=== PATIENT | female | born 1950 | race Caucasian/White ===

== ENCOUNTER → 2016-03-10 | Outpatient (CLI) | payer OTHER ==
[2016-03-10 09:38] VITALS: BMI 44.6
== END | disposition home or self-care (01) ==
LOC: MNTWWP 09:12
PROVIDERS: ATTEND Family Medicine
DX: E66.9 Obesity, unspecified (principal); Z68.41 Body mass index [BMI] 40.0-44.9, adult

== ENCOUNTER → 2016-03-13 | Outpatient (CLI) | payer OTHER ==
[2016-03-13 09:21] VITALS: BP 156/96; PULSE 114; RESP 14; TEMP 98.6; BMI 47.3
[2016-03-13 11:15] LABS: Anisocytosis Slight; CH 19.2; CHCM 28.4; HCT 33.9 % (34.0-46.0); HDW 3.41; HGB 9.5 gm/dL (11.4-16.0); Hypochromasia Marked; MCH 19.1 pg (25.0-35.0); MCHC 28.1 g/dL (31.0-37.0); Mean Platelet Volume 7.3; Microcytosis Marked; Poikilocytosis Slight; RBC 4.99 m/uL (3.80-5.40); RDW 17.7 % (11.5-15.5); WBC 8.3 k/uL (3.8-10.6)
[2016-03-13 11:35] LABS: ALT 44 U/L (9-52); AST 23 U/L (14-36); Alkaline Phosphatase 100 U/L (38-126); Anion Gap 13 mmol/L; Blood Urea Nitrogen 27 mg/dL (7-17); Calcium 9.8 mg/dL (8.4-10.2); Carbon Dioxide 27 mmol/L (22-30); Chloride 105 mmol/L (98-107); Cholesterol 200 mg/dL (<200); Glucose 132 mg/dL (74-99); HDL Cholesterol 46 mg/dL (40-60); Iron 27 ug/dL (37-170); Non-African American GFR(MDRD) >60 (>60 ml/min/1.73 sqM); Potassium 5.1 mmol/L (3.5-5.1); Sodium 145 mmol/L (137-145); Total Bilirubin 0.3 mg/dL (0.2-1.3); Total Protein 6.9 g/dL (6.3-8.2); Triglycerides 93 mg/dL (<150)
[2016-03-13 11:45] LABS: % Iron Saturation 5.5 % (20-50); Total Iron Binding Capacity 489 ug/dL (265-497)
[2016-03-13 12:21] LABS: Hemoglobin A1C 7.5 % (4.2-6.1)
[2016-03-13 12:40] LABS: Vitamin B12 950 pg/mL (239-931)
--- NOTE | 2016-03-30 17:42 | P.PN ---
Progress Note - Text DATE OF CONSULTATION: 03/13/2016 CHIEF COMPLAINT: Initial bariatric consultation. HISTORY OF PRESENT ILLNESS: Yamileth Jimenez is a very pleasant 65-year-old female who has long-standing history of morbid obesity. She has been evaluating for control of her weight for many, many years. At her height of 5 feet 5-1/2 inches, her ideal body weight is 149 pounds. Her highest weight is incidentally today at 289 pounds. Her body mass index is 47.3. She is 140 pounds overweight. Separately she developed comorbidities related to her obesity as well as end-stage osteoarthritis of the knees. She has already had 2 knee replacements along the right. Her left knee is bone on bone and also pending a knee replacement on the left. She also has osteoarthritis of the hands. She denies any gout, however. She does have degenerative joint disease of the lower back. She also has osteoarthritis of the bilateral ankles. She reports diabetes in her family as well as high blood pressure. She also has a terrible time with her sleep, with snoring as well as restless leg syndrome. She has yet to be treated for obstructive sleep apnea. She reports severe heartburn for over ten years. She is chronically on antacids. She had to actually discontinue Nexium because of untoward side effects. She has had multiple bladder suspension surgeries which failed, secondary to her weight. Since her gallbladder removal she denies any troubles with constipation. She denies any personal family history of Crohn's disease or food allergies. Now she presents for further evaluation and management, as she also complains of panniculitis of her abdomen. She comes in specifically looking into a sleeve gastrectomy as well. PAST MEDICAL HISTORY: 1. Gastroesophageal reflux disease. 2. Morbid obesity. 3. Osteoarthritis of the lower back. 4. Osteoarthritis of bilateral knees. 5. Osteoporosis of the ankles. 6. Hypertension. 7. Panniculitis. PAST SURGICAL HISTORY: 1. Cholecystectomy. 2. Multiple bladder suspension surgeries. 3. Bilateral inguinal hernias. 4. Pinnings along the fingers. 5. Umbilical hernia repair. 6. Right total knee replacement x2. 7. Left foot surgery. 8. Tonsillectomy. 9. History postoperative nausea and vomiting. MEDICATIONS: 1. Mirapex. 2. Prilosec. 3. Meloxicam. 4. Lasix. 5. Benazepril/hydrochlorothiazide. ALLERGIES: DENIES. SOCIAL HISTORY: Denies any active tobacco use, however, she is a former tobacco user. FAMILY HISTORY: Pertinent for morbid obesity, hypertension, diabetes that run in her family. REVIEW OF SYSTEMS: CONSTITUTIONAL: [place] body weight of 149 pounds for her 5-foot 5-1/2-inch frame. Highest weight of 289 pounds. Body mass index of 47.3. HEENT: Denies any troubles with vision or hearing. No reports of dysphagia. ENDOCRINE: Denies any active problems with diabetes or thyroid disorder. CARDIOVASCULAR: She has hypertension, for which she is on at least 2 different medications. She also had a previous cardiac catheterization performed in January of 2014 with findings of no evidence of pulmonary hypertension. Mild left ventricular hypertrophy was also identified. GASTROINTESTINAL: History of gastroesophageal reflux disease over 10 years. She reports intolerance to Nexium. She has been taking her medications daily. MUSCULOSKELETAL: Has osteoarthritis of the bilateral hands, lower back, bilateral knees. NEURO: No reports of stroke or seizure disorder. PSYCH: No reports of depression or suicidal ideation. HEMATOLOGIC: Denies any easy bruising or bleeding. PHYSICAL EXAM: VITAL SIGNS: 98.6, 114, 14, 156/96, 5 feet 5-1/2 inches, 289 pounds. Body mass index 47.3. GENERAL: Well-developed female in no acute distress. HEENT: No sclerae icterus. Extraocular movements grossly intact. Moist buccal mucosa. NECK: Supple without lymphadenopathy. CHEST: Non-labored respirations with equal bilateral excursions. CARDIOVASCULAR: Tachycardic. 2+ palpable pulses. ABDOMEN: Protuberant, soft, nondistended. Hyperemia including hyperpigmentation consistent with chronic panniculitis. MUSCULOSKELETAL: No clubbing, cyanosis or edema. NEURO: No focal or lateralizing signs. Cranial nerves 2 through 12 grossly within normal limits. PSYCH: Appropriate affect. Alert and oriented to person, place and time. LABS: Bariatric metabolic panel was obtained demonstrating hemoglobin low at 9.5. Prior hemoglobin 2 years ago was 10.6. MCV, MCH and MCHC are all low. Marked hyperchromasia identified. BUN elevated at 27. Glucose elevated at 132. Hemoglobin A1c elevated at 7.5. Iron is low at 27. Percent iron saturation also low at 5.5. Ferritin is low at 6. Cholesterol elevated at 200. LDL elevated at 135. Vitamin B12 elevated at 950. Vitamin D low at 20.4. TSH elevated at 8.4. ASSESSMENT: 1. Morbid obesity due to excess calories. 2. Body mass index 47.3. 3. Family history of morbid obesity. 4. Osteoarthritis of bilateral knees. 5. Osteoarthritis of bilateral ankles. 6. 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 7. Gastroesophageal reflux disease. 8. Intolerance to Nexium. 9. Chronic panniculitis. 10. Hypertensive heart disease. 11. Iron deficiency anemia. 12. Diabetes, type 2; new diagnosis. 13. Obstructive sleep apnea. 14. Hypercholesterolemia. 15. Vitamin D deficiency. 16. Hypothyroidism. 17. Restless leg syndrome. 18. Panniculitis. PLAN: 1. She has completed a bariatric metabolic panel with multiple dyscrasias as well as new diagnoses of hypothyroidism, vitamin deficiency, iron deficiency anemia and diabetes, type 2. 2. She reports severe gastroesophageal reflux disease and her current evaluation is for a sleeve gastrectomy. I have gone over with her that the risk of Hernandez's esophagus and her severe reflux may be contraindicated for her procedure of choice. Alternatives were also described at length. 3. She has panniculitis, for which nystatin powder was prescribed for her. 4. Her blood work demonstrates new diagnosis of diabetes, type 2. Recommend glycemic index and diabetic education. 5. Her iron is severely low. Recommend iron supplement. 6. Also would recommend upper and lower endoscopy, as she has anemia of unclear etiology. 7. Vitamin D supplementation 50,000 units weekly. 8. Also recommend start of thyroid supplement, which is essential for appropriate metabolism and for weight loss. 9. Recommend cardiac risk assessment, as on exam she had tachycardia of unclear etiology, and this is a high-risk operation as well. 10. Recommend psych assessment. 11. Recommend medical risk evaluation and clearance. 12. Recommend dietitian classes for gastrectomy-type procedures. 13. Also recommend evaluation for sleep apnea, as she reports restless leg syndrome, snoring and a poor sleep pattern. Thank you for this kind consultation.
== END | disposition home or self-care (01) ==
LOC: BARWHC3 08:50
PROVIDERS: ATTEND Surgery Plastic and Reconstructive Surgery
DX: Z48.815 Encounter for surgical aftercare following surgery on the digestive system (principal); E66.01 Morbid (severe) obesity due to excess calories; Z68.42 Body mass index [BMI] 45.0-49.9, adult; Z84.89 Family history of other specified conditions; M17.0 Bilateral primary osteoarthritis of knee; M19.072 Primary osteoarthritis, left ankle and foot; M19.071 Primary osteoarthritis, right ankle and foot; M47.896 Other spondylosis, lumbar region; K21.9 Gastro-esophageal reflux disease without esophagitis; T47.1X5A Adverse effect of other antacids and anti-gastric-secretion drugs, initial encounter; M79.3 Panniculitis, unspecified; I10 Essential (primary) hypertension; D50.9 Iron deficiency anemia, unspecified; E11.9 Type 2 diabetes mellitus without complications; E78.00 Pure hypercholesterolemia, unspecified; E55.9 Vitamin D deficiency, unspecified; E03.9 Hypothyroidism, unspecified; Z79.899 Other long term (current) drug therapy; Z87.891 Personal history of nicotine dependence; R13.10 Dysphagia, unspecified
CPT/HCPCS: 80053; 80061; 82306; 82607; 82728; 82746; 83036; 83540; 83550; 84425; 84443; 85027; 99201

== ENCOUNTER → 2016-03-20 | Outpatient (CLI) | payer OTHER ==
--- NOTE | 2016-03-21 07:39 | CT ---
EXAMINATION TYPE: CT abdomen pelvis w con DATE OF EXAM: 03/20/2016 7:47 PM REFERENCE: NONE HISTORY: R10.9 Abd and Pelvis Pain R19.09 Abd/Pel Mass HISTORY: Pt states of lump on right side of abdomen [id number]. REFERENCE: NONE CT DLP: 1990.6 mGy Automated exposure control for dose reduction was used. TECHNIQUE: Helical acquisition through the abdomen and pelvis was obtained following the oral ingesti on of with Oral Contrast and following intravenous administration of 100 mL of Omnipaque 300. The alma a was reformatted in axial, coronal and sagittal projections. FINDINGS: Visualized portions of the lungs are clear. There is no pleural or pericardial fluid. There is a moderate hiatal hernia. Within the abdomen, there is prominence of the liver which measures 24 cm. This is partially due to a Kita's lobe. The gallbladder is been removed. The spleen is normal. Both adrenal glands appear normal. Both kidneys demonstrate function and appear morphologically normal. The pancreas appears normal. There is no significant retroperitoneal, iliac or inguinal adenopathy. Uterus and ovaries are unremarkable. The bladder is not distended. There is no significant diverticular change and there is no radiographic evidence of diverticulitis. The appendix is not visualized. Small bowel loops appear normal. There is a ventral hernia containing fat only with a mouth measuring 5.5 cm. No free fluid and no free air is seen. There is hypertrophic spondylosis as well as severe degenerative disc disease within the spine. There is a moderate levoscoliosis. IMPRESSION: 1. VENTRAL HERNIA CONTAINING FAT ONLY MAY BE THE SOURCE OF THE PATIENT'S ABDOMINAL MASS. 2. PROMINENT HIATAL HERNIA. 3. HEPATOMEGALY. 4. LEVOSCOLIOSIS AND SEVERE DEGENERATIVE CHANGES WITHIN THE SPINE.
--- NOTE | 2016-05-14 08:25 | P.GSHP ---
History of Present Illness H&P Date: 05/14/16 CHIEF COMPLAINT: GERD HISTORY OF PRESENT ILLNESS: The patient is a 65-year-old male who presents reports gastroesophageal reflux disease. Upper endoscopy was offered for further evaluation and management. PAST MEDICAL HISTORY: Please see list. PAST SURGICAL HISTORY: Please see list. MEDICATIONS: Please see list. ALLERGIES: Please see list. SOCIAL HISTORY: No illicit drug use FAMILY HISTORY: No reports of Crohn disease or ulcerative colitis. REVIEW OF ORGAN SYSTEMS: CONSTITUTIONAL: No reports of fevers or chills. GI: Denies any blood in stools or constipation. PHYSICAL EXAM: VITAL SIGNS: Stable GENERAL: Well-developed and pleasant in no acute distress. HEENT: No scleral icterus. Extraocular movements grossly intact. Moist buccal mucosa. NECK: Supple without lymphadenopathy. CHEST: Unlabored respirations. Equal bilateral excursions. CARDIOVASCULAR: Regular rate and rhythm. Distal 2+ pulses. ABDOMEN: Soft, nondistended. MUSCULOSKELETAL: No clubbing, cyanosis, or edema. ASSESSMENT: 1. Gastroesophageal reflux disease PLAN: 1. Recommend proceeding with an upper endoscopy Past Medical History Past Medical History: GERD/Reflux, Hypertension, Osteoarthritis (OA) Additional Past Medical History / Comment(s): patient states that she has a 20% reduction in breathing/lung capacity as of March 2016, Water retention, restless leg syndrome, hiatal hernia dx in March 2016, LEFT KNEE IS "BONE ON BONE" patient completed series of 3 Symvis injections in March 2016 (after cortisone failed) History of Any Multi-Drug Resistant Organisms: None Reported Past Surgical History: Cholecystectomy, Hernia Repair, Joint Replacement, Orthopedic Surgery, Tonsillectomy Additional Past Surgical History / Comment(s): Inguinal HERNIA REPAIR X7,1 umbilical hernia, RT TOT KNEE,BLADDER SURGERY,LT FOOT SURGERY, FUSIONS TO 2ND DIGITS OF LEFT HAND, RT HAND HAS METAL PLATE (NOT FUSION) IN DIGIT 2, EYELID LIFT Past Anesthesia/Blood Transfusion Reactions: Postoperative Nausea & Vomiting ( PONV) Additional Past Anesthesia/Blood Transfusion Reaction / Comment(s): NO HX OF TRANSFUSION Past Psychological History: No Psychological Hx Reported Smoking Status: Former smoker Past Alcohol Use History: Rare Additional Past Alcohol Use History / Comment(s): STARTED SMOKING AT AGE 20 QUIT SMOKING AT AGE 22 Past Drug Use History: None Reported - Past Family History Father Family Medical History: Hypertension, Osteoarthritis (OA) Additional Family Medical History / Comment(s): FROM HEART ISSUES AT AGE 86 Mother Family Medical History: Hypertension, Osteoarthritis (OA) Additional Family Medical History / Comment(s): CANCEROUS TUMOR IN LUNG (NOT CANCER PER PATIENT), AT AGE 80 FROM HEART ATTACK Medications and Allergies Home Medications Medication Instructions Recorded Confirmed Type Meloxicam 15 mg PO QAM 02/13/14 05/14/16 History Omeprazole [PriLOSEC] 20 mg PO QAM 02/13/14 05/14/16 History Pramipexole [Mirapex] 3 mg PO HS 02/13/14 05/14/16 History Benazepril HCl 40 mg PO QAM 03/31/16 05/14/16 History Furosemide [Lasix] 20 mg PO QAM 03/31/16 05/14/16 History Allergies Allergy/AdvReac Type Severity Reaction Status Date / Time No Known Allergies Allergy Verified 05/12/16 14:32
== END | disposition home or self-care (01) ==
LOC: RADCTMAIN 17:30
PROVIDERS: ATTEND Surgery Plastic and Reconstructive Surgery
DX: K43.9 Ventral hernia without obstruction or gangrene (principal); K44.9 Diaphragmatic hernia without obstruction or gangrene; R16.0 Hepatomegaly, not elsewhere classified; R19.4 Change in bowel habit; R10.13 Epigastric pain
CPT/HCPCS: 74177; Q9967

== ENCOUNTER 2016-05-14 07:39 | Day surgery (SDC) | payer OTHER ==
[2016-03-31 15:51] VITALS: BMI 44.6
[~2016-05-14 07:39] MED LIST: LACTATED RINGERS 1,000 ML IV SCH; LIDOCAINE 1% 20 ML VIAL (10MG/ML) FOR IV START INTRADERMA PRN
[2016-05-14 08:16] VITALS: TEMP 97
[2016-05-14] MEDS ORDERED: ONDANSETRON 4 MG/2 ML VIAL IVP ONE (08:17)
--- NOTE | 2016-05-14 08:29 | P.GSHP ---
History of Present Illness H&P Date: 05/14/16 CHIEF COMPLAINT: GERD HISTORY OF PRESENT ILLNESS: The patient is a 65-year-old female who presents reports gastroesophageal reflux disease. Upper endoscopy was offered for further evaluation and management. PAST MEDICAL HISTORY: Please see list. PAST SURGICAL HISTORY: Please see list. MEDICATIONS: Please see list. ALLERGIES: Please see list. SOCIAL HISTORY: No illicit drug use FAMILY HISTORY: No reports of Crohn disease or ulcerative colitis. REVIEW OF ORGAN SYSTEMS: CONSTITUTIONAL: No reports of fevers or chills. GI: Denies any blood in stools or constipation. PHYSICAL EXAM: VITAL SIGNS: Stable GENERAL: Well-developed and pleasant in no acute distress. HEENT: No scleral icterus. Extraocular movements grossly intact. Moist buccal mucosa. NECK: Supple without lymphadenopathy. CHEST: Unlabored respirations. Equal bilateral excursions. CARDIOVASCULAR: Regular rate and rhythm. Distal 2+ pulses. ABDOMEN: Soft, nondistended. MUSCULOSKELETAL: No clubbing, cyanosis, or edema. ASSESSMENT: 1. Gastroesophageal reflux disease PLAN: 1. Recommend proceeding with an upper endoscopy Past Medical History Past Medical History: GERD/Reflux, Hypertension, Osteoarthritis (OA), Skin Disorder Additional Past Medical History / Comment(s): Restless leg syndrome, hiatal hernia. RESTLESS LEG. cHAFING TO GROIN AND BREASTS. History of Any Multi-Drug Resistant Organisms: None Reported Past Surgical History: Adenoidectomy, Bladder Surgery, Cholecystectomy, Hernia Repair, Joint Replacement, Orthopedic Surgery, Tonsillectomy Additional Past Surgical History / Comment(s): Inguinal HERNIA REPAIR X7,1 umbilical hernia, RT TOTAL KNEE x2,BLADDER SURGERY,LT FOOT SURGERY,LEFT INDEX FINGER X2 SURG. RT HAND HAS METAL PLATE. EYELID LIFT,LASIK SURG ALISHA. Past Anesthesia/Blood Transfusion Reactions: Postoperative Nausea & Vomiting ( PONV) Additional Past Anesthesia/Blood Transfusion Reaction / Comment(s): NO HX OF TRANSFUSION Past Psychological History: No Psychological Hx Reported Smoking Status: Former smoker Past Alcohol Use History: Rare Additional Past Alcohol Use History / Comment(s): STARTED SMOKING AT AGE 20, QUIT SMOKING AT AGE 22, SMOKED 1/2 PPD. Past Drug Use History: None Reported - Past Family History Father Family Medical History: Hypertension, Osteoarthritis (OA) Additional Family Medical History / Comment(s): FROM HEART ISSUES AT AGE 86 Mother Family Medical History: Hypertension, Osteoarthritis (OA) Additional Family Medical History / Comment(s): CANCEROUS TUMOR IN LUNG (NOT CANCER PER PATIENT), AT AGE 80 FROM HEART ATTACK Medications and Allergies Home Medications Medication Instructions Recorded Confirmed Type Meloxicam 15 mg PO QAM 02/13/14 05/14/16 History Omeprazole [PriLOSEC] 20 mg PO QAM 02/13/14 05/14/16 History Pramipexole [Mirapex] 3 mg PO HS 02/13/14 05/14/16 History Benazepril HCl 40 mg PO QAM 03/31/16 05/14/16 History Furosemide [Lasix] 20 mg PO QAM 03/31/16 05/14/16 History Allergies Allergy/AdvReac Type Severity Reaction Status Date / Time No Known Allergies Allergy Verified 05/12/16 14:32 Surgical - Exam Vital Signs Temp Pulse Resp BP Pulse Ox 97.0 F L 105 H 14 169/86 95 05/14/16 08:14 05/14/16 08:14 05/14/16 08:14 05/14/16 08:14 05/14/16 08:14
[2016-05-14] MEDS ORDERED: GLYCOPYRROLATE 0.2 MG/ML 2 ML VIAL ONE (08:30)
[2016-05-14] MEDS ORDERED: LIDOCAINE 1% INJ 10MG/ML (20 ML MDV) ONE (08:30)
[2016-05-14] MEDS ORDERED: PROPOFOL 10 MG/ML 20 ML VIAL IV ONE (08:30)
--- NOTE | 2016-05-14 08:51 | P.PCN ---
Date of Procedure: 05/14/16 Description of Procedure: PREOPERATIVE DIAGNOSIS: Gastroesophageal reflux disease. POSTOPERATIVE DIAGNOSIS: Chronic gastritis with stigmata of bleed Diaphragmatic hiatal hernia, type III. Gastroesophageal reflux disease. OPERATION: Esophagogastroduodenoscopy with biopsies along antrum. SURGEON: Alexia Trujillo MD ANESTHESIA: MAC. INDICATIONS: The patient is a 65-year-old female who presents with a history of reflux disease. Benefits and risks of the procedure were described. Informed consent was obtained. DESCRIPTION: The patient was brought into the endoscopy suite and laid in the left lateral decubitus position. An Olympus gastroscope was passed along the posterior oropharynx down to the distal esophagus where the squamocolumnar junction was encountered at 33 cm from the incisors. The stomach was entered and moderatel bile reflux was found. Additional findings are listed below. Biopsies with cold forceps were obtained of the antrum. The first through third portion of the duodenum was examined and unremarkable. Retroflexion of the scope confirmed Hill grade 4 lower esophageal valve. The squamocolumnar junction demostrated LA grade B erosive esophagitis. The stomach was desufflated. The patient tolerated the procedure well. FINDINGS: Squamocolumnar junction 33 cm from the incisors. Diaphragmatic hiatal hernia, mixed type II and type III sliding type 7 cm. Diaphragmatic hiatus at 40 cm from the incisors Hill grade 4 lower esophageal valve. LA grade B erosive esophagitis. Active gastritis superficial along antrum with recent stigmata of bleed. No active duodenitis. RECOMMENDATIONS: Continue medical therapy. Further recommendations pending results of pathology report. Upper endoscopy as needed.
[2016-05-14 08:53] VITALS: RESP 16
[2016-05-14 09:10] VITALS: BP 135/88; PULSE 102
== END 2016-05-14 10:09 | disposition home or self-care (01) ==
LOC: ORWHC2ENDO 07:39
PROVIDERS: ATTEND Surgery Plastic and Reconstructive Surgery
DX: K21.0 Gastro-esophageal reflux disease with esophagitis (principal); K22.10 Ulcer of esophagus without bleeding; K29.31 Chronic superficial gastritis with bleeding; K44.9 Diaphragmatic hernia without obstruction or gangrene; I10 Essential (primary) hypertension; G25.81 Restless legs syndrome; M19.90 Unspecified osteoarthritis, unspecified site; Z87.891 Personal history of nicotine dependence; E66.01 Morbid (severe) obesity due to excess calories; Z68.41 Body mass index [BMI] 40.0-44.9, adult; Z79.899 Other long term (current) drug therapy
CPT/HCPCS: 88305; 88342; 43239; J2405; J2001; J2704

== ENCOUNTER → 2016-05-22 | Outpatient (CLI) | payer OTHER ==
[2016-05-22 12:17] VITALS: BP 189/106; PULSE 107; RESP 16; TEMP 98.6; BMI 46.9
--- NOTE | 2016-06-19 21:57 | P.PN ---
Progress Note - Text DATE OF SERVICE: 05/22/2016. CHIEF COMPLAINT: Bariatric assessment. HISTORY OF PRESENT ILLNESS: Yamileth Jimenez is a 65-year-old female who initially presented to the bariatric program in July 2016. At her 5 feet 5-1/2 inches, her ideal body weight is 149 pounds. Her highest weight was 289 pounds. Today she comes in weighing 286 pounds. Body mass index is down from 47.5 down to 46.9. She is 137 pounds overweight. She has completed an upper endoscopy. She also is pending further medical risk assessment. PAST MEDICAL HISTORY: 1. Gastroesophageal reflux disease. 2. Morbid obesity. 3. Osteoarthritis of the lower back. 4. Osteoarthritis of bilateral knees. 5. Osteoporosis of the ankles. 6. Hypertension. 7. Panniculitis. PAST SURGICAL HISTORY: 1. Cholecystectomy. 2. Multiple bladder suspension surgeries. 3. Bilateral inguinal hernias. 4. Pinnings along the fingers. 5. Umbilical hernia repair. 6. Right total knee replacement x2. 7. Left foot surgery. 8. Tonsillectomy. 10. Upper endoscopy. MEDICATIONS: 1. Mirapex. 2. Prilosec. 3. Meloxicam. 4. Lasix. 5. Benazepril/hydrochlorothiazide. ALLERGIES: DENIES. SOCIAL HISTORY: Denies any active tobacco use, however, she is a former tobacco user. FAMILY HISTORY: Pertinent for morbid obesity, hypertension, diabetes that run in her family. REVIEW OF SYSTEMS: CONSTITUTIONAL: [place] body weight is 149 pounds. She is 137 pounds overweight. HEENT: Denies any troubles with vision or hearing. No reports of dysphagia. ENDOCRINE: Denies any active problems with diabetes or thyroid disorder. CARDIOVASCULAR: She has hypertension, for which she is on at least 2 different medications. She also had a previous cardiac catheterization performed in January of 2014 with findings of no evidence of pulmonary hypertension. Mild left ventricular hypertrophy was also identified. GASTROINTESTINAL: History of gastroesophageal reflux disease over 10 years. She reports intolerance to Nexium. She has been taking her medications daily. MUSCULOSKELETAL: Has osteoarthritis of the bilateral hands, lower back, bilateral knees. NEURO: No reports of stroke or seizure disorder. PSYCH: No reports of depression or suicidal ideation. HEMATOLOGIC: Denies any easy bruising or bleeding. PHYSICAL EXAM: VITAL SIGNS: 98.6, 107, 16, 189/106, 5 feet 5-1/2 inches, 289 pounds. Body mass index 47.3. GENERAL: Well-developed female in no acute distress. HEENT: No sclerae icterus. Extraocular movements grossly intact. Moist buccal mucosa. NECK: Supple without lymphadenopathy. CHEST: Non-labored respirations with equal bilateral excursions. CARDIOVASCULAR: Tachycardic. 2+ palpable pulses. ABDOMEN: Protuberant, soft, nondistended. Hyperemia including hyperpigmentation consistent with chronic panniculitis. Soft, nontender, nondistended. MUSCULOSKELETAL: No clubbing, cyanosis or edema. NEURO: No focal or lateralizing signs. Cranial nerves 2 through 12 grossly within normal limits. PSYCH: Appropriate affect. Alert and oriented to person, place and time. STUDIES: Upper endoscopy demonstrates a large diaphragmatic hiatal hernia of over 7 cm. LA grade B erosive esophagitis identified. Gastritis also identified. Pathology consistent with chronic gastritis. LABS: Bariatric metabolic panel reviewed, demonstrating hemoglobin was low at 9.5. Hematocrit low at 33.9. BUN elevated at 27. Glucose elevated at 132, hemoglobin A1c elevated 10.5. Iron was 27. Percent iron saturation was 5.5. Ferritin was 6. Cholesterol elevated at 200. HDL elevated at 135. Vitamin B12 elevated at 950. Vitamin D low at 20.4. TSH elevated at 8.4. ASSESSMENT: 1. Morbid obesity due to excess calories. 2. Body mass index reduced from 47.5 down to 46.9. 3. Family history of morbid obesity. 4. Osteoarthritis of bilateral knees. 5. Osteoarthritis of bilateral ankles. 6. 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 7. Gastroesophageal reflux disease. 8. Intolerance to Nexium. 9. Chronic panniculitis. 10. Hypertensive heart disease. 11. Iron deficiency anemia. 12. Diabetes, type 2; new diagnosis. 13. Obstructive sleep apnea. 14. Hypercholesterolemia. 15. Vitamin D deficiency. 16. Hypothyroidism. 17. Restless leg syndrome. 18. Panniculitis. 19. Poorly controlled hypothyroidism. PLAN: 1. I recommend correction of thyroid whereby recommend increase in her thyroid medication. 2. I recommend vitamin D supplements. 3. Recommend iron supplements. 4. With her findings of very large diaphragmatic hiatal hernia, I recommend repair at the time of her procedure of choice. 5. Recommend diabetic education. 6. With her findings may also benefit from gastric bypass was also described. 7. Recommend referral to a sleep center for obstructive sleep apnea management. 8. Also recommend psychological assessment per insurance guidelines. 9. Recommend recheck of blood work after correction of thyroid and iron. Will need at least 3 months for correction for iron or iron infusion.
== END | disposition home or self-care (01) ==
LOC: BARWHC3 10:22
PROVIDERS: ATTEND Surgery Plastic and Reconstructive Surgery
DX: Z48.815 Encounter for surgical aftercare following surgery on the digestive system (principal); E66.01 Morbid (severe) obesity due to excess calories; Z68.42 Body mass index [BMI] 45.0-49.9, adult; E89.1 Postprocedural hypoinsulinemia; E44.0 Moderate protein-calorie malnutrition; Z98.84 Bariatric surgery status; E11.65 Type 2 diabetes mellitus with hyperglycemia; Z79.899 Other long term (current) drug therapy
CPT/HCPCS: 99211

== ENCOUNTER → 2016-07-03 | Outpatient (CLI) | payer OTHER ==
--- NOTE | 2016-07-03 19:46 | CONS ---
DATE OF CONSULTATION: 07/03/2016 This patient is a 65-year-old lady who has been evaluated in the sleep center for possible obstructive sleep apnea-hypopnea syndrome. HISTORY OF PRESENT ILLNESS/SLEEP-WAKE EVALUATION: Patient had a sleep study done about 15 years ago in a different institution. At that time she was told about restless leg syndrome and possible periodic limb movements. Since that sleep study, patient's weight has increased by about 100 pounds. At present her sleep schedule on working days is from around 10 p.m. until 6 a.m., on weekends from around 10 p.m. until 7 a.m. Sometimes she may have problems with falling asleep. No TV in bedroom. She sleeps on the side or stomach position; prefers not to sleep on her back. She has loud snoring, multiple awakenings from sleep, about 3 times, with 3 episodes of nocturia, symptoms of restless legs, although she is on treatment with pramipexole. During the day she feel sleepiness. Martinez Sleepiness Scale is significantly increased at 13. She takes one nap around 2 p.m. No vivid dreams during naps. Past medical history is positive for: 1. Recently developed significant swelling of the legs. 2. History of hypothyroidism. 3. Diabetes mellitus. 4. Acid reflux. 5. Polyarthritis. 6. Allergies. 7. Hiatal hernia. PAST SURGICAL HISTORY: Right knee replacement. MEDICATIONS: 1. Metformin. 2. Meloxicam. 3. Vitamin D. 4. Furosemide. 5. Iron supplement. 6. Thyroid supplement. 7. Omeprazole. 8. Pramipexole. 9. Zyrtec. SOCIAL HISTORY: Positive for smoking for 2 years in her 20s. Alcohol consumption rarely. FAMILY HISTORY: Hypertension, arthritis, snoring, acid reflux, diabetes, thyroid problems, restless legs. PHYSICAL EXAMINATION: GENERAL: A pleasant 65-year-old lady without distress. VITAL SIGNS: BP 165/80, HR 106, RR 16. Height 5 feet 5 inches. Weight 295. BMI 49.0. Neck 15-1/2 inches in circumference. Temperature 98.0. Oxygen saturation at room air 97%. HEENT: PERRLA, EOMI. Evaluation of oropharynx showed tongue protrudes midline; extremely low position of soft palate. Restriction of nasal breathing bilaterally. NECK: Supple. No JVD. Thyroid is not palpable. LUNGS: Clear to percussion and to auscultation. Good air exchange. No wheezing or rhonchi. HEART: Systolic murmur on aorta. ABDOMEN: Obese. EXTREMITIES: Two plus bilateral ankle edema. RUG MEASURER: Awake, alert, and oriented x3. Cranial nerves 2 to 7 intact. There is no fasciculation or atrophy noted. No focal deficits observed. IMPRESSION: 1. Snoring, multiple awakenings from sleep with nocturia, extremely low position of soft palate, excessive daytime sleepiness, obesity; obstructive sleep apnea-hypopnea syndrome. 2. Morbid obesity; body mass index of 49.0. 3. Hypertension in the office. 4. Diabetes mellitus. 5. Hypothyroidism. 6. Acid reflux. 7. Systolic murmur on aorta. 8. Allergies. 9. Restriction of nasal breathing. 10. Status post total right knee replacement x2. 11. History of hiatal hernia. 12. History of iron deficiency anemia. 13. History of restless legs, on treatment with Pramipexole. PLAN: 1. Polysomnography for evaluation of patient's breathing during sleep. 2. CPAP/BiPAP titration if sleep study confirms obstructive sleep apnea-hypopnea syndrome. 3. Preferable position during sleep on the side. 4. No driving if patient feels any sleepiness. Patient is aware of civil and criminal liability for unsafe driving. 5. I will see patient for follow-up visit to explain results of the testing and following plan. 6. Consider echocardiogram. Thank you very much for referring this patient for consultation. Sincerely, Easton Haynes MD, PhD, FAASM. Diplomat of [place] [employer], Sleep Medicine Board by [place] [employer] [place] [employer] Traffic Control Technician of [facility]
== END ==
LOC: SLEEP 15:06
PROVIDERS: ATTEND Internal Medicine
DX: G47.33 Obstructive sleep apnea (adult) (pediatric) (principal); E66.01 Morbid (severe) obesity due to excess calories; I10 Essential (primary) hypertension; E11.9 Type 2 diabetes mellitus without complications; E03.9 Hypothyroidism, unspecified; K21.9 Gastro-esophageal reflux disease without esophagitis; K44.9 Diaphragmatic hernia without obstruction or gangrene; R01.1 Cardiac murmur, unspecified; D50.9 Iron deficiency anemia, unspecified; Z87.891 Personal history of nicotine dependence; Z79.1 Long term (current) use of non-steroidal anti-inflammatories (NSAID); Z68.42 Body mass index [BMI] 45.0-49.9, adult; G25.81 Restless legs syndrome
CPT/HCPCS: 99211

== ENCOUNTER → 2016-08-02 | Outpatient (CLI) | payer OTHER ==
[2016-08-02 10:02] LABS: Anisocytosis Slight; CH 22.7; CHCM 29.4; HCT 39.8 % (34.0-46.0); HDW 2.84; HGB 11.8 gm/dL (11.4-16.0); Hypochromasia Marked; MCH 22.8 pg (25.0-35.0); MCHC 29.6 g/dL (31.0-37.0); MCV 77.2 fL (80.0-100.0); Mean Platelet Volume 7.5; Microcytosis Moderate; RBC 5.16 m/uL (3.80-5.40); RDW 19.1 % (11.5-15.5); WBC 6.9 k/uL (3.8-10.6)
[2016-08-02 10:08] LABS: ALT 36 U/L (9-52); AST 21 U/L (14-36); Alkaline Phosphatase 89 U/L (38-126); Anion Gap 8 mmol/L; Blood Urea Nitrogen 23 mg/dL (7-17); Calcium 9.6 mg/dL (8.4-10.2); Carbon Dioxide 28 mmol/L (22-30); Chloride 106 mmol/L (98-107); Glucose 142 mg/dL (74-99); Non-African American GFR(MDRD) >60 (>60 ml/min/1.73 sqM); Potassium 4.7 mmol/L (3.5-5.1); Sodium 142 mmol/L (137-145); Total Bilirubin 0.4 mg/dL (0.2-1.3); Total Protein 7.3 g/dL (6.3-8.2)
[2016-08-02 12:46] LABS: Hemoglobin A1C 7.6 % (4.2-6.1)
== END | disposition home or self-care (01) ==
LOC: LABWHC1 09:36
PROVIDERS: ATTEND Surgery Plastic and Reconstructive Surgery
DX: E66.01 Morbid (severe) obesity due to excess calories (principal); E44.0 Moderate protein-calorie malnutrition; E89.1 Postprocedural hypoinsulinemia
CPT/HCPCS: 36415; 80053; 83036; 84443; 85027

== ENCOUNTER 2016-08-21 12:00 | Inpatient (IN) | payer OTHER ==
[2016-08-19 10:42] VITALS: BMI 44.6
[2016-08-22] MEDS ORDERED: HEPARIN SODIUM,PORCINE 5,000 UNIT/ML 1 ML VIAL SQ ONE (05:00)
[2016-08-22] MEDS ORDERED: DEXAMETHASONE SOD PHOSPHATE 10 MG/ML 1 ML VIAL IV ONE (05:27)
[2016-08-22] MEDS ORDERED: ONDANSETRON 4 MG/2 ML VIAL IVP ONE (05:27)
[2016-08-22] MEDS ORDERED: ACETAMINOPHEN IV (For NPO) 1,000 MG in EMPTY BAG 1 BAG IVPB ONE (11:12)
--- NOTE | 2016-08-22 11:12 | P.GSHP ---
History of Present Illness H&P Date: 08/22/16 CHIEF COMPLAINT: Paraesophageal hiatal hernia with gastroesophageal reflux disease. HISTORY OF PRESENT ILLNESS: The patient is a 65-year-old female who presents with paraesophageal hiatal hernia. She has completed an upper endoscopy workup. Now she presents for surgical intervention. PAST MEDICAL HISTORY: Please see list. PAST SURGICAL HISTORY: Please see list. MEDICATIONS: Please see list. ALLERGIES: Please see list. SOCIAL HISTORY: No illicit drug use FAMILY HISTORY: No reports of Crohn disease or ulcerative colitis. REVIEW OF ORGAN SYSTEMS: CONSTITUTIONAL: No reports of fevers or chills. GI: Denies any blood in stools or constipation. PHYSICAL EXAM: VITAL SIGNS: Stable GENERAL: Well-developed pleasant and in no acute distress. HEENT: No scleral icterus. Extraocular movements grossly intact. Moist buccal mucosa. NECK: Supple without lymphadenopathy. CHEST: Unlabored respirations. Equal bilateral excursions. CARDIOVASCULAR: Regular rate and rhythm. Distal 2+ pulses. ABDOMEN: Soft, nondistended. No peritoneal signs. MUSCULOSKELETAL: No clubbing, cyanosis, or edema. ASSESSMENT: 1. Diaphragmatic paraesophageal hiatal hernia with severe gastroesophageal reflux disease. PLAN: 1. Recommend proceeding with a laparoscopic paraesophageal hiatal hernia with possible mesh. 2. Benefits and risks of surgical intervention was discussed including possibility of open technique. 3. Inpatient hospitalization recommended of 2 nights or less. 4. DVT prophylaxis. 5. Antibiotic prophylaxis. 6. She has also completed a very low caloric high-protein diet to address underlying hepatomegaly. Past Medical History Past Medical History: Diabetes Mellitus, GERD/Reflux, Hypertension, Osteoarthritis (OA), Sleep Apnea/CPAP/BIPAP Additional Past Medical History / Comment(s): patient states that she has a 20% reduction in breathing/lung capacity as of March 2016, Water retention, restless leg syndrome, hiatal hernia dx in March 2016, LEFT KNEE IS "BONE ON BONE" patient completed series of 3 Symvis injections in March 2016 (after cortisone failed) , RECENT DX OF KARAN-TO GET CPAP BUT WILL NOT HAVE BY PROCEDURE DATE History of Any Multi-Drug Resistant Organisms: None Reported Past Surgical History: Cholecystectomy, Hernia Repair, Joint Replacement, Orthopedic Surgery, Tonsillectomy Additional Past Surgical History / Comment(s): Inguinal HERNIA REPAIR X7,1 umbilical hernia, RT TKA,BLADDER SURGERY,LT FOOT SURGERY, FUSIONS TO 2ND DIGITS OF LEFT HAND, RT HAND HAS METAL PLATE (NOT FUSION) IN DIGIT 2, EYELID LIFT, RECENT CORTISONE INJECTION LT SHOULDER Past Anesthesia/Blood Transfusion Reactions: Postoperative Nausea & Vomiting ( PONV) Additional Past Anesthesia/Blood Transfusion Reaction / Comment(s): NO HX OF TRANSFUSION Smoking Status: Former smoker - Past Family History Father Family Medical History: Hypertension, Osteoarthritis (OA) Additional Family Medical History / Comment(s): FROM HEART ISSUES AT AGE 86 Mother Family Medical History: Cancer, Hypertension, Osteoarthritis (OA) Additional Family Medical History / Comment(s): CANCEROUS TUMOR IN LUNG (NOT LUNG CANCER PER PATIENT), AT AGE 80 FROM HEART ATTACK Medications and Allergies Home Medications Medication Instructions Recorded Confirmed Type Pramipexole [Mirapex] 3 mg PO HS 02/13/14 08/19/16 History Benazepril HCl 40 mg PO QAM 03/31/16 08/19/16 History Furosemide [Lasix] 20 mg PO QAM 03/31/16 08/19/16 History Ergocalciferol [Vitamin D2 50,000 unit PO MO 08/19/16 08/19/16 History (DRISDOL)] Allergies Allergy/AdvReac Type Severity Reaction Status Date / Time No Known Allergies Allergy Verified 08/19/16 10:33
[2016-08-22] MEDS: LACTATED RINGERS 1,000 ML IV SCH (14:17)
[2016-08-22 14:24] LABS: Glucose,Whole Blood 130 mg/dL (75-99)
[2016-08-22] MEDS ORDERED: VECURONIUM 10 MG VIAL IV ONE (17:34)
[2016-08-22] MEDS ORDERED: GLYCOPYRROLATE 0.2 MG/ML 2 ML VIAL ONE (17:34)
[2016-08-22] MEDS ORDERED: PHENYLEPHRINE-0.9% NACL SYG 1 MG/10 ML SYRINGE ONE (17:34)
[2016-08-22] MEDS ORDERED: KETOROLAC 30 MG/ML 1 ML VIAL ONE (17:34)
[2016-08-22] MEDS ORDERED: MIDAZOLAM 2 MG/2 ML VIAL ONE (17:34)
[2016-08-22] MEDS ORDERED: PROPOFOL 10 MG/ML 20 ML VIAL IV ONE (17:34)
[2016-08-22] MEDS ORDERED: SUCCINYLCHOLINE CHLORIDE VIAL 200 MG/10 ML VIAL IV ONE (17:34)
[2016-08-22] MEDS: ceFAZolin 3 GM in SODIUM CHLORIDE 0.9% 100 ML IVPB ONE ×2 (17:34→18:02)
[2016-08-22] MEDS ORDERED: LIDOCAINE 1% INJ 10MG/ML (20 ML MDV) ONE (17:34)
[2016-08-22] MEDS ORDERED: NEOSTIGMINE 1 MG/ML 10 ML VIAL ONE (17:34)
[2016-08-22] MEDS ORDERED: fentaNYL (PF) 50 MCG/ML 2 ML AMP ONE (17:34)
[2016-08-22] MEDS ORDERED: BUPIVACAIN-EPI 0.5%-1:200,000 30 ML VIAL SQ ONE (18:13)
[2016-08-22] MEDS ORDERED: LACTATED RINGERS 1,000 ML IV ONE (19:14)
[2016-08-22] MEDS ORDERED: NALOXONE 0.4 MG/ML 1 ML VIAL IV PRN (21:09)
[2016-08-22] MEDS ORDERED: ONDANSETRON 4 MG/2 ML VIAL IVP PRN (21:09)
--- NOTE | 2016-08-22 21:09 | P.PCN ---
Date of Procedure: 08/22/16 Preoperative Diagnosis: Paraesophageal diaphragmatic midline hiatal hernia, gastroesophageal reflux disease Postoperative Diagnosis: Same Procedure(s) Performed: Robotic-assisted laparoscopic reduction of incarcerated paraesophageal midline hernia with repair using 8 x 8 cm [place] Biopatch a, intraoperative EGD, excision of mediastinal mass Implants: Anesthesia: GETA, local Surgeon: Alexia Trujillo Estimated Blood Loss (ml): 30 Pathology: other (Mediastinal mass with hernia sac) Condition: stable Disposition: floor Indications for Procedure: 1. Thoracic length 17 cm. 2. Port placed 15 cm distal. 3. Incarcerated upper pole of the stomach within the mediastinum with moderate dissection performed with resection of mediastinal lipoma and sac. Operative Findings: Description of Procedure:
[2016-08-22] MEDS ORDERED: SCOPOLAMINE 1.5MG/72HR PATCH TRANSDERM STA (21:10)
[2016-08-22] MEDS ORDERED: HYDROmorphone 1 MG/ML 1 ML SYRINGE IVP PRN (21:12)
[2016-08-22] MEDS: HYDROmorphone 1 MG/ML 1 ML SYRINGE IVP PRN ×2 (21:13→21:19)
[2016-08-22] MEDS ORDERED: ACETAMINOPHEN IV (For NPO) 1,000 MG/100 ML VIAL IVPB ONE (21:14)
[2016-08-22] MEDS ORDERED: DEXAMETHASONE SOD PHOSPHATE 10 MG/ML 1 ML VIAL IV STA (21:15)
[2016-08-22 21:31] LABS: Glucose,Whole Blood 170 mg/dL (75-99)
[2016-08-22] MEDS ORDERED: TAMSULOSIN 0.4 MG CAP.ER.24H PO STA (21:47)
[2016-08-23] MEDS: ceFAZolin 3 GM in SODIUM CHLORIDE 0.9% 100 ML IVPB SCH ×2 (00:09→08:32)
[2016-08-23] MEDS: METOCLOPRAMIDE 5 MG/ML 2 ML VIAL IVP SCH ×3 (00:11→12:09)
[2016-08-23] MEDS: KETOROLAC 30 MG/ML 1 ML VIAL IVP SCH ×3 (00:11→12:09)
[2016-08-23] MEDS: HYOSCYAMINE ORAL DROPS 1.875 MG/15 ML BOTTLE PO SCH ×4 (00:12→12:08)
[2016-08-23 00:24] LABS: Glucose,Whole Blood 130 mg/dL (75-99)
[2016-08-23] MEDS: INSULIN LISPRO (humaLOG) 300 UNIT/3 ML VIAL SQ SCH ×2 (00:25→08:38)
[2016-08-23] MEDS ORDERED: PRAMIPEXOLE 1 MG TAB PO SCH (01:30)
[2016-08-23] MEDS: LACTATED RINGERS 1,000 ML IV SCH (03:42)
[2016-08-23] MEDS ORDERED: LEVOTHYROXINE 50 MCG TAB PO SCH (06:30)
--- NOTE | 2016-08-23 07:51 | FL ---
EXAMINATION TYPE: FL esophagus cervic/pharynx DATE OF EXAM ORDERED: 08/23/2016 7:41 AM HISTORY: Postop Valentino fundoplication. COMPARISON: None. FINDINGS: The patient drank Omnipaque with ease. There is prompt egress of contrast from the distal esophagus into the stomach. There is no evidence of extravasation. No significant free air was seen. IMPRESSION: STATUS POST VALENTINO FUNDOPLICATION.
[2016-08-23 08:08] LABS: Glucose,Whole Blood 145 mg/dL (75-99)
[2016-08-23] MEDS ORDERED: SIMETHICONE 40 MG/0.6 ML DROPS 2,000 MG/30 ML BOTTLE PO SCH (08:30)
[2016-08-23] MEDS ORDERED: LISINOPRIL 20 MG TAB PO SCH (09:00)
[2016-08-23] MEDS ORDERED: ENOXAPARIN 40 MG/0.4 ML SYRINGE SQ SCH (09:00)
[2016-08-23] MEDS ORDERED: FUROSEMIDE 20 MG TAB PO SCH (09:00)
[2016-08-23 09:18] VITALS: BP 131/81; PULSE 86; RESP 20; TEMP 97.9
[2016-08-23 09:21] LABS: Anion Gap 10 mmol/L; Blood Urea Nitrogen 20 mg/dL (7-17); Carbon Dioxide 27 mmol/L (22-30); Chloride 103 mmol/L (98-107); Glucose 191 mg/dL (74-99); Magnesium 2.3 mg/dL (1.6-2.3); Non-African American GFR(MDRD) >60 (>60 ml/min/1.73 sqM); Phosphorous 4.6 mg/dL (2.5-4.5); Potassium 4.4 mmol/L (3.5-5.1); Sodium 140 mmol/L (137-145)
--- NOTE | 2016-08-23 10:59 | P.PN ---
Progress Note - Text Discussion with nursing reveals no problems with swallowing. Patient denies any significant pain. Esophogram is unremarkable. Patient may be discharged with medical reconcilliation and off omeprazole.
[2016-08-23 12:58] LABS: Glucose,Whole Blood 126 mg/dL (75-99)
[2016-08-23 21:20] LABS: Hemoglobin A1C 7.7 % (4.2-6.1)
--- NOTE | 2016-09-01 20:49 | P.OP ---
Date of Procedure: 08/22/16 Preoperative Diagnosis: Postoperative Diagnosis: Procedure(s) Performed: Implants: Indications for Procedure: Operative Findings: Description of Procedure: DESCRIPTION OF PROCEDURE(S): SURGEON: JORGE SMITH MD GAME MODERATOR: Elba Magana PREOPERATIVE DIAGNOSES: 1. Morbid obesity due to excess calories. 2. Body mass index of 44.6 3. Gastroesophageal reflux disease. 4. Paraesophageal hiatal hernia, midline. 5. Diabetes type 2 [id number]. 6. Hypertensive heart disease without cardiomyopathy. 7. Obstructive sleep apnea. 8. Previous history of multiple abdominal wall hernias. POSTOPERATIVE DIAGNOSES: 2. Body mass index of 44.6 3. Gastroesophageal reflux disease. 4. Paraesophageal hiatal hernia, midline, 7 cm. 5. Diabetes type 2 [id number]-lbabkkyat. 6. Hypertensive heart disease without cardiomyopathy. 7. Obstructive sleep apnea. 8. Previous history of multiple abdominal wall hernias. 9. Mediastinal mass. 10. Recurrent epigastric incisional ventral hernia with incarceration. OPERATION: 1. Robotic-assisted laparoscopic reduction and repair of incarcerated paraesophageal hiatal hernia with [place] Biopatch A 8 x 8 cm. 2. Resection of mediastinal mass, 5 cm x 9 cm. 3. Intraoperative esophagogastroduodenoscopy ANESTHESIA: General with local anesthetic. ESTIMATED BLOOD LOSS: 30 mL SPECIMENS REMOVED: Mediastinal mass with hernia sac. COMPLICATIONS: None. FINDINGS: 1. Thoracic length 17 cm. 2. Port placed 15 cm distal. 3. Incarcerated upper pole of the stomach within the mediastinum with moderate dissection performed with resection of mediastinal lipoma and sac. 4. 7 cm paraesophageal incarcerated diaphragmatic hiatal hernia with moderate dissection into the mediastinum. 5. Kinsman Biopatch A onlay mesh placed. 6. Closure of the hiatus consistent with 56-Ecuadorean bougie. 7. Recurrent incarcerated epigastric incisional ventral hernia. INDICATIONS: The patient is a 65-year-old female who presents with regurgitation, gastroesophageal reflux disease poorly controlled despite medications, and a symptomatic diaphragmatic hiatal hernia. Preoperative workup including upper endoscopy demonstrated a Hill grade 4 lower esophageal valve. She completed an esophageal manometry. Given the severity of her symptoms, particularly of her symptomatic diaphragmatic hiatal hernia, she had elected for surgical intervention. Benefits and risks including bleeding, infection, recurrence, dysphagia, injury to the lung, need for further surgery was described at length. Informed consent was obtained. DESCRIPTION: The patient was brought into the operating room and placed in supine position. Preoperatively she had received Lovenox subcutaneously for DVT prophylaxis. After general induction, the abdomen was prepped and draped in standard sterile fashion. The patient had previously voided prior to coming to the operating room. Ioban draping was placed along the abdomen. A timeout protocol was confirmed with the surgical team, for which the patient's name, procedure to be performed including DVT prophylaxis with bilateral SCDs, and preoperative antibiotics were also confirmed. A robotic da Eli Si system was prepped and primed. At 15 cm from the xiphoid to just below the umbilicus, proposed port sites were marked with indelible marker along the left axillary line, left mid-clavicular line with each ports were marked 10 cm from each other. A 5 mm 0 degrees laparoscopic trocar entry was performed along the left upper quadrant. The abdomen was insufflated to 15 mmHg pressure she tolerated well. Diagnostic laparoscopy demonstrated no injury to bowel, viscera, or mesentery. The liver surface was unremarkable. No injury had occurred to the small bowel or viscera. Along the hiatus, a defect was found anteriorly. Separately, a recurrent incisional hernia along the epigastrium was found also incarcerated. The fatty contents was reduced into the abdominal cavity with persistent external pressure. Bariatric extended length robotic ports were selected for the entire case. Next, one 8 mm robotic port was placed along the right upper abdomen. An 8-mm port was were placed along the left mid abdomen. The camera 12-mm port extended length was maintained along the epigastrium via the hernia defect. Another 8 mm port was placed along the left upper abdominal wall after exchanging the 5 mm port. Please note that the ports were placed at least 20 cm away from the target anatomy. Care was taken to check that each robotic arm were safely away from collision with the bed or the patient. At the epigastrium, a median sized Kaelyn liver retractor was placed under direct visualization with the Iron Office Inspector placed over the right shoulder of the patient. The additional third robotic arm was placed along the left aspect of the patient. The patient was repositioned in reverse Trendelenburg position after lowering the bed. The robot was docked above the head of the patient. Using a grasper for arm 3, a grasper for arm 2, including hook cautery for arm 1 , the robotic system was docked and primed as described. Instruments were interchanged by the automotive parts counter assistant . I had sat at the console. The gastrohepatic ligament was cleaved using a vessel sealer. Next, the phrenoesophageal ligament was mobilized and the distal esophagus was mobilized circumferentially without injury to the bilateral vagi nerves. The left and right crura was identified. A moderate sized midline large hiatal hernia and sac was found incarcerated into the mediastinum. Significant mobilization of the distal to mid esophagus into the mediastinum was performed without injury to the vagotomy nerves. Circumferentially, the hernia sac was excised and brought into the peritoneal cavity. Care was taken to avoid any gastrotomy to the incarcerated upper pole of the stomach. Extended dissection occurred for at least another 30 minutes. The measured defect was consistent with at least 7 cm. After extensive dissection, the distal esophagus at least 2 cm was brought into the abdominal cavity. A large mediastinal mass of 5 cm x 9 cm, which is also a lead point for the incarcerated paraesophageal hiatal hernia, was resected using a vessel sealer and placed into abdominal cavity for later extraction of the specimen using an Endo Catch bag. A 56-Ecuadorean bougie was carefully placed along the posterior oropharynx to the hiatus as a visual aid for hiatus closure and then removed. Once the hiatus and crura was dissected, 2-0 VLOC suture was placed initially with a [id number] suture to reapproximate the diaphragmatic hiatus posteriorly. Additional sutures using 2-0 Surgidac was used as a jkxodc-sg-hzjde as well as interrupted simple sutures to completely close the hiatus along the posterior aspect. To buttress the repair, a Kinsman Biopatch A was prepared along the back table and cut in a roldan-hole fashion as to reinforce the repair as an underlay. The mesh was placed along the crural repair and tagged using horizontal mattress sutures using 2-0 Surgidac. The robot was undocked from the patient. I went to the head of the bed to perform intraoperative esophagogastroduodenoscopy. An Olympus gastroscope was passed through posterior oropharynx, where the GE junction was found distal to the diaphragmatic hiatus. The intra-abdominal esophageal length obtained during the case was over 2 cm. The stomach was entered. Retroflexion of the scope confirmed a Hill grade 1 lower esophageal valve. The stomach had been desufflated. No evidence of leaks were found either of the mucosal defects of the esophagus or stomach. The hiatal closure was consistent with a 56 Ecu[place] bougie as a bougie was passed. This concluded the endoscopic portion of the case. I re-scrubbed into the case. All instruments and pneumoperitoneum were evacuated from the abdominal cavity. Incisions were reapproximated using 4-0 Monocryl in an interrupted subcuticular fashion. The 12-mm port site was oversewn using 0 Vicryl in a Irvin Huertas. Dermabond was applied to the skin. Local anesthetic was infiltrated in all wounds for postop analgesia. Multiple intra-abdominal films were obtained. At the end of the procedure, needle, sponge, and instrument count was verified correct by the surgical coder. The patient had tolerated the procedure well and was taken to the postanesthesia unit in stable condition. Intraoperative films were reviewed with the patient's family who was pleased with the level of care.
--- NOTE | 2016-09-01 20:57 | P.DS ---
Providers Date of admission: 08/22/16 13:30 Expected date of discharge: 08/23/16 Attending physician: Alexia Trujillo Primary care physician: Stated None - Discharge Diagnosis(es) (1) Paraesophageal hernia with obstruction but no gangrene Status: Acute (2) Reflux esophagitis Status: Acute (3) Recurrent incisional hernia Status: Acute (4) Morbid obesity due to excess calories Status: Acute (5) BMI 40.0-44.9, adult Status: Acute (6) Diabetes type 2, controlled Status: Acute (7) Sleep apnea Status: Acute (8) Hypertensive heart disease Status: Acute Hospital Course: COURSE: The patient is a 65-year-old female who presented with regurgitation, gastroesophageal reflux disease poorly controlled despite medications, and a symptomatic diaphragmatic hiatal hernia. Preoperative workup including upper endoscopy demonstrated a Hill grade 4 lower esophageal valve. She completed an esophageal manometry. Given the severity of her symptoms, particularly of her symptomatic diaphragmatic hiatal hernia, she had elected for surgical intervention. She had a laparoscopic paraesophageal hiatal hernia repair with mesh including resection of mediastinal mass. Post procedure, she was tolerating liquids. Pertinent Studies: Esophagram demonstrating no extravasation or severe obstruction. Procedures: POSTOPERATIVE DIAGNOSES: 2. Body mass index of 44.6 3. Gastroesophageal reflux disease. 4. Paraesophageal hiatal hernia, midline, 7 cm. 5. Diabetes type 2 [id number]-iiquxnuer. 6. Hypertensive heart disease without cardiomyopathy. 7. Obstructive sleep apnea. 8. Previous history of multiple abdominal wall hernias. 9. Mediastinal mass. 10. Recurrent epigastric incisional ventral hernia with incarceration. OPERATION: 1. Robotic-assisted laparoscopic reduction and repair of incarcerated paraesophageal hiatal hernia with [place] Biopatch A 8 x 8 cm. 2. Resection of mediastinal mass, 5 cm x 9 cm. 3. Intraoperative esophagogastroduodenoscopy Patient Condition at Discharge: Good Plan - Discharge Summary New Discharge Prescriptions: New Hyoscyamine Oral Drops [Levsin Drops] 0.25 mg PO Q4HR bottle Simethicone 40 mg/0.6 ml Drops [Mylicon Drops] 80 mg PO PCHS bottle Continue Nystatin 100,000 Unit/gm Powd [Mycostatin Powder] 1 applic TOPICAL BID #60 powder Benazepril HCl 40 mg PO QAM Furosemide [Lasix] 20 mg PO QAM Levothyroxine Sodium [Synthroid] 50 mcg PO DAILY #60 tab metFORMIN HCL [Glucophage] 500 mg PO BID #60 tab Ergocalciferol [Vitamin D2 (DRISDOL)] 50,000 unit PO MO Pramipexole Di-HCl [Mirapex] 3 mg PO HS Discontinued Ferrous Sulfate [Feosol] 325 mg PO TID #90 tab Omeprazole 40 mg PO DAILY #90 capsule.dr Discharge Medication List Nystatin 100,000 Unit/gm Powd [Mycostatin Powder] 1 applic TOPICAL BID #60 powder 03/13/16 [Rx] Benazepril HCl 40 mg PO QAM 03/31/16 [History] Furosemide [Lasix] 20 mg PO QAM 03/31/16 [History] Levothyroxine Sodium [Synthroid] 50 mcg PO DAILY #60 tab 05/14/16 [Rx] metFORMIN HCL [Glucophage] 500 mg PO BID #60 tab 05/14/16 [Rx] Ergocalciferol [Vitamin D2 (DRISDOL)] 50,000 unit PO MO 08/19/16 [History] Pramipexole Di-HCl [Mirapex] 3 mg PO HS 08/22/16 [History] Hyoscyamine Oral Drops [Levsin Drops] 0.25 mg PO Q4HR bottle 08/23/16 [Rx] Simethicone 40 mg/0.6 ml Drops [Mylicon Drops] 80 mg PO PCHS bottle 08/23/16 [ Rx] Follow up Appointment(s)/Referral(s): Alexia Trujillo MD [STAFF PHYSICIAN] - 08/25/16 4:00 pm (Bariatric center) Patient Instructions/Handouts: Laparoscopic Hiatal Hernia Repair (DC) Activity/Diet/Wound Care/Special Instructions: Stay on Elliot diet. Liquid diet only. Activity as tolerated. No lifting over 4 pounds Shower, no baths, pools, hot tubs until Ok by physician. Call Dr if you have a fever over 101, inability to keep food down, redness, swelling or drainage around incisions or with any other questions or concerns. Discharge Disposition: HOME SELF-CARE
== END 2016-08-23 13:10 | disposition home or self-care (01) | DRG 327 ==
LOC: 2ORWHC 08-22 13:30 → 6PED 08-22 22:47
PROVIDERS: ADMIT Surgery Plastic and Reconstructive Surgery; ATTEND Surgery Plastic and Reconstructive Surgery
PROC: 0BUR4JZ (ICD-10-PCS; 2016-08-22)
PROC: 0WBC4ZZ Excision of Mediastinum, Percutaneous Endoscopic Approach (ICD-10-PCS; 2016-08-22)
PROC: 8E0W4CZ Robotic Assisted Procedure of Trunk Region, Percutaneous Endoscopic Approach (ICD-10-PCS; 2016-08-22)
PROC: 0DJ08ZZ Inspection of Upper Intestinal Tract, Via Natural or Artificial Opening Endoscopic (ICD-10-PCS; 2016-08-22)
PROC: 0BUS4JZ (ICD-10-PCS; principal; 2016-08-22 14:40)
DX: K44.0 Diaphragmatic hernia with obstruction, without gangrene (principal); Z68.41 Body mass index [BMI] 40.0-44.9, adult; E66.01 Morbid (severe) obesity due to excess calories; I11.9 Hypertensive heart disease without heart failure; R16.0 Hepatomegaly, not elsewhere classified; K43.0 Incisional hernia with obstruction, without gangrene; D17.4 Benign lipomatous neoplasm of intrathoracic organs; E11.9 Type 2 diabetes mellitus without complications; K21.0 Gastro-esophageal reflux disease with esophagitis; M19.90 Unspecified osteoarthritis, unspecified site; E07.9 Disorder of thyroid, unspecified; G47.33 Obstructive sleep apnea (adult) (pediatric); G25.81 Restless legs syndrome; Z96.651 Presence of right artificial knee joint; Z79.84 Long term (current) use of oral hypoglycemic drugs; Z79.899 Other long term (current) drug therapy; Z98.1 Arthrodesis status; Z90.49 Acquired absence of other specified parts of digestive tract; Z82.49 Family history of ischemic heart disease and other diseases of the circulatory system; Z87.891 Personal history of nicotine dependence; Z71.3 Dietary counseling and surveillance; Z80.1 Family history of malignant neoplasm of trachea, bronchus and lung
CPT/HCPCS: 74210; 80048; 83036; 83735; 84100; 88305

== ENCOUNTER → 2016-08-25 | Outpatient (CLI) | payer OTHER ==
[2016-08-25 17:06] VITALS: BP 152/75; PULSE 104; RESP 16; TEMP 98.3; BMI 47.2
--- NOTE | 2016-09-03 20:58 | P.PN ---
Progress Note - Text DATE OF SERVICE: 08/25/2016. CHIEF COMPLAINT: Bariatric assessment. HISTORY OF PRESENT ILLNESS: Yamileth Jimenez is a 65-year-old female who initially presented to the bariatric program in March 2016. At her 5 feet 5-1/2 inches, her ideal body weight is 149 pounds. Her highest weight was 289 pounds. Today she comes in weighing 288 pounds. Body mass index is 47.3. She is 139 pounds overweight. She is status post robotic-assisted hiatal hernia repair 08/22/2016. No reports of dysphagia. No reports of abdominal pain. PHYSICAL EXAM: VITAL SIGNS: 5 feet 5-1/2 inches, 288 pounds. Body mass index 47.3. Vital Signs Temp 98.3 F 08/25/16 16:59 Pulse 104 H 08/25/16 16:59 Resp 16 08/25/16 16:59 BP 152/75 08/25/16 16:59 Pulse Ox GENERAL: Well-developed female in no acute distress. HEENT: No sclerae icterus. Extraocular movements grossly intact. Moist buccal mucosa. NECK: Supple without lymphadenopathy. CHEST: Non-labored respirations with equal bilateral excursions. CARDIOVASCULAR: Tachycardic. 2+ palpable pulses. ABDOMEN: Protuberant, soft, nondistended. Laparoscopic sites clean dry and intact. No signs of infection. MUSCULOSKELETAL: No clubbing, cyanosis or edema. NEURO: No focal or lateralizing signs. Cranial nerves 2 through 12 grossly within normal limits. PSYCH: Appropriate affect. Alert and oriented to person, place and time. ASSESSMENT: 1. Morbid obesity due to excess calories. 2. Body mass index reduced from 47.5 down to 47.2. 3. Gastroesophageal reflux disease. 4. Status post hiatal hernia repair. PLAN: 1. Recommend post-Elliot diet including high protein shakes 2 weeks. 2. Strict no lifting over 4 pounds in 4 weeks. 3. In the interim, continue evaluation for the bariatric program.
== END | disposition home or self-care (01) ==
LOC: BARWHC3 15:53
PROVIDERS: ATTEND Surgery Plastic and Reconstructive Surgery
DX: Z48.815 Encounter for surgical aftercare following surgery on the digestive system (principal); E66.01 Morbid (severe) obesity due to excess calories; K21.9 Gastro-esophageal reflux disease without esophagitis; Z68.42 Body mass index [BMI] 45.0-49.9, adult; Z98.890 Other specified postprocedural states; Z98.84 Bariatric surgery status
CPT/HCPCS: 99211

== ENCOUNTER → 2016-10-13 | Outpatient (CLI) | payer OTHER ==
[2016-10-13 13:08] VITALS: BMI 46.5
== END | disposition home or self-care (01) ==
LOC: BARWHC3 08:56
PROVIDERS: ATTEND Surgery Plastic and Reconstructive Surgery
DX: Z71.3 Dietary counseling and surveillance (principal)
CPT/HCPCS: 97804

== ENCOUNTER → 2016-10-22 | Outpatient (CLI) | payer OTHER ==
[2016-10-22 13:53] VITALS: BP 146/78; PULSE 97; RESP 16; TEMP 98.5; BMI 45.4
[2016-10-22 15:44] LABS: Anisocytosis Slight; CH 25.4; CHCM 31.4; HCT 45.2 % (34.0-46.0); HGB 13.7 gm/dL (11.4-16.0); Hypochromasia Slight; MCH 24.6 pg (25.0-35.0); MCHC 30.3 g/dL (31.0-37.0); MCV 81.3 fL (80.0-100.0); Mean Platelet Volume 7.7; RBC 5.56 m/uL (3.80-5.40); RDW 18.3 % (11.5-15.5); WBC 7.9 k/uL (3.8-10.6)
[2016-10-22 15:52] LABS: Partial Thromboplastin Time 25.2 sec (22.0-30.0); Prothrombin Time 9.9 sec (9.0-12.0)
[2016-10-22 17:31] LABS: ALT 43 U/L (9-52); AST 25 U/L (14-36); Alkaline Phosphatase 95 U/L (38-126); Anion Gap 10 mmol/L; Blood Urea Nitrogen 17 mg/dL (7-17); Calcium 9.7 mg/dL (8.4-10.2); Carbon Dioxide 28 mmol/L (22-30); Chloride 102 mmol/L (98-107); Cholesterol 206 mg/dL (<200); Glucose 117 mg/dL (74-99); HDL Cholesterol 44 mg/dL (40-60); Iron 74 ug/dL (37-170); Magnesium 2.2 mg/dL (1.6-2.3); Non-African American GFR(MDRD) >60 (>60 ml/min/1.73 sqM); Phosphorus 4.7 mg/dL (2.5-4.5); Potassium 4.9 mmol/L (3.5-5.1); Sodium 140 mmol/L (137-145); Total Bilirubin 0.3 mg/dL (0.2-1.3); Total Protein 7.2 g/dL (6.3-8.2)
[2016-10-22 17:41] LABS: % Iron Saturation 16.8 % (20-50); Total Iron Binding Capacity 440 ug/dL (265-497)
[2016-10-22 18:14] LABS: Hemoglobin A1C 7.5 % (4.2-6.1)
[2016-10-22 18:36] LABS: Vitamin B12 864 pg/mL (239-931)
[2016-10-25 21:00] LABS: Selenium 154 mcg/L (63-160)
--- NOTE | 2016-11-29 05:11 | P.PN ---
Progress Note - Text DATE OF SERVICE: 10/22/2016. CHIEF COMPLAINT: Bariatric assessment. HISTORY OF PRESENT ILLNESS: Yamileth Jimenez is a 65-year-old female who initially presented to the bariatric program in March 2016. At her 5 feet 5-1/2 inches, her ideal body weight is 149 pounds. Her highest weight was 289 pounds. Today she comes in weighing 277 pounds. Body mass index is down from 47.5 down to 45.4. She has lost 12 pounds. She is 128 pounds overweight. Her esophageal reflux is resolved since her hiatal hernia repair. She denies any gas bloat. She does report intermittent nausea. She has developed osteoarthritis of the lower joints, non-insulin dependent diabetes, including hypertension and obstructive sleep apnea as a result of her obesity. She comes in for evaluation for gastric bypass. PAST MEDICAL HISTORY: 1. Gastroesophageal reflux disease. 2. Morbid obesity. 3. Osteoarthritis of the lower back. 4. Osteoarthritis of bilateral knees. 5. Osteoporosis of the ankles. 6. Hypertension. 7. Panniculitis. 8. Diabetes type 2, non insulin-dependent. 9. Hypothyroidism. 10. Vitamin D deficiency. PAST SURGICAL HISTORY: 1. Cholecystectomy. 2. Multiple bladder suspension surgeries. 3. Bilateral inguinal hernias. 4. Pinnings along the fingers. 5. Umbilical hernia repair. 6. Right total knee replacement x2. 7. Left foot surgery. 8. Tonsillectomy. 10. Upper endoscopy. 11. Robotic-assisted hiatal hernia repair, 07/2016. MEDICATIONS: 1. Mirapex. 2. Lasix. 3. Benazepril/hydrochlorothiazide. 4. Glucophage. 5. Synthroid. 6. Vitamin D. ALLERGIES: DENIES. SOCIAL HISTORY: Denies any active tobacco use, however, she is a former tobacco user. FAMILY HISTORY: Pertinent for morbid obesity, hypertension, diabetes that run in her family. REVIEW OF SYSTEMS: CONSTITUTIONAL: At her 5 feet 5-1/2 inches, her ideal body weight is 149 pounds. Her highest weight was 289 pounds. Today she comes in weighing 277 pounds. Body mass index is down from 47.5 down to 45.4. She has lost 12 pounds. She is 128 pounds overweight. HEENT: Denies any troubles with vision or hearing. No reports of dysphagia. ENDOCRINE: Denies any active problems with diabetes or thyroid disorder. CARDIOVASCULAR: She has hypertension, for which she is on at least 2 different medications. She also had a previous cardiac catheterization performed in January of 2014 with findings of no evidence of pulmonary hypertension. Mild left ventricular hypertrophy was also identified. GASTROINTESTINAL: History of gastroesophageal reflux disease over 10 years. She reports intolerance to Nexium. She is off all antacids since her hiatal hernia repair. Reflux disease is resolved. MUSCULOSKELETAL: Has osteoarthritis of the bilateral hands, lower back, bilateral knees. NEURO: No reports of stroke or seizure disorder. PSYCH: No reports of depression or suicidal ideation. HEMATOLOGIC: Denies any easy bruising or bleeding. SKIN: No skin cancer. No recent rash. PHYSICAL EXAM: VITAL SIGNS: 5 feet 5-1/2 inches, 277 pounds. Body mass index 45.4. Vital Signs Temp 98.5 F 10/22/16 13:51 Pulse 97 10/22/16 13:51 Resp 16 10/22/16 13:51 BP 146/78 10/22/16 13:51 Pulse Ox GENERAL: Well-developed female in no acute distress. HEENT: No sclerae icterus. Extraocular movements grossly intact. Moist buccal mucosa. NECK: Supple without lymphadenopathy. CHEST: Non-labored respirations with equal bilateral excursions. CARDIOVASCULAR: Regular rate. Regular rhythm.. 2+ palpable pulses. ABDOMEN: Protuberant, soft, nondistended. MUSCULOSKELETAL: No clubbing, cyanosis or edema. NEURO: No focal or lateralizing signs. Cranial nerves 2 through 12 grossly within normal limits. PSYCH: Appropriate affect. Alert and oriented to person, place and time. SKIN: Good skin turgor. Well perfused. ASSESSMENT: 1. Morbid obesity due to excess calories. 2. Body mass index reduced from 47.5 down to 45.4. 3. Family history of morbid obesity. 4. Osteoarthritis of bilateral knees. 5. Osteoarthritis of bilateral ankles. 6. 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 7. Gastroesophageal reflux disease, resolved. 8. Hypothyroidism. 9. Chronic panniculitis. 10. Hypertensive heart disease. 11. Iron deficiency anemia. 12. Diabetes, type 2; new diagnosis. 13. Obstructive sleep apnea. 14. Hypercholesterolemia. 15. Vitamin D deficiency. 16. Restless leg syndrome. PLAN: 1. Bariatric options between a sleeve and a Gabi-en-Y gastric bypass were reviewed in detail. She elected for a Gabi-en-Y gastric bypass. 2. The [place] [facility] Data was also reviewed with benefits and risks as described. 3. An 8 page second-generation bariatric consent form was reviewed in detail including potential of bleeding, infection, leaks, adequate weight loss, nutritional deficiencies which she demonstrated understanding of the risks. 4. Recommend 2 week high-protein low caloric 800 kcal diet to address hepatomegaly. 5. Preoperative labs including compress metabolic panel and CBC with type and screen. 6. DVT prophylaxis per [place] [facility]. 7. Antibiotic prophylaxis. 8. Inpatient hospitalization anticipated for more than 2 nights. 9. All questions and concerns were addressed with the patient. 10. Recommend diet classes. 11. She is completing assessment and treatment for obstructive sleep apnea.
== END | disposition home or self-care (01) ==
LOC: BARWHC3 13:39
PROVIDERS: ATTEND Surgery Plastic and Reconstructive Surgery
DX: Z48.815 Encounter for surgical aftercare following surgery on the digestive system (principal); E66.01 Morbid (severe) obesity due to excess calories; Z68.42 Body mass index [BMI] 45.0-49.9, adult; M17.0 Bilateral primary osteoarthritis of knee; M19.071 Primary osteoarthritis, right ankle and foot; M19.072 Primary osteoarthritis, left ankle and foot; M47.816 Spondylosis without myelopathy or radiculopathy, lumbar region; E03.9 Hypothyroidism, unspecified; M79.3 Panniculitis, unspecified; I11.9 Hypertensive heart disease without heart failure; E11.9 Type 2 diabetes mellitus without complications; G47.33 Obstructive sleep apnea (adult) (pediatric); E78.00 Pure hypercholesterolemia, unspecified; G25.81 Restless legs syndrome; E55.9 Vitamin D deficiency, unspecified; Z79.899 Other long term (current) drug therapy; Z98.84 Bariatric surgery status; Z01.812 Encounter for preprocedural laboratory examination; E21.1 Secondary hyperparathyroidism, not elsewhere classified; E89.1 Postprocedural hypoinsulinemia; K90.89 Other intestinal malabsorption; K76.9 Liver disease, unspecified; N19 Unspecified kidney failure; K50.90 Crohn's disease, unspecified, without complications; D50.8 Other iron deficiency anemias
CPT/HCPCS: 36415; 80053; 80061; 82306; 82525; 82607; 82728; 82746; 83036; 83540; 83550; 83735; 83970; 84100; 84134; 84255; 84425; 84443; 84590; 84630; 85027; 85610; 85730; 99211

== ENCOUNTER → 2016-11-06 | Outpatient (CLI) | payer OTHER ==
--- NOTE | 2016-11-07 06:18 | PN ---
PROGRESS NOTE DATE OF SERVICE: 11/06/2016 A 65-year-old lady has been followed in sleep center for treatment of obstructive sleep apnea-hypopnea syndrome. Recently, patient had polysomnogram and CPAP titration and I discussed the results of sleep studies with patient in detail. She has extremely severe sleep apnea with apnea- hypopnea index 100.1. She was started on treatment with CPAP with recommended pressure of 15 cm of water. I checked her CPAP unit. Average usage is 4.4 hours. Usage 24 out of 30 nights and 11 out of 30 nights for more than 4 hours. Pressure is 15 cm of water and the patient sometimes feels the pressure is too much for her. She wakes up in the middle of the night and has to restart treatment with CPAP again to make the pressure less. Leak is quite high 41 L/minute, although she is using a small AirFit P10 nasal pillows. Apnea-hypopnea index reading for the last month from the machine is only 1.8, which is totally normal range. [place] Sleepiness Scale today is 10. MEDICATIONS: Metformin, meloxicam, vitamin D, furosemide, iron supplement, thyroid supplement, omeprazole, pramipexole, Zyrtec. PHYSICAL EXAMINATION: During physical exam, a 65-year-old lady without distress. VITAL SIGNS: BP 162/83, HR 95, RR 16, height 5 feet and 6 inches, weight 285.6, BMI 45.5, oxygen saturation on room air 95%, temperature 98.3. HEENT: PERRLA, EOMI. Oropharynx extremely low position of soft palate. Neck Supple, no JVD. Thyroid is not palpable. LUNGS Clear to percussion and to auscultation. Good air exchange. No wheezing or rhonchi. HEART S1, S2 regular. No murmurs, gallops, or rubs. ABDOMEN Obese. EXTREMITIES No clubbing or cyanosis. COGNOS Awake, alert, and oriented X3. Cranial nerves 2 to 7 intact. There is no fasciculation or atrophy. noted. No focal deficits observed. IMPRESSION: 1. Extremely severe obstructive sleep apnea-hypopnea syndrome, apnea-hypopnea index 100.1, on control with CPAP at 15 cm of water. Patient had difficulties with the usage of equipment in the first night when she started to use CPAP, but for the last 2 weeks she improved her compliance with treatment benefiting from CPAP. 2. Obesity. 3. Hypothyroidism. 4. Diabetes mellitus. 5. Acid reflux. 6. Polyarthritis. 7. Allergy. 8. Hiatal hernia. 9. Status post right knee replacement. 10.History of iron deficiency anemia. 11.History of restless leg syndrome. PLAN: 1. I decreased the pressure to 13 cm of water. 2. Aggressive losing weight. 3. Sleep hygiene with regular time in bed for at least 8 hours. 4. No driving if feeling any sleepiness. 5. Prescription for chin strap. Thank you very much for letting me participate in the management of your patient. Sincerely, Easton Haynes MD, PhD, FAASM Diplomat of [employer] Director of [facility] [place] MMODL / KIKE: [id number] /
== END | disposition home or self-care (01) ==
LOC: SLEEP 15:59
PROVIDERS: ATTEND Internal Medicine
DX: G47.33 Obstructive sleep apnea (adult) (pediatric) (principal); E66.9 Obesity, unspecified; E03.9 Hypothyroidism, unspecified; E11.9 Type 2 diabetes mellitus without complications; K21.9 Gastro-esophageal reflux disease without esophagitis; M13.0 Polyarthritis, unspecified; K44.9 Diaphragmatic hernia without obstruction or gangrene; T78.40XA Allergy, unspecified, initial encounter; Z96.651 Presence of right artificial knee joint; Z86.2 Personal history of diseases of the blood and blood-forming organs and certain disorders involving the immune mechanism; Z87.39 Personal history of other diseases of the musculoskeletal system and connective tissue; Z79.1 Long term (current) use of non-steroidal anti-inflammatories (NSAID); Z79.899 Other long term (current) drug therapy

== ENCOUNTER → 2017-02-11 | Outpatient (CLI) | payer OTHER ==
[2017-02-11 14:59] VITALS: BP 134/90; PULSE 98; TEMP 97; BMI 43.7
[2017-02-11 15:41] LABS: HCT 45.9 % (34.0-46.0); MCH 25.8 pg (25.0-35.0); MCHC 30.5 g/dL (31.0-37.0); MCV 84.4 fL (80.0-100.0); Mean Platelet Volume 8.1; Platelet Count 259 k/uL (150-450); RBC 5.44 m/uL (3.80-5.40); RDW 15.7 % (11.5-15.5); WBC 8.4 k/uL (3.8-10.6)
[2017-02-11 15:52] LABS: ALT 44 U/L (9-52); AST 19 U/L (14-36); Albumin 3.9 g/dL (3.5-5.0); Alkaline Phosphatase 90 U/L (38-126); Anion Gap 10 mmol/L; Blood Urea Nitrogen 17 mg/dL (7-17); Calcium 9.7 mg/dL (8.4-10.2); Carbon Dioxide 31 mmol/L (22-30); Chloride 102 mmol/L (98-107); Cholesterol 201 mg/dL (<200); Glucose 131 mg/dL (74-99); HDL Cholesterol 46 mg/dL (40-60); LDL Cholesterol,Calculated 126 mg/dL (0-99); Magnesium 2.1 mg/dL (1.6-2.3); Phosphorus 4.1 mg/dL (2.5-4.5); Potassium 4.2 mmol/L (3.5-5.1); Sodium 143 mmol/L (137-145); Total Bilirubin 0.3 mg/dL (0.2-1.3); Total Protein 6.8 g/dL (6.3-8.2); Triglycerides 146 mg/dL (<150)
[2017-02-11 15:56] LABS: Partial Thromboplastin Time 23.1 sec (22.0-30.0); Prothrombin Time 9.7 sec (9.0-12.0)
[2017-02-11 20:20] LABS: Iron Saturation 22.52 (12.00-45.00)
[2017-02-11 20:29] LABS: Vitamin D 25 Hydroxy 25.8 ng/mL (30.0-100.0)
[2017-02-11 20:38] LABS: Folate, Serum >24.0 ng/mL
[2017-02-11 23:48] LABS: Hemoglobin A1C 7.3 % (4.0-6.0)
[2017-02-12 15:47] LABS: Zinc, Serum 72 ug/dL (60-130)
[2017-02-13 09:02] LABS: Vitamin B1 70 ug/L (38-122)
[2017-02-13 09:25] LABS: Vitamin A 48 ug/dL (38-106)
[2017-02-14 18:38] LABS: Selenium 149 mcg/L (63-160)
--- NOTE | 2017-03-30 21:33 | P.PN ---
Subjective Progress Note Date: 02/11/17 DATE OF SERVICE: 02/11/2017. CHIEF COMPLAINT: Bariatric assessment. HISTORY OF PRESENT ILLNESS: Yamileth Jimenez is a 66-year-old female who initially presented to the bariatric program in March 2016. At her 5 feet 5-1/2 inches, her ideal body weight is 149 pounds. Her highest weight was 289 pounds. Today she comes in weighing 266 pounds. She has lost 10 pounds in 3 months. Body mass index is down from 47.5 down to 43.8. She is 117 pounds overweight. She had a robotic-assisted hiatal hernia repair. Initially she had complete resolution of her gastroesophageal reflux disease however symptoms came back 1 month postprocedure. Now she comes in for evaluation for bariatric options. As result of her severe gastroesophageal reflux disease, she is looking toward gastric bypass. PAST MEDICAL HISTORY: 1. Gastroesophageal reflux disease. 2. Morbid obesity. 3. Osteoarthritis of the lower back. 4. Osteoarthritis of bilateral knees. 5. Osteoporosis of the ankles. 6. Hypertension. 7. Panniculitis. 8. Obstructive sleep apnea. PAST SURGICAL HISTORY: 1. Cholecystectomy. 2. Multiple bladder suspension surgeries. 3. Bilateral inguinal hernias. 4. Pinnings along the fingers. 5. Umbilical hernia repair. 6. Right total knee replacement x2. 7. Left foot surgery. 8. Tonsillectomy. 10. Upper endoscopy. 11. Robotic-assisted hiatal hernia repair July 2016. MEDICATIONS: 1. Mirapex. 2. Prilosec. 3. Meloxicam. 4. Lasix. 5. Benazepril/hydrochlorothiazide. ALLERGIES: DENIES. SOCIAL HISTORY: Denies any active tobacco use, however, she is a former tobacco user. FAMILY HISTORY: Pertinent for morbid obesity, hypertension, diabetes that run in her family. REVIEW OF SYSTEMS: CONSTITUTIONAL: At her 5 feet 5-1/2 inches, her ideal body weight is 149 pounds. Her highest weight was 289 pounds. Today she comes in weighing 266 pounds. She has lost 10 pounds in 3 months. Body mass index is down from 47.5 down to 43.8. She is 117 pounds overweight. HEENT: Denies any troubles with vision or hearing. No reports of dysphagia. ENDOCRINE: Has thyroid disorder. Has diabetes. CARDIOVASCULAR: She has hypertension, for which she is on at least 2 different medications. She also had a previous cardiac catheterization performed in January of 2014 with findings of no evidence of pulmonary hypertension. Mild left ventricular hypertrophy was also identified. RESPIRATORY: Has obstructive sleep apnea. No recent pneumonias. GASTROINTESTINAL: History of gastroesophageal reflux disease recurrent despite hiatal hernia repair. MUSCULOSKELETAL: Has osteoarthritis of the bilateral hands, lower back, bilateral knees. NEURO: No reports of stroke or seizure disorder. PSYCH: No reports of depression or suicidal ideation. HEMATOLOGIC: Denies any easy bruising or bleeding. PHYSICAL EXAM: VITAL SIGNS: 5 feet 5-1/2 inches, 289 pounds. Body mass index 43.8. Vital Signs Temp 97.0 F L 02/11/17 14:57 Pulse 98 02/11/17 14:57 Resp BP 134/90 02/11/17 14:57 Pulse Ox GENERAL: Well-developed female in no acute distress. HEENT: No sclerae icterus. Extraocular movements grossly intact. Moist buccal mucosa. NECK: Supple without lymphadenopathy. CHEST: Non-labored respirations with equal bilateral excursions. CARDIOVASCULAR: Regular rate. Regular rhythm. 2+ palpable pulses. ABDOMEN: Protuberant, soft, nondistended. MUSCULOSKELETAL: No clubbing, cyanosis or edema. NEURO: No focal or lateralizing signs. Cranial nerves 2 through 12 grossly within normal limits. PSYCH: Appropriate affect. Alert and oriented to person, place and time. SKIN: Has panniculitis. Well-perfused. Good skin turgor. LABS: Laboratory Last Values WBC 8.4 k/uL (3.8-10.6) 02/11/17 15:23 RBC 5.44 m/uL (3.80-5.40) H 02/11/17 15:23 Hgb 14.0 gm/dL (11.4-16.0) 02/11/17 15:23 Hct 45.9 % (34.0-46.0) 02/11/17 15:23 MCV 84.4 fL (80.0-100.0) 02/11/17 15:23 MCH 25.8 pg (25.0-35.0) 02/11/17 15:23 MCHC 30.5 g/dL (31.0-37.0) L 02/11/17 15:23 RDW 15.7 % (11.5-15.5) H 02/11/17 15:23 Plt Count 259 k/uL (150-450) 02/11/17 15:23 Hypochromasia Cancelled 02/11/17 15:23 Hyperchromasia Cancelled 02/11/17 15:23 Poikilocytosis Cancelled 02/11/17 15:23 Anisocytosis Cancelled 02/11/17 15:23 Microcytosis Cancelled 02/11/17 15:23 Macrocytosis Cancelled 02/11/17 15:23 PT 9.7 sec (9.0-12.0) 02/11/17 15: INR 1.0 (<1.2) 02/11/17 15: APTT 23.1 sec (22.0-30.0) 02/11/17 15:23 Sodium 143 mmol/L (137-145) 02/11/17 15: Potassium 4.2 mmol/L (3.5-5.1) 02/11/17 15: Chloride 102 mmol/L (98-107) 02/11/17 15:23 Carbon Dioxide 31 mmol/L (22-30) H 02/11/17 15:23 Anion Gap 10 mmol/L 02/11/17 15:23 BUN 17 mg/dL (7-17) 02/11/17 15: Creatinine 0.70 mg/dL (0.52-1.04) 02/11/17 15:23 Est GFR (MDRD) Af Amer >60 (>60 ml/min/1.73 sqM) 02/11/17 15:23 Est GFR (MDRD) Non-Af >60 (>60 ml/min/1.73 sqM) 02/11/17 15:23 Glucose 131 mg/dL (74-99) H 02/11/17 15:[address] Glu mg/dL 163 02/11/17 15:23 Hemoglobin A1c 7.3 % (4.0-6.0) H 02/11/17 15:23 Calcium 9.7 mg/dL (8.4-10.2) 02/11/17 15:23 Phosphorus 4.1 mg/dL (2.5-4.5) 02/11/17 15:23 Magnesium 2.1 mg/dL (1.6-2.3) 02/11/17 15:23 Iron 93 ug/dL (50-170) 02/11/17 15:23 TIBC 413 ug/dL (228-460) 02/11/17 15:23 Iron Saturation 22.52 (12.00-45.00) 02/11/17 15:23 Ferritin 21.4 ng/mL (10.0-291.0) 02/11/17 15:23 Total Bilirubin 0.3 mg/dL (0.2-1.3) 02/11/17 15:23 AST 19 U/L (14-36) 02/11/17 15:23 ALT 44 U/L (9-52) 02/11/17 15:23 Alkaline Phosphatase 90 U/L (38-126) 02/11/17 15: Total Protein 6.8 g/dL (6.3-8.2) 02/11/17 15: Albumin 3.9 g/dL (3.5-5.0) 02/11/17 15: Prealbumin 28.0 mg/dL (18.0-42.0) 02/11/17 15:23 Triglycerides 146 mg/dL (<150) 02/11/17 15:23 Cholesterol 201 mg/dL (<200) H 02/11/17 15:23 LDL Cholesterol, Calc 126 mg/dL (0-99) H 02/11/17 15: HDL Cholesterol 46 mg/dL (40-60) 02/11/17 15:23 Vitamin A 48 ug/dL (38-106) 02/11/17 15: Vitamin B1 70 ug/L (38-122) 02/11/17 15: Vitamin B12 1060.0 pg/mL (200.0-944.0) H 02/11/17 15:23 Vitamin D 25-Hydroxy 25.8 ng/mL (30.0-100.0) L 02/11/17 15:23 Folate >24.0 ng/mL 02/11/17 15:23 TSH 2.610 mIU/L (0.465-4.680) 02/11/17 15:23 PTH Intact 52.0 pg/mL (14.0-72.0) 02/11/17 15: Copper 1314 ug/L (810-1990) 02/11/17 15:23 Selenium 149 mcg/L (63-160) 02/11/17 15:23 Zinc 72 ug/dL (60-130) 02/11/17 15:23 ASSESSMENT: 1. Morbid obesity due to excess calories. 2. Body mass index reduced from 47.5 down to 43.8. 3. Family history of morbid obesity. 4. Osteoarthritis of bilateral knees. 5. Osteoarthritis of bilateral ankles. 6. 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 7. Gastroesophageal reflux disease. 8. Chronic panniculitis. 9. Hypertensive heart disease. 10. Iron deficiency anemia. 11. Diabetes, type 2. 12. Obstructive sleep apnea. 13. Hypercholesterolemia. 14. Vitamin D deficiency. 15. Hypothyroidism. 16. Restless leg syndrome. 17. Panniculitis. PLAN: 1. The benefits and risk of surgical intervention were described. An 8 page bariatric consent form was reviewed in detail. Per patient request, she seeks surgical intervention in May or June 2017. 2. She has completed her bariatric panel. Recommend correction of vitamin deficiencies. 3. Will need 2 week high-protein low caloric diet. 4. Inpatient hospitalization over 2 nights advised. 5. DVT prophylaxis. 6. Antibiotic prophylaxis. Objective - Vital Signs Vital signs: Vital Signs Temp 97.0 F L 02/11/17 14:57 Pulse 98 02/11/17 14:57 Resp BP 134/90 02/11/17 14:57 Pulse Ox Intake & Output 02/10/17 02/11/17 02/11/17 18:59 06:59 18:59 Weight 121.109 kg - Labs CBC & Chem 7: 02/11/17 15:23 02/11/17 15:23
== END | disposition home or self-care (01) ==
LOC: BARWHC3 14:57
PROVIDERS: ATTEND Surgery Plastic and Reconstructive Surgery
DX: Z48.815 Encounter for surgical aftercare following surgery on the digestive system (principal); E66.01 Morbid (severe) obesity due to excess calories; M17.0 Bilateral primary osteoarthritis of knee; M19.071 Primary osteoarthritis, right ankle and foot; M19.072 Primary osteoarthritis, left ankle and foot; M47.816 Spondylosis without myelopathy or radiculopathy, lumbar region; K21.9 Gastro-esophageal reflux disease without esophagitis; M79.3 Panniculitis, unspecified; I11.9 Hypertensive heart disease without heart failure; D50.9 Iron deficiency anemia, unspecified; E11.9 Type 2 diabetes mellitus without complications; G47.33 Obstructive sleep apnea (adult) (pediatric); E78.00 Pure hypercholesterolemia, unspecified; E55.9 Vitamin D deficiency, unspecified; E03.9 Hypothyroidism, unspecified; G25.81 Restless legs syndrome; E21.1 Secondary hyperparathyroidism, not elsewhere classified; E89.1 Postprocedural hypoinsulinemia; K90.9 Intestinal malabsorption, unspecified; K76.9 Liver disease, unspecified; N19 Unspecified kidney failure; K50.90 Crohn's disease, unspecified, without complications; Z68.41 Body mass index [BMI] 40.0-44.9, adult; Z90.49 Acquired absence of other specified parts of digestive tract; Z79.1 Long term (current) use of non-steroidal anti-inflammatories (NSAID); Z79.899 Other long term (current) drug therapy; Z98.890 Other specified postprocedural states
CPT/HCPCS: 36415; 80053; 80061; 82306; 82525; 82607; 82728; 82746; 83036; 83540; 83550; 83735; 83970; 84100; 84134; 84255; 84425; 84443; 84590; 84630; 85027; 85610; 85730; 99211

== ENCOUNTER → 2017-12-17 | Outpatient (CLI) | payer MEDICARE, OTHER ==
--- NOTE | 2017-12-17 16:18 | PN ---
PROGRESS NOTE DATE OF SERVICE: 12/17/2017 67-year-old lady who has been followed in Sleep Center for treatment of obstructive sleep apnea-hypopnea syndrome. The patient successfully continued to use her CPAP equipment practically every night without significant problems related to mask fitting, pressure and humidification. No snoring with the machine. [place] Sleepiness Scale today is 3. I checked her CPAP unit. CPAP pressure is 12 cm of water. Leak is 29 L/minute which is high for nasal pillow mask. There is a possibility that the patient opens her mouth during the sleep. No history of dry mouth and the patient believes she does not open her mouth. Apnea-hypopnea index only 0.7, which is totally normal. Usage is 24 /30 nights and about 21/30 nights more than 4 hours. Average usage is 5.3 hours. MEDICATIONS: Metformin, meloxicam, vitamin D, iron supplement, thyroid supplement, in the range of 50 mcg, omeprazole, pramipexole, Zyrtec. PHYSICAL EXAM: Patient in no distress. BP 166/76, HR around 105 to 110, RR 18, height 5 feet 5 inches and 1 quarter, weight 261.2 with a body mass index 43.1, temperature 98.6, oxygen saturation on room air 95%. HEENT: Oropharynx extremely low position of soft palate. HEART: S1, S2. Regular tachycardia. Neck Supple, no JVD. Thyroid is not palpable. LUNGS Clear to percussion and to auscultation. Good air exchange. No wheezing or rhonchi. HEART S1, S2 regular. ABDOMEN Soft and nontender. Bowel sounds are present. No organomegaly appreciated. EXTREMITIES No clubbing or cyanosis. MEDIA RELATIONS INTERN Awake, alert, and oriented X3. Cranial nerves 2 to 7 intact. There is no fasciculation or atrophy. noted. No focal deficits observed. IMPRESSION: 1. Extremely severe obstructive sleep apnea-hypopnea syndrome; apnea-hypopnea index 100.1 on full control with CPAP. The patient demonstrated borderline compliance with CPAP benefitting from treatment. 2. Tachycardia. 3. Obesity. The patient lost around 24 pounds since previous visit. 4. Hypothyroidism, on thyroid replacement. 5. Diabetes mellitus. 6. Acid reflux. 7. Polyarthritis. 8. Allergy. 9. History of hiatal hernia. 10.Status post right knee replacement. 11.History of iron deficiency anemia. 12.History of restless legs syndrome. 13.Status post total left shoulder replacement. 14.Patient is preparing for right shoulder replacement. PLAN: 1. Patient will continue to use CPAP equipment every night for the whole night with the same pressure. 2. The patient was fitted with a different style of nasal pillow mask. She likes it. We will write her prescription for new mask. 3. The patient is under evaluation for the tachycardia. Her thyroid profile should be checked. 4. Continue losing weight. 5. No driving if feeling sleepiness. 6. Prescription for all necessary CPAP supplies including mask, tube, filters. Thank you very much for allowing me to participate in management of your patient. Sincerely, Easton Haynes MD, PhD, FAASM Diplomat of [employer] Records [employer] Teacher of [facility] [place] MMELO / KIKE: [id number] / MTDD
== END | disposition home or self-care (01) ==
LOC: SLEEP 13:46
PROVIDERS: ATTEND Internal Medicine
DX: G47.33 Obstructive sleep apnea (adult) (pediatric) (principal); R00.0 Tachycardia, unspecified; E66.9 Obesity, unspecified; E03.9 Hypothyroidism, unspecified; E11.9 Type 2 diabetes mellitus without complications; K21.9 Gastro-esophageal reflux disease without esophagitis; M13.0 Polyarthritis, unspecified; T78.40XD Allergy, unspecified, subsequent encounter; Z68.41 Body mass index [BMI] 40.0-44.9, adult; Z86.2 Personal history of diseases of the blood and blood-forming organs and certain disorders involving the immune mechanism; Z87.19 Personal history of other diseases of the digestive system; Z86.69 Personal history of other diseases of the nervous system and sense organs; Z99.89 Dependence on other enabling machines and devices; Z96.611 Presence of right artificial shoulder joint; Z79.1 Long term (current) use of non-steroidal anti-inflammatories (NSAID); Z79.84 Long term (current) use of oral hypoglycemic drugs; Z79.899 Other long term (current) drug therapy

== ENCOUNTER → 2018-11-25 | Outpatient (CLI) | payer MEDICARE ==
--- NOTE | 2018-11-25 12:29 | P.PN ---
Subjective Progress Note Date: 11/25/18 DATE OF SERVICE: 11/25/2018 CHIEF COMPLAINT: Bariatric assessment HISTORY OF PRESENT ILLNESS: Yamileth Jimenez is a 67-year-old female who initially presented to the bariatric program in March 2016. She has history of lifelong morbid obesity. As a result of her obesity and during evaluation, she has been diagnosed with diabetes type 2 and obstructive sleep apnea. She has pre-existing hypertensive heart disease, and diffuse osteoarthritis including gastroesophageal reflux disease. She comes in with recurrent gastroesophageal reflux disease despite hiatal hernia repair 2 years ago. She has been lost to follow up for almost 2 years. At her 5 feet 5-1/2 inches, her ideal body weight is 149 pounds. Her highest weight was 289 pounds. Today she comes in weighing 265 pounds form 266 pounds, 2 years ago. She has lost 1 pound in 2 years. Body mass index is down from 47.5 down to 43.6. She is 116 pounds overweight. She comes in for a gastric bypass. PAST MEDICAL HISTORY: 1. Gastroesophageal reflux disease. 2. Morbid obesity due to excess calories, BMI 47.5, initial 3. Osteoarthritis of the lower back. 4. Osteoarthritis of bilateral knees. 5. Osteoporosis of the ankles. 6. Hypertensive heart disease 7. Panniculitis. 8. Obstructive sleep apnea. 9. Hypothyroidism PAST SURGICAL HISTORY: 1. Cholecystectomy. 2. Multiple bladder suspension surgeries. 3. Bilateral inguinal hernias. 4. Pinnings along the fingers. 5. Umbilical hernia repair. 6. Right total knee replacement x2. 7. Left foot surgery. 8. Tonsillectomy. 10. Upper endoscopy. 11. Robotic-assisted hiatal hernia repair July 2016 MEDICATIONS: Home Medications Medication Instructions Recorded Confirmed Levothyroxine Sodium [Synthroid] 50 mcg PO DAILY 11/30/18 01/21/19 Omeprazole 40 mg PO DAILY 11/30/18 01/21/19 Cetirizine HCl [Zyrtec] 10 mg PO DAILY 12/13/18 01/21/19 Pramipexole Di-HCl [Mirapex] 3 mg PO HS 12/13/18 01/21/19 Nystatin 100,000 Unit/gm Powd 1 applic TOPICAL BID PRN 12/24/18 01/21/19 [Mycostatin Powder] amLODIPine [Norvasc] 10 mg PO DAILY 12/24/18 01/21/19 Previous Rx's Medication Instructions Recorded Acetaminophen Oral Susp [Tylenol 650 mg PO Q4H PRN #200 ml 01/18/19 Oral Susp] Bisacodyl [Dulcolax] 5 mg PO DAILY PRN #10 tablet. 01/18/19 HYDROcodone/APAP [[place] Elixir 15 ml PO Q6HR PRN 3 Days #180 ml 01/18/19 7.5-325Mg/15Ml] Ondansetron Odt [Zofran Odt] 4 mg PO Q8HR PRN #9 tab 01/18/19 Simethicone 40 mg/0.6 ml Drops 40 mg PO PCHS PRN #30 ml 01/18/19 [Mylicon Drops] ALLERGIES: Allergies Allergy/AdvReac Type Severity Reaction Status Date / Time VINICIO Inhibitors Allergy angioedema Verified 01/21/19 11:21 ARB-Angiotensin Receptor Allergy angioedema Verified 01/21/19 11:21 Antagonist SOCIAL HISTORY: Past tobacco user. FAMILY HISTORY: Pertinent for morbid obesity, hypertension, diabetes that run in her family. REVIEW OF SYSTEMS: CONSTITUTIONAL: At her 5 feet 5-1/2 inches, her ideal body weight is 149 pounds. Her highest weight was 289 pounds. Body mass index is down from 47.5 down to 43.8. She is 117 pounds overweight. HEENT: Denies any troubles with vision or hearing. No reports of dysphagia. ENDOCRINE: Has thyroid disorder. Has diabetes. CARDIOVASCULAR: She has hypertension. She also had a previous cardiac catheterization. RESPIRATORY: Has obstructive sleep apnea. No recent pneumonias. GASTROINTESTINAL: History of gastroesophageal reflux disease recurrent despite hiatal hernia repair. MUSCULOSKELETAL: Has osteoarthritis of the bilateral hands, lower back, bilateral knees. NEURO: No reports of stroke or seizure disorder. PSYCH: No reports of depression or suicidal ideation. HEMATOLOGIC: Denies any easy bruising or bleeding. SKIN: Has recurrent panniculitis. No current rash. PHYSICAL EXAM: VITAL SIGNS: 5 feet 5-1/2 inches, 265 pounds. Body mass index 43.6. Vital Signs Temp 98.2 F 11/25/18 12:38 Pulse 109 H 11/25/18 12:38 Resp 16 11/25/18 12:38 BP 182/108 11/25/18 12:38 Pulse Ox GENERAL: Well-developed female in no acute distress. HEENT: No sclerae icterus. Extraocular movements grossly intact. Moist buccal mucosa. NECK: Supple without lymphadenopathy. CHEST: Non-labored respirations with equal bilateral excursions. CARDIOVASCULAR: Tachycardia. 2+ palpable pulses. ABDOMEN: Protuberant, soft, nondistended. MUSCULOSKELETAL: No clubbing, cyanosis or edema. NEURO: No focal or lateralizing signs. Cranial nerves 2 through 12 grossly within normal limits. PSYCH: Appropriate affect. Alert and oriented to person, place and time. SKIN: Has panniculitis. Well-perfused. Good skin turgor. ASSESSMENT: 1. Morbid obesity due to excess calories. 2. Body mass index reduced from 47.5 down to 43.6 3. Family history of morbid obesity. 4. Osteoarthritis of bilateral knees. 5. Osteoarthritis of bilateral ankles. 6. 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 7. Gastroesophageal reflux disease. 8. Chronic panniculitis. 9. Hypertensive heart disease. 10. Iron deficiency anemia. 11. Diabetes, type 2. 12. Obstructive sleep apnea. 13. Hypercholesterolemia. 14. Vitamin D deficiency. 15. Hypothyroidism. 16. Restless leg syndrome. 17. Panniculitis. PLAN: 1. Surgical options including a band, gastric bypass, sleeve gastrectomy were described in detail. Alternatives such as gastric balloon including duodenal switch were described. She is looking into the gastric bypass. 2. The [place] [facility] collaborative data and outcomes calculator were described with surgical options. 3. Recommend a bariatric metabolic panel to evaluate for micro- including macronutrient deficiencies. 4. Recommend treatment for sleep apnea. 5. Dietary surveillance and counseling was reviewed. Increased protein intake over 65 grams daily advised. 6. Will need cardiac risk assessment. 7. Recommend medical risk assessment. 8. Psych assessment per insurance guidelines. 9. Recommend upper endoscopy. 10. Recommend 12-lead EKG. 11. Recommend omeprazole 40 mg daily for gastroesophageal reflux disease. Thank you for this consultation. Objective - Labs CBC & Chem 7: 11/25/18 13:04 11/25/18 13:04
[2018-11-25 12:35] VITALS: RESP 16; BMI 43.6
[2018-11-25 12:40] VITALS: BP 182/108; PULSE 109; TEMP 98.2
[2018-11-25 13:42] LABS: HCT 40.2 % (34.0-46.0); HGB 13.2 gm/dL (11.4-16.0); MCH 26.3 pg (25.0-35.0); MCHC 32.9 g/dL (31.0-37.0); MCV 79.9 fL (80.0-100.0); Mean Platelet Volume 6.5; Platelet Count 311 k/uL (150-450); RBC 5.03 m/uL (3.80-5.40); RDW 13.9 % (11.5-15.5); WBC 8.1 k/uL (3.8-10.6)
[2018-11-25 21:04] LABS: Iron Saturation 13.66 (12.00-45.00); Iron(FE) 56 ug/dL (50-170)
[2018-11-25 21:08] LABS: African American GFR (CKD) 105.4 (60.0-200.0); Albumin 4.2 g/dL (3.80-4.90); Albumin/Globulin Ratio 2.1 (1.60-3.17); Anion Gap 14.2 mmol/L (4.00-12.00); BUN/Creat Ratio 24.29 Ratio (12.00-20.00); Calcium 9.7 mg/dL (8.7-10.3); Carbon Dioxide 25.8 mmol/L (21.6-31.8); Chol/HDL Ratio 3.83; LDL Cholesterol,Calculated 116.2 mg/dL (0.0-131.0); Non-African American GFR(CKD) 90.9 (60.0-200.0); Potassium 3.9 mmol/L (3.5-5.5); Total Bilirubin 0.2 mg/dL (0.2-1.2); Total Protein 6.2 g/dL (6.2-8.2); VLDL Calculation 33.8 mg/dL (5.00-40.00)
[2018-11-25 21:15] LABS: Vitamin D 25 Hydroxy 19.9 ng/mL (30.0-100.0)
[2018-11-25 21:16] LABS: Hemoglobin A1C 7.5 % (4.0-6.0)
[2018-11-25 21:38] LABS: Ferritin 16.2 ng/mL (10.0-291.0); Folate, Serum >24.0 ng/mL
== END | disposition home or self-care (01) ==
LOC: BARWHC3 10:19
PROVIDERS: ATTEND Surgery Plastic and Reconstructive Surgery
DX: E88.81 Metabolic syndrome and other insulin resistance (principal); E66.01 Morbid (severe) obesity due to excess calories; Z68.41 Body mass index [BMI] 40.0-44.9, adult; M17.0 Bilateral primary osteoarthritis of knee; M19.072 Primary osteoarthritis, left ankle and foot; M19.071 Primary osteoarthritis, right ankle and foot; M19.90 Unspecified osteoarthritis, unspecified site; K21.9 Gastro-esophageal reflux disease without esophagitis; M79.3 Panniculitis, unspecified; I11.9 Hypertensive heart disease without heart failure; I50.9 Heart failure, unspecified; D50.9 Iron deficiency anemia, unspecified; E11.9 Type 2 diabetes mellitus without complications; G47.33 Obstructive sleep apnea (adult) (pediatric); E78.00 Pure hypercholesterolemia, unspecified; E55.9 Vitamin D deficiency, unspecified; E03.9 Hypothyroidism, unspecified; G25.81 Restless legs syndrome; Z87.891 Personal history of nicotine dependence; Z90.49 Acquired absence of other specified parts of digestive tract; Z98.890 Other specified postprocedural states; Z79.899 Other long term (current) drug therapy; Z88.8 Allergy status to other drugs, medicaments and biological substances; E44.0 Moderate protein-calorie malnutrition
CPT/HCPCS: 84425; 80061; 80053; 82607; 82728; 82746; 83540; 83550; 84443; 85027; 82306; 83036; 93005; G0463; 99211

== ENCOUNTER → 2018-12-13 | Outpatient (CLI) | payer MEDICARE ==
--- NOTE | 2018-12-13 13:09 | XR ---
EXAMINATION TYPE: XR cervical spine limited DATE OF EXAM: 12/13/2018 COMPARISON: NONE HISTORY: Pain TECHNIQUE: 3 views submitted FINDINGS: Diffuse osteopenia. There is loss the cervical lordosis with severe degenerative disc disea se C5-6 and C6-C7. 2 mm anterolisthesis C4 on C5 there is multilevel hypertrophic facet arthropathy. Prevertebral soft tissue structures within normal limits. Odontoid intact. IMPRESSION: 1. Severe degenerative disc disease and hypertrophic changes C5-6 and C6-C7. Reversal of the normal c ervical lordosis. 2. 2 mm anterolisthesis C4 on C5.
--- NOTE | 2018-12-13 13:11 | XR ---
EXAM TYPE: LUMBAR SPINE X RAY SERIES COMPARISON: NONE HISTORY: Chronic back pain TECHNIQUE: 4 views are submitted. FINDINGS: Severe scoliotic curvature with severe degenerative disc disease and facet arthropathy at all levels. Age-indeterminate severe compression deformity T12. Hypertrophic spurring noted anteriorly and suspe cted foraminal encroachment at all levels. Vascular calcification seen. Surgical clips in the right u pper quadrant. IMPRESSION: 1. Scoliosis with severe degenerative disc disease at all levels. Suspect foraminal encroachment. 2. Age-indeterminate severe compression deformity T12.
--- NOTE | 2018-12-13 13:13 | XR ---
EXAMINATION TYPE: XR thoracic spine complete DATE OF EXAM: 12/13/2018 COMPARISON: NONE HISTORY: Pain FINDINGS: There is a scoliotic curvature with multilevel degenerative disc disease. Age-indeterminate compressi on deformity of T12. Hypertrophic spurring at multiple levels. Pedicles are intact. IMPRESSION: 1. Scoliotic curvature was multilevel degenerative disc disease. 2. Age-indeterminate compression fracture T12. Correlate with MRI.
== END ==
LOC: LABWHC1 12:30
PROVIDERS: ATTEND Chiropractor
DX: M50.322 Other cervical disc degeneration at C5-C6 level (principal); M43.12 Spondylolisthesis, cervical region; M51.34 Other intervertebral disc degeneration, thoracic region; M51.36 Other intervertebral disc degeneration, lumbar region; M41.9 Scoliosis, unspecified
CPT/HCPCS: 72040; 72072; 72100

== ENCOUNTER → 2018-12-13 | Outpatient (CLI) | payer MEDICARE ==
[2018-12-13 10:04] VITALS: BMI 44.0
== END | disposition home or self-care (01) ==
LOC: BARWHC3 08:55
PROVIDERS: ATTEND Surgery Plastic and Reconstructive Surgery
DX: E66.01 Morbid (severe) obesity due to excess calories (principal); Z68.41 Body mass index [BMI] 40.0-44.9, adult
CPT/HCPCS: 97804

== ENCOUNTER 2018-12-27 08:45 | Day surgery (SDC) | payer MEDICARE ==
[2018-12-23 14:29] VITALS: BMI 42.7
--- NOTE | 2018-12-27 07:43 | P.GSHP ---
History of Present Illness H&P Date: 12/27/18 CHIEF COMPLAINT: GERD HISTORY OF PRESENT ILLNESS: The patient is a 68-year-old female who presents reports gastroesophageal reflux disease. Upper endoscopy was offered for further evaluation and management. PAST MEDICAL HISTORY: Please see list. PAST SURGICAL HISTORY: Please see list. MEDICATIONS: Please see list. ALLERGIES: Please see list. SOCIAL HISTORY: No illicit drug use FAMILY HISTORY: No reports of Crohn disease or ulcerative colitis. REVIEW OF ORGAN SYSTEMS: CONSTITUTIONAL: No reports of fevers or chills. GI: Denies any blood in stools or constipation. PHYSICAL EXAM: VITAL SIGNS: Stable GENERAL: Well-developed and pleasant in no acute distress. HEENT: No scleral icterus. Extraocular movements grossly intact. Moist buccal mucosa. NECK: Supple without lymphadenopathy. CHEST: Unlabored respirations. Equal bilateral excursions. CARDIOVASCULAR: Regular rate and rhythm. Distal 2+ pulses. ABDOMEN: Soft, nondistended. MUSCULOSKELETAL: No clubbing, cyanosis, or edema. ASSESSMENT: 1. Gastroesophageal reflux disease PLAN: 1. Recommend proceeding with an upper endoscopy Past Medical History Past Medical History: GERD/Reflux, Hypertension, Osteoarthritis (OA) Additional Past Medical History / Comment(s): patient states that she has a 20% reduction in breathing/lung capacity as of March 2016, Water retention, restless leg syndrome, hiatal hernia dx in March 2016, LEFT KNEE IS "BONE ON BONE" patient completed series of 3 Symvis injections in March 2016 (after cortisone failed),angioedema History of Any Multi-Drug Resistant Organisms: None Reported Past Surgical History: Cholecystectomy, Hernia Repair, Joint Replacement, Orthopedic Surgery, Tonsillectomy Additional Past Surgical History / Comment(s): Inguinal HERNIA REPAIR X7,1 umbilical hernia, RT WES KNEE,BLADDER SURGERY,LT FOOT SURGERY, FUSIONS TO 2ND DIGITS OF LEFT HAND, RT HAND HAS METAL PLATE (NOT FUSION) IN DIGIT 2, EYELID LIFT, donovan shoulder replacement Past Anesthesia/Blood Transfusion Reactions: Postoperative Nausea & Vomiting (PONV) Additional Past Anesthesia/Blood Transfusion Reaction / Comment(s): NO HX OF TRANSFUSION Smoking Status: Former smoker - Past Family History Father Family Medical History: Hypertension, Osteoarthritis (OA) Additional Family Medical History / Comment(s): FROM HEART ISSUES AT AGE 86 Mother Family Medical History: Cancer, Hypertension, Osteoarthritis (OA) Additional Family Medical History / Comment(s): CANCEROUS TUMOR IN LUNG (NOT LUNG CANCER PER PATIENT), AT AGE 80 FROM HEART ATTACK Medications and Allergies Home Medications Medication Instructions Recorded Confirmed Type Ergocalciferol [Vitamin D2 50,000 unit PO MO 08/19/16 12/24/18 History (DRISDOL)] Levothyroxine Sodium [Synthroid] 50 mcg PO DAILY 11/30/18 12/24/18 History Omeprazole 40 mg PO DAILY 11/30/18 12/24/18 History Cetirizine HCl [Zyrtec] 10 mg PO DAILY 12/13/18 12/24/18 History Furosemide [Lasix] 20 mg PO BID 12/13/18 12/24/18 History Meloxicam [Mobic] 15 mg PO DAILY 12/13/18 12/24/18 History Pramipexole Di-HCl [Mirapex] 3 mg PO HS 12/13/18 12/24/18 History metFORMIN HCL [Glucophage] 500 mg PO BID 12/13/18 12/24/18 History Multivitamins, Thera [Multivitamin 1 tab PO DAILY 12/24/18 12/24/18 History (formulary)] Nystatin 100,000 Unit/gm Powd 1 applic TOPICAL BID PRN 12/24/18 12/24/18 History [Mycostatin Powder] Potassium Chloride 10 meq PO BID 12/24/18 12/24/18 History amLODIPine [Norvasc] 10 mg PO DAILY 12/24/18 12/24/18 History Allergies Allergy/AdvReac Type Severity Reaction Status Date / Time VINICIO Inhibitors Allergy angioedema Verified 12/24/18 09:31 ARB-Angiotensin Receptor Allergy angioedema Verified 12/24/18 09:31 Antagonist
[~2018-12-27 08:45] MED LIST changes: -LIDOCAINE 1% 20 ML VIAL (10MG/ML) FOR IV START INTRADERMA PRN
[2018-12-27 08:59] VITALS: TEMP 98.1
[2018-12-27] MEDS ORDERED: LIDOCAINE 1% 20 ML VIAL (10MG/ML) FOR IV START INTRADERMA ONE (09:00)
[2018-12-27 09:09] LABS: Glucose,Whole Blood 131 mg/dL (75-99)
[2018-12-27] MEDS ORDERED: LIDOCAINE 1% INJ 10MG/ML (20 ML MDV) ONE (09:39)
[2018-12-27] MEDS ORDERED: PROPOFOL 10 MG/ML 20 ML VIAL IV ONE (09:39)
--- NOTE | 2018-12-27 09:54 | P.PCN ---
Date of Procedure: 12/27/18 Description of Procedure: PREOPERATIVE DIAGNOSIS: Gastroesophageal reflux disease. Morbid obesity. POSTOPERATIVE DIAGNOSIS: Morbid obesity. Gastritis. Gastroesophageal reflux disease. Diaphragmatic hiatal hernia Retained food Diabetic gastroparesis OPERATION: Esophagogastroduodenoscopy with biopsies along antrum. SURGEON: Alexia Trujillo MD ANESTHESIA: MAC. INDICATIONS: The patient is a 68-year-old female who presents with a history of reflux disease. Benefits and risks of the procedure were described. Informed consent was obtained. DESCRIPTION: The patient was brought into the endoscopy suite and laid in the left lateral decubitus position. An Olympus gastroscope was passed along the posterior oropharynx down to the distal esophagus where the squamocolumnar junction was encountered at 37 cm from the incisors. The stomach was entered and no bile reflux was found. Additional findings are listed below. Biopsies with cold forceps were obtained of the antrum. The first through third portion of the duodenum was examined and unremarkable. Retroflexion of the scope confirmed Hill grade 4 lower esophageal valve. The squamocolumnar junction demonstrated LA grade C erosive esophagitis. The stomach was desufflated. The patient tolerated the procedure well. FINDINGS: Squamocolumnar junction 37 cm from the incisors. Diaphragmatic hiatus at 35 cm. Hiatal hernia, 2 cm, recurrent sliding hiatal hernia Hill grade 4 lower esophageal valve. LA grade C erosive esophagitis. No active duodenitis. Chronic gastritis Moderate retained food within the stomach consistent with gastroparesis RECOMMENDATIONS: Upper endoscopy as needed. Plan - Discharge Summary Discharge Rx Participant: No New Discharge Prescriptions: New Metoclopramide [Reglan] 10 mg PO ACHS #30 tab No Action Ergocalciferol [Vitamin D2 (DRISDOL)] 50,000 unit PO MO Levothyroxine Sodium [Synthroid] 50 mcg PO DAILY Omeprazole 40 mg PO DAILY metFORMIN HCL [Glucophage] 500 mg PO BID Meloxicam [Mobic] 15 mg PO DAILY Furosemide [Lasix] 20 mg PO BID Cetirizine HCl [Zyrtec] 10 mg PO DAILY Pramipexole Di-HCl [Mirapex] 3 mg PO HS Multivitamins, Thera [Multivitamin (formulary)] 1 tab PO DAILY Potassium Chloride 10 meq PO BID amLODIPine [Norvasc] 10 mg PO DAILY Nystatin 100,000 Unit/gm Powd [Mycostatin Powder] 1 applic TOPICAL BID PRN PRN Reason: Skin Irritation Discharge Medication List Ergocalciferol [Vitamin D2 (DRISDOL)] 50,000 unit PO MO 08/19/16 [History] Levothyroxine Sodium [Synthroid] 50 mcg PO DAILY 11/30/18 [History] Omeprazole 40 mg PO DAILY 11/30/18 [History] Cetirizine HCl [Zyrtec] 10 mg PO DAILY 12/13/18 [History] Furosemide [Lasix] 20 mg PO BID 12/13/18 [History] Meloxicam [Mobic] 15 mg PO DAILY 12/13/18 [History] Pramipexole Di-HCl [Mirapex] 3 mg PO HS 12/13/18 [History] metFORMIN HCL [Glucophage] 500 mg PO BID 12/13/18 [History] Multivitamins, Thera [Multivitamin (formulary)] 1 tab PO DAILY 12/24/18 [History] Nystatin 100,000 Unit/gm Powd [Mycostatin Powder] 1 applic TOPICAL BID PRN 12/24/18 [History] Potassium Chloride 10 meq PO BID 12/24/18 [History] amLODIPine [Norvasc] 10 mg PO DAILY 12/24/18 [History] Metoclopramide [Reglan] 10 mg PO ACHS #30 tab 12/27/18 [Rx] [facility]ment(s[facility]Ref[place] [facility] [place] [place] [facility] [place] [facility] Patient Instructions/Handouts: Gastroparesis (DC), Gastroesophageal Reflux Disease (DC) Discharge Disposition: HOME SELF-CARE
[2018-12-27 10:58] VITALS: BP 162/78; PULSE 93; RESP 17
== END 2018-12-27 11:07 | disposition home or self-care (01) ==
LOC: ORWHC2ENDO 08:45
PROVIDERS: ATTEND Surgery Plastic and Reconstructive Surgery
DX: K22.10 Ulcer of esophagus without bleeding (principal); K44.9 Diaphragmatic hernia without obstruction or gangrene; K31.84 Gastroparesis; K21.0 Gastro-esophageal reflux disease with esophagitis; E66.01 Morbid (severe) obesity due to excess calories; Z68.41 Body mass index [BMI] 40.0-44.9, adult; I10 Essential (primary) hypertension; M19.90 Unspecified osteoarthritis, unspecified site; G25.81 Restless legs syndrome; J98.4 Other disorders of lung; R60.9 Edema, unspecified; T78.3XXA Angioneurotic edema, initial encounter; Z90.49 Acquired absence of other specified parts of digestive tract; Z96.651 Presence of right artificial knee joint; Z96.612 Presence of left artificial shoulder joint; Z96.611 Presence of right artificial shoulder joint; Z87.891 Personal history of nicotine dependence; Z82.49 Family history of ischemic heart disease and other diseases of the circulatory system; Z82.61 Family history of arthritis; Z80.1 Family history of malignant neoplasm of trachea, bronchus and lung; Z79.84 Long term (current) use of oral hypoglycemic drugs; Z79.1 Long term (current) use of non-steroidal anti-inflammatories (NSAID); Z79.890 Hormone replacement therapy; Z79.899 Other long term (current) drug therapy; Z91.09 Other allergy status, other than to drugs and biological substances
CPT/HCPCS: 88305; 43239; J2001; J2704

== ENCOUNTER → 2018-12-29 | Outpatient (CLI) | payer MEDICARE ==
--- NOTE | 2018-12-29 16:51 | P.PN ---
Subjective Progress Note Date: 12/29/18 Consent for bypass. She has gastroparesis. Reglan continue. Ok for surgery.
[2018-12-29 16:57] VITALS: BP 148/87; PULSE 118; RESP 16; TEMP 97.2; BMI 45.0
== END | disposition home or self-care (01) ==
LOC: BARWHC3 16:14
PROVIDERS: ATTEND Surgery Plastic and Reconstructive Surgery
DX: K31.84 Gastroparesis (principal); Z79.899 Other long term (current) drug therapy
CPT/HCPCS: 99211

== ENCOUNTER → 2019-01-07 | Outpatient (CLI) | payer MEDICARE ==
[2019-01-07 10:26] LABS: Basophils % (A) 1 %; Eosinophils # (A) 0.2 k/uL (0-0.7); Eosinophils % (A) 4 %; HCT 40.3 % (34.0-46.0); Lymphocytes # (A) 1.2 k/uL (1.0-4.8); Lymphocytes % (A) 22 %; MCH 26.4 pg (25.0-35.0); MCHC 32.2 g/dL (31.0-37.0); MCV 82.1 fL (80.0-100.0); Mean Platelet Volume 7.1; Monocytes # (A) 0.2 k/uL (0-1.0); Monocytes % (A) 4 %; Neutrophils # (A) 3.7 k/uL (1.3-7.7); Neutrophils % (A) 67 %; Platelet Count 241 k/uL (150-450); RBC 4.92 m/uL (3.80-5.40); RDW 14.1 % (11.5-15.5); WBC 5.5 k/uL (3.8-10.6)
[2019-01-07 10:34] LABS: ALT 70 U/L (9-52); AST 39 U/L (14-36); African American GFR (CKD) >90 (>60 ml/min/1.73 sqM); Albumin 4.1 g/dL (3.5-5.0); Alkaline Phosphatase 106 U/L (38-126); Anion Gap 9 mmol/L; Blood Urea Nitrogen 17 mg/dL (7-17); Calcium 9.8 mg/dL (8.4-10.2); Carbon Dioxide 28 mmol/L (22-30); Chloride 103 mmol/L (98-107); Glucose 134 mg/dL (74-99); Potassium 4.9 mmol/L (3.5-5.1); Sodium 140 mmol/L (137-145); Total Bilirubin 0.4 mg/dL (0.2-1.3)
== END | disposition home or self-care (01) ==
LOC: LABPAT 09:21
PROVIDERS: ATTEND Surgery Plastic and Reconstructive Surgery
DX: Z01.812 Encounter for preprocedural laboratory examination (principal)
CPT/HCPCS: 36415; 80053; 85025; 86850; 86900; 86901

== ENCOUNTER 2019-01-17 09:30 | Inpatient (IN) | payer MEDICARE ==
--- NOTE | 2019-01-17 05:44 | P.GSHP ---
History of Present Illness H&P Date: 01/17/19 DATE OF SERVICE: 01/17/2019. CHIEF COMPLAINT: Morbid obesity HISTORY OF PRESENT ILLNESS: Yamileth Jimenez is a 66-year-old female who initially presented to the bariatric program in March 2016. At her 5 feet 5-1/2 inches, her ideal body weight is 149 pounds. Her highest weight was 289 pounds. Today she comes in weighing 258 pounds from 266 pounds, 2 years ago. She has lost 31 pounds in 2 years. Body mass index is down from 47.5 down to 42.4. She is 109 pounds overweight. As a result of her morbid obesity, she has developed obstructive sleep apnea, diabetes type 2, hypertensive heart disease, and diffuse osteoarthritis. PAST MEDICAL HISTORY: 1. Gastroesophageal reflux disease. 2. Morbid obesity. 3. Osteoarthritis of the lower back. 4. Osteoarthritis of bilateral knees. 5. Osteoporosis of the ankles. 6. Hypertension. 7. Panniculitis. 8. Obstructive sleep apnea. PAST SURGICAL HISTORY: 1. Cholecystectomy. 2. Multiple bladder suspension surgeries. 3. Bilateral inguinal hernias. 4. Pinnings along the fingers. 5. Umbilical hernia repair. 6. Right total knee replacement x2. 7. Left foot surgery. 8. Tonsillectomy. 10. Upper endoscopy. 11. Robotic-assisted hiatal hernia repair July 2016. MEDICATIONS: 1. Mirapex. 2. Prilosec. 3. Meloxicam. 4. Lasix. 5. Benazepril/hydrochlorothiazide. ALLERGIES: DENIES. SOCIAL HISTORY: Denies any active tobacco use, however, she is a former tobacco user. FAMILY HISTORY: Pertinent for morbid obesity, hypertension, diabetes that run in her family. REVIEW OF SYSTEMS: CONSTITUTIONAL: At her 5 feet 5-1/2 inches, her ideal body weight is 149 pounds. Her highest weight was 289 pounds. Body mass index is down from 47.5 down to 42.1. She is 109 pounds overweight. HEENT: Denies any troubles with vision or hearing. No reports of dysphagia. ENDOCRINE: Has thyroid disorder. Has diabetes. CARDIOVASCULAR: She has hypertension, for which she is on at least 2 different medications. She also had a previous cardiac catheterization performed in January of 2014 with findings of no evidence of pulmonary hypertension. Mild left ventricular hypertrophy was also identified. RESPIRATORY: Has obstructive sleep apnea. No recent pneumonias. GASTROINTESTINAL: History of gastroesophageal reflux disease recurrent despite hiatal hernia repair. MUSCULOSKELETAL: Has osteoarthritis of the bilateral hands, lower back, bilateral knees. NEURO: No reports of stroke or seizure disorder. PSYCH: No reports of depression or suicidal ideation. HEMATOLOGIC: Denies any easy bruising or bleeding. PHYSICAL EXAM: VITAL SIGNS: 5 feet 5-1/2 inches, 258 pounds. Body mass index 42.4. GENERAL: Well-developed female in no acute distress. HEENT: No sclerae icterus. Extraocular movements grossly intact. Moist buccal mucosa. NECK: Supple without lymphadenopathy. CHEST: Non-labored respirations with equal bilateral excursions. CARDIOVASCULAR: Regular rate. Regular rhythm. 2+ palpable pulses. ABDOMEN: Protuberant, soft, nondistended. MUSCULOSKELETAL: No clubbing, cyanosis or edema. NEURO: No focal or lateralizing signs. Cranial nerves 2 through 12 grossly within normal limits. PSYCH: Appropriate affect. Alert and oriented to person, place and time. SKIN: Has panniculitis. Well-perfused. Good skin turgor. ASSESSMENT: 1. Morbid obesity due to excess calories. 2. Body mass index reduced from 47.5 down to 42.4. 3. Family history of morbid obesity. 4. Osteoarthritis of bilateral knees. 5. Osteoarthritis of bilateral ankles. 6. 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 7. Gastroesophageal reflux disease. 8. Chronic panniculitis. 9. Hypertensive heart disease. 10. Iron deficiency anemia. 11. Diabetes, type 2. 12. Obstructive sleep apnea. 13. Hypercholesterolemia. 14. Vitamin D deficiency. 15. Hypothyroidism. 16. Restless leg syndrome. 17. Panniculitis. PLAN: 1. Bariatric options between a sleeve, band and a [id number]-Y gastric bypass were reviewed in detail. The patient elected for a gastric bypass. Robotic assisted approach described. 2. The [place] [facility] Data was also reviewed with benefits and risks as described. 3. An 8 page second-generation bariatric consent form was reviewed in detail including potential of bleeding, infection, leaks, adequate weight loss, nutritional deficiencies which the patient demonstrated understanding of the risks. 4. A 2 week high-protein low caloric 800 kcal diet described to address hepatomegaly. 5. Preoperative labs including complete metabolic panel and CBC with type and screen recommended. 6. DVT prophylaxis per [place] [facility]. 7. Antibiotic prophylaxis. 8. Inpatient hospitalization anticipated for more than 2 nights. 9. All questions and concerns were addressed with the patient. Past Medical History Past Medical History: Diabetes Mellitus, GERD/Reflux, Hypertension, Osteoarthritis (OA), Sleep Apnea/CPAP/BIPAP Additional Past Medical History / Comment(s): patient states that she has a 20% reduction in breathing/lung capacity as of March 2016, edema legs, restless leg syndrome, hiatal hernia dx in March 2016, supposed to use CPAP History of Any Multi-Drug Resistant Organisms: None Reported Past Surgical History: Bladder Surgery, Cholecystectomy, Hernia Repair, Joint Replacement, Orthopedic Surgery, Tonsillectomy Additional Past Surgical History / Comment(s): HERNIA REPAIR X7,1 umbilical hernia, paraesophageal hernia repair, RT TOT KNEE x2, BLADDER SURGERY, LT FOOT SURGERY, FUSIONS TO 2ND DIGIT OF LEFT HAND, RT HAND HAS METAL PLATE (NOT FUSION) IN DIGIT 2, blepharoplasty, recent EGD, donovan shoulder replacements, lasik eye surg. Past Anesthesia/Blood Transfusion Reactions: Postoperative Nausea & Vomiting (PONV) Additional Past Anesthesia/Blood Transfusion Reaction / Comment(s): NO HX OF TRANSFUSION Smoking Status: Former smoker - Past Family History Father Family Medical History: Hypertension, Osteoarthritis (OA) Additional Family Medical History / Comment(s): FROM HEART ISSUES AT AGE 86 Mother Family Medical History: Cancer, Hypertension, Osteoarthritis (OA) Additional Family Medical History / Comment(s): CANCEROUS TUMOR IN LUNG (NOT LUNG CANCER PER PATIENT), AT AGE 80 FROM HEART ATTACK Medications and Allergies Home Medications Medication Instructions Recorded Confirmed Type Ergocalciferol [Vitamin D2 50,000 unit PO MO 08/19/16 01/13/19 History (DRISDOL)] Levothyroxine Sodium [Synthroid] 50 mcg PO DAILY 11/30/18 01/13/19 History Omeprazole 40 mg PO DAILY 11/30/18 01/13/19 History Cetirizine HCl [Zyrtec] 10 mg PO DAILY 12/13/18 01/13/19 History Furosemide [Lasix] 20 mg PO BID 12/13/18 01/13/19 History Meloxicam [Mobic] 15 mg PO DAILY 12/13/18 01/13/19 History Pramipexole Di-HCl [Mirapex] 3 mg PO HS 12/13/18 01/13/19 History metFORMIN HCL [Glucophage] 500 mg PO BID 12/13/18 01/13/19 History Multivitamins, Thera [Multivitamin 1 tab PO DAILY 12/24/18 01/13/19 History (formulary)] Nystatin 100,000 Unit/gm Powd 1 applic TOPICAL BID PRN 12/24/18 01/13/19 History [Mycostatin Powder] Potassium Chloride 10 meq PO BID 12/24/18 01/13/19 History amLODIPine [Norvasc] 10 mg PO DAILY 12/24/18 01/13/19 History Allergies Allergy/AdvReac Type Severity Reaction Status Date / Time VINICIO Inhibitors Allergy angioedema Verified 01/12/19 15:50 ARB-Angiotensin Receptor Allergy angioedema Verified 01/12/19 15:50 Antagonist
[~2019-01-17 09:30] MED LIST changes: +CHLORHEXIDINE GLUCONATE 15 ML CUP MUCOUS MEM ONE; +DEXAMETHASONE SOD PHOSPHATE 10 MG/ML 1 ML VIAL IV ONE; +ENOXAPARIN 40 MG/0.4 ML SYRINGE SQ ONE; +HYDROmorphone 0.5 MG/0.5 ML SYRINGE IVP PRN; -LACTATED RINGERS 1,000 ML IV SCH; +LIDOCAINE 1% 20 ML VIAL (10MG/ML) FOR IV START INTRADERMA PRN; +ONDANSETRON 4 MG/2 ML VIAL IVP ONE; +PANTOPRAZOLE 40 MG/10 ML VIAL IV ONE; +fentaNYL (PF) 50 MCG/ML 2 ML AMP IV PRN
[2019-01-17] MEDS: LACTATED RINGERS 1,000 ML IV SCH ×2 (09:46→23:40)
[2019-01-17 10:16] LABS: Glucose,Whole Blood 108 mg/dL (75-99)
[2019-01-17] MEDS ORDERED: SUCCINYLCHOLINE CHLORIDE 100 MG/5 ML SYR IV ONE (10:28)
[2019-01-17] MEDS ORDERED: MIDAZOLAM 2 MG/2 ML VIAL ONE (10:28)
[2019-01-17] MEDS ORDERED: ROCURONIUM BROMIDE 10 MG/ML 10 ML VIAL IV ONE (10:28)
[2019-01-17] MEDS ORDERED: fentaNYL (PF) 50 MCG/ML 2 ML AMP ONE (10:28)
[2019-01-17] MEDS ORDERED: NEOSTIGMINE 1 MG/ML 10 ML VIAL ONE (10:28)
[2019-01-17] MEDS ORDERED: LIDOCAINE 1% INJ 10MG/ML (20 ML MDV) ONE (10:28)
[2019-01-17] MEDS ORDERED: PROPOFOL 10 MG/ML 20 ML VIAL IV ONE (10:28)
[2019-01-17] MEDS ORDERED: HYDROmorphone (PF) 1 MG/ML ONE (10:28)
[2019-01-17] MEDS ORDERED: GLYCOPYRROLATE 0.2 MG/ML 2 ML VIAL ONE (10:28)
[2019-01-17] MEDS: ceFAZolin 3 GM in SODIUM CHLORIDE 0.9% 100 ML IVPB ONE ×2 (10:33→10:39)
[2019-01-17] MEDS ORDERED: LIDOCAINE 1%-EPI 1:100,000 20 ML VIAL SQ ONE (10:53)
[2019-01-17] MEDS ORDERED: LACTATED RINGERS 1,000 ML IV ONE ×3 (11:25→14:05)
[2019-01-17 13:47] LABS: Glucose,Whole Blood 159 mg/dL (75-99)
[2019-01-17] MEDS ORDERED: HYDROcodone/APAP 15 ML SOLUTION PO PRN (13:48)
[2019-01-17] MEDS ORDERED: HYOSCYAMINE ORAL DROPS 1.875 MG/15 ML BOTTLE PO PRN (13:48)
[2019-01-17] MEDS ORDERED: diphenhydrAMINE 50 MG/ML 1 ML VIAL IVP PRN (13:48)
[2019-01-17] MEDS ORDERED: NALOXONE 0.4 MG/ML 1 ML VIAL IV PRN (13:48)
--- NOTE | 2019-01-17 13:48 | P.OP ---
Date of Procedure: 01/17/19 Description of Procedure: SURGEON: JORGE SMITH MD PREOPERATIVE DIAGNOSES: 1. Morbid obesity due to excess calories. 2. Body mass index reduced from 47.5 down to 42.4. 3. Family history of morbid obesity. 4. Osteoarthritis of bilateral knees. 5. Osteoarthritis of bilateral ankles. 6. 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 7. Gastroesophageal reflux disease. 8. Chronic panniculitis. 9. Hypertensive heart disease. 10. Iron deficiency anemia. 11. Diabetes, type 2. 12. Obstructive sleep apnea. 13. Hypercholesterolemia. 14. Vitamin D deficiency. 15. Hypothyroidism. 16. Restless leg syndrome. 17. Panniculitis. POSTOPERATIVE DIAGNOSES: 1. Morbid obesity due to excess calories. 2. Body mass index reduced from 47.5 down to 42.4. 3. Family history of morbid obesity. 4. Osteoarthritis of bilateral knees. 5. Osteoarthritis of bilateral ankles. 6. 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 7. Gastroesophageal reflux disease. 8. Chronic panniculitis. 9. Hypertensive heart disease. 10. Iron deficiency anemia. 11. Diabetes, type 2. 12. Obstructive sleep apnea. 13. Hypercholesterolemia. 14. Vitamin D deficiency. 15. Hypothyroidism. 16. Restless leg syndrome. 17. Panniculitis. OPERATION: 1. Robotic assisted da Eli Xi laparoscopic Blank-en-Y gastric bypass, 100 cm antecolic antegastric Blank limb, with 25 mm EEA. 2. Intraoperative esophagogastrojejunoscopy. ANESTHESIA: GETA and local ESTIMATED BLOOD LOSS: 5 mL SPECIMENS REMOVED: None. COMPLICATIONS: NONE. INDICATIONS: Yamileth Jimenez is a 68-year-old female who presents for gastric bypass. At her 5 feet 5-1/2 inches, her ideal body weight is 149 pounds. Her highest weight was 289 pounds. Today she comes in weighing 258 pounds from 266 pounds, 2 years ago. She has lost 31 pounds in 2 years. Body mass index is down from 47.5 down to 42.4. She is 109 pounds overweight. As a result of her morbid obesity, she has developed obstructive sleep apnea, diabetes type 2, hypertensive heart disease, and diffuse osteoarthritis. A second-generation bariatric consent form was described in detail including the possibility of small bowel obstruction, protein malnutrition, leaks, gastrojejunal stricture, venous thrombosis, need for further surgery for which she demonstrated understanding. Benefits and risks of the procedure were described at length. Informed consent was obtained. DESCRIPTION: The patient was brought into the operating room theater. She was placed supine. She had received Lovenox subcutaneously for DVT prophylaxis. Additionally she Peridex oral solution as an oral decontaminant was placed per anesthesia. After general induction, the abdomen was prepped and draped in standard sterile fashion. Ioban draping was placed along the abdomen. A robotic da Eli Xi system was prepped and primed. The xiphoid to umbilicus was measured of 16 cm. Incisions were proposed at 15 cm from the xiphoid. Proposed port sites were marked with indelible marker along the anterior axillary line bilaterally, mid clavicular line bilaterally with each port marked 10 cm from each other. The robotic stapler port was marked for the right midclavicular line including along the left midclavicular line. A 5 mm 0 degrees laparoscopic trocar entry was performed along the left upper quadrant. The abdomen was insufflated to 15 mmHg pressure, which she tolerated well. Diagnostic laparoscopy demonstrated no injury to bowel, viscera, or mesentery. The liver was smooth and unremarkable. No large recurrent diaphragmatic hiatal hernia was identified. Separately, incarcerated with omental fat recurrent umbilical hernia was identified and undisturbed during her procedure. An 8 mm camera port was placed left lateral to the umbilicus at the epigastrium, 15 cm distal to the xiphoid. Next, 12-mm robot stapler port was placed along the right mid abdomen. An 12 mm port was exchanged along the left upper quadrant. An 8 mm port was placed on the left lateral abdominal wall under direct visualization Please note that the ports were placed 18 to 20 cm away from the target anatomy of the stomach. Care was taken to check that each robotic arm was safely away from collision with the bed or the patient. At the epigastrium, a medium sized Kaelyn liver retractor was placed under direct visualization with the [employer] placed under the right shoulder of the patient. The patient was repositioned in reverse Trendelenburg position at 20-degrees after lowering the bed. The robot was docked over the patient. Using grasper for arm 3, a grasper for arm 1, including vessel sealer for arm 4, the robotic system was docked and primed as described. Instruments were interchanged by the conference assistant including endoscissors, the needle stunt driver, and stapler. I had sat at the console. Next, the transverse mesocolon was reflected into the upper abdomen after dividing the mesentery and preparing for the jejunojejunostomy portion of the case. The ligament of Treitz was identified and measured 60 cm antegrade and marked using 3-0 Silk. The jejunum was divided at the 60 cm point using 60-mm white loads above the suture measurement. The biliopancreatic limb was held in place. The Blank limb was measured 100 cm in an antegrade fashion to avoid tension along the proposed gastrojejunal anastomosis. At 100 cm along the anti-mesenteric border of the Blank limb, a jejunojejunostomy was proposed whereby enterotomies were created along the biliopancreatic limb including the Blank limb using a Bovie cautery. A stay suture of 3-0 Slik was placed to align and create the anastomosis. The enterotomies along the anti-mesenteric borders were created followed by unidirectional fire from the patient's right side using 60 mm blue load Smart technology robotic stapler. The jejunojejunostomy was found to be hemostatic. The enterotomy was closed after horizontal mattress stitch of 3-0 silk used to elevate the enterotomy followed by closure with the robotic stapler blue load. The jejunal limb was temporarily tacked along the left upper quadrant. Attention was now brought to the creation of the gastrojejunostomy. Mild adhesions at the hiatus were identified from her previous hiatal hernia surgery. No large recurrent hiatal hernia was identified. Adhesions were taken down using vessel sealer. Along the lesser curvature of the stomach between the second and third veins, dissection was made along the retrogastric space to allow first firing of the robotic staple. Blue loads of 60 mm staplers were used to divide the stomach to create the gastric pouch. The patient was then prepared for placement of a Orvil. The patient was Mallampati 3. A 25-mm Orvil was selected for placement by the nurse certification technician. The Orvil tubing was placed anterior to the staple line of the gastric pouch and brought out through the left inferior lateral port. I re-scrubbed into the case. The robotic arms were temporarily undocked. The Orvil was then carefully and successfully navigated with the help of the nurse certification technician into the gastric pouch. The sutures were identified and divided. The tubing was from the 25 mm anvil. As the Orvil had been placed, the blind jejunal limb was brought proximally into the upper abdomen. No torsion was found upon the Blank limb. No tension was identified as the limb was brought along the upper abdomen. The blind jejunal limb was previously opened using endo-scissors with cautery. The 25-mm EEA stapler was brought through the left anterior lateral port site from the left side. The EEA stapler was brought through the open jejunal limb and its needle was deployed at the antimesenteric border where the anvil were mated for approximately 1 minute upon firing. The stapler was removed after irrigating the shaft of the instrument with warm normal saline. Donuts were found to be intact and on both sides. The [employer] Xi robot arms were then re-docked. I sat at the console. The open jejunal limb defect was closed using 60 mm white loads after releasing any tension from the blind jejunal limb. Care was taken to avoid any long blind limb to avoid candycane syndrome. Reinforcement sutures were placed along the gastrojejunal anastomosis and placed along the 9:00 and 3 o'clock position using 3-0 Vicryl. The Hodge and jejunojejunostomy mesenteric defects were closed using 2-0 VLOC. I then went to the head of the bed to perform the esophagogastrojejunoscopy and a leak test. An Olympus gastroscope was passed along the posterior oropharynx which was unremarkable for any injury to the vocal cords. The scope was passed down to the proximal portion of the pouch, whereby no active bleeding was encountered. Excellent visualization of the gastrojejunostomy anastomosis, including the Blank limb was encountered with endoscopic image obtained. The anastomosis was found to be patent. The gastrointestinal tract was desufflated. No evidence of intraoperative leak was encountered as the gastric pouch and anastomosis were submerged under normal saline solution. The robot was then undocked. I then went back to the bedside of the patient, whereby with coordinated effort of the conference assistant, irrigation was aspirated from the upper abdominal cavity. Tisseel was placed circumferentially over the anastomosis of the gastrojejunostomy. The fascial defect of the EEA stapler was closed using Irvin Huertas and 0 Vicryl. All instruments and pneumoperitoneum were evacuated from the abdominal cavity. The port correlating with the EEA stapler device was cleansed with normal saline solution and hydrogen peroxide. The rest of incisions were reapproximated using 4-0 Monocryl in an interrupted subcuticular fashion. Local anesthetic was infiltrated along the skin for postop analgesia. Liquid glue was applied to the skin. OptiFoam dressing was placed along the EEA stapler site. At the end of the procedure, needle, sponge and instrument count had been verified correct by the composite bond technician. He had tolerated the procedure well and was extubated and taken to the postanesthesia unit in stable condition. Intraoperative findings were described to the patient's family who were very pleased with the level of care. Total console time 98 minutes Operative Findings: 1. Biliopancreatic limb 60 cm 2. Bypass performed using 100 cm blank limb secondary to avoid increased tension at 150 cm. 3. Baldwin defect and jejunojejunostomy defect closed using 2-0 VLOC . 4. Leak test negative with gastrojejunal anastomosis patent and hemostatic. 5. Reinforcement sutures were placed along the gastrojejunal anastomosis 6. No fatty liver disease or hepatomegaly' 7. No large recurrent hiatal hernia
[2019-01-17] MEDS ORDERED: ACETAMINOPHEN IV (For NPO) 1,000 MG in EMPTY BAG 1 BAG IVPB ONE (15:00)
[2019-01-17] MEDS: ALBUTEROL NEBULIZED 2.5 MG/3 ML INHALATION SCH ×2 (15:35→19:14)
[2019-01-17] MEDS: HYDROmorphone 1 MG/ML 1 ML SYRINGE IVP PRN ×3 (15:58→23:34)
[2019-01-17] MEDS: SIMETHICONE 40 MG/0.6 ML DROPS 2,000 MG/30 ML BOTTLE PO SCH ×2 (16:35→23:34)
[2019-01-17 16:42] LABS: Glucose,Whole Blood 143 mg/dL (75-99)
[2019-01-17] MEDS: 0.9% NACL WITH KCL 20 MEQ/L 1,000 ML IV SCH ×2 (18:05→23:34)
[2019-01-17] MEDS: INSULIN ASPART (NovoLOG) 100 UNIT/ML VIAL SQ SCH ×2 (18:59→23:40)
[2019-01-17 23:32] LABS: Glucose,Whole Blood 131 mg/dL (75-99)
[2019-01-18] MEDS: HYDROmorphone 1 MG/ML 1 ML SYRINGE IVP PRN ×2 (04:25→08:24)
[2019-01-18] MEDS: SIMETHICONE 40 MG/0.6 ML DROPS 2,000 MG/30 ML BOTTLE PO SCH ×2 (05:39→12:51)
[2019-01-18 05:41] LABS: Glucose,Whole Blood 116 mg/dL (75-99)
[2019-01-18] MEDS: 0.9% NACL WITH KCL 20 MEQ/L 1,000 ML IV SCH (05:42)
[2019-01-18] MEDS: INSULIN ASPART (NovoLOG) 100 UNIT/ML VIAL SQ SCH ×2 (05:43→12:13)
[2019-01-18 06:59] LABS: Basophils % (A) 0 %; Eosinophils % (A) 0 %; HCT 37.2 % (34.0-46.0); Lymphocytes # (A) 0.9 k/uL (1.0-4.8); Lymphocytes % (A) 11 %; MCH 26.6 pg (25.0-35.0); MCHC 32.3 g/dL (31.0-37.0); MCV 82.3 fL (80.0-100.0); Mean Platelet Volume 7.6; Monocytes # (A) 0.2 k/uL (0-1.0); Monocytes % (A) 3 %; Neutrophils # (A) 6.8 k/uL (1.3-7.7); Neutrophils % (A) 84 %; Platelet Count 204 k/uL (150-450); RBC 4.52 m/uL (3.80-5.40); RDW 14.5 % (11.5-15.5); WBC 8.1 k/uL (3.8-10.6)
[2019-01-18 07:17] LABS: African American GFR (CKD) >90 (>60 ml/min/1.73 sqM); Anion Gap 6 mmol/L; Blood Urea Nitrogen 8 mg/dL (7-17); Calcium 8.5 mg/dL (8.4-10.2); Carbon Dioxide 28 mmol/L (22-30); Chloride 107 mmol/L (98-107); Magnesium 1.8 mg/dL (1.6-2.3); Non-African American GFR(CKD) >90 (>60 ml/min/1.73 sqM); Phosphorus 3.2 mg/dL (2.5-4.5); Potassium 4.4 mmol/L (3.5-5.1); Sodium 141 mmol/L (137-145)
[2019-01-18] MEDS ORDERED: 0.9% NACL WITH KCL 20 MEQ/L 1,000 ML IV SCH (08:00)
[2019-01-18] MEDS: ALBUTEROL NEBULIZED 2.5 MG/3 ML INHALATION SCH ×2 (08:03→12:37)
[2019-01-18 08:21] VITALS: BP 136/81; PULSE 105; RESP 16; TEMP 98.3
[2019-01-18] MEDS: ONDANSETRON 4 MG/2 ML VIAL IVP SCH ×2 (08:25→12:13)
[2019-01-18] MEDS ORDERED: PANTOPRAZOLE 40 MG/10 ML VIAL IV SCH (09:00)
[2019-01-18] MEDS ORDERED: LORATADINE 10 MG TAB PO SCH (09:00)
[2019-01-18] MEDS ORDERED: ENOXAPARIN 40 MG/0.4 ML SYRINGE SQ SCH (09:00)
[2019-01-18] MEDS ORDERED: amLODIPine 10 MG TAB PO SCH (09:00)
[2019-01-18 10:19] VITALS: BMI 41.0
[2019-01-18 11:46] LABS: Glucose,Whole Blood 117 mg/dL (75-99)
--- NOTE | 2019-01-18 14:14 | P.DS ---
<Ana Faria - Last Filed: 01/18/19 14:04> Providers Expected date of discharge: 01/18/19 Hospital Course: 68-year-old female who underwent robotic-assisted laparoscopic Gabi-en-Y gastric bypass with Dr. Trujillo on 01/17/2019. Patient is doing well postoperatively without any immediate complications. Pain is controlled oral medications. She is tolerating clear liquid diet. Vital signs are stable. She is stable for discharge home today. Please see EMR for further hospital course details. Discharge Diagnosis 1. Morbid obesity due to excess calories. 2. Body mass index reduced from 47.5 down to 42.4. 3. Family history of morbid obesity. 4. Osteoarthritis of bilateral knees. 5. Osteoarthritis of bilateral ankles. 6. 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 7. Gastroesophageal reflux disease. 8. Chronic panniculitis. 9. Hypertensive heart disease. 10. Iron deficiency anemia. 11. Diabetes, type 2. 12. Obstructive sleep apnea. 13. Hypercholesterolemia. 14. Vitamin D deficiency. 15. Hypothyroidism. 16. Restless leg syndrome. 17. Panniculitis. Nurse practitioner note has been reviewed by physician. Signing provider agrees with the documented findings, assessment, and plan of care. Plan - Discharge Summary Discharge Rx Participant: Yes New Discharge Prescriptions: New Bisacodyl [Dulcolax] 5 mg PO DAILY PRN #10 tablet.dr MORRISONN Reason: Constipation Simethicone 40 mg/0.6 ml Drops [Mylicon Drops] 40 mg PO PCHS PRN #30 ml PRN Reason: gas HYDROcodone/APAP [[place] Elixir 7.5-325Mg/15Ml] 15 ml PO Q6HR PRN 3 Days #180 ml PRN Reason: Pain Ondansetron Odt [Zofran Odt] 4 mg PO Q8HR PRN #9 tab PRN Reason: Nausea Acetaminophen Oral Susp [Tylenol Oral Susp] 650 mg PO Q4H PRN #200 ml PRN Reason: Pain Continue Levothyroxine Sodium [Synthroid] 50 mcg PO DAILY Omeprazole 40 mg PO DAILY Cetirizine HCl [Zyrtec] 10 mg PO DAILY Pramipexole Di-HCl [Mirapex] 3 mg PO HS amLODIPine [Norvasc] 10 mg PO DAILY Nystatin 100,000 Unit/gm Powd [Mycostatin Powder] 1 applic TOPICAL BID PRN PRN Reason: Skin Irritation Discontinued Ergocalciferol [Vitamin D2 (DRISDOL)] 50,000 unit PO MO metFORMIN HCL [Glucophage] 500 mg PO BID Meloxicam [Mobic] 15 mg PO DAILY Furosemide [Lasix] 20 mg PO BID Multivitamins, Thera [Multivitamin (formulary)] 1 tab PO DAILY Potassium Chloride 10 meq PO BID Discharge Medication List Levothyroxine Sodium [Synthroid] 50 mcg PO DAILY 11/30/18 [History] Omeprazole 40 mg PO DAILY 11/30/18 [History] Cetirizine HCl [Zyrtec] 10 mg PO DAILY 12/13/18 [History] Pramipexole Di-HCl [Mirapex] 3 mg PO HS 12/13/18 [History] Nystatin 100,000 Unit/gm Powd [Mycostatin Powder] 1 applic TOPICAL BID PRN [History] amLODIPine [Norvasc] 10 mg PO DAILY 12/24/18 [History] Acetaminophen Oral Susp [Tylenol Oral Susp] 650 mg PO Q4H PRN #200 ml 01/18/19 [Rx] Bisacodyl [Dulcolax] 5 mg PO DAILY PRN #10 tablet. 01/18/19 [Rx] HYDROcodone/APAP [[place] Elixir 7.5-325Mg/15Ml] 15 ml PO Q6HR PRN 3 Days #180 ml 01/18/19 [Rx] Ondansetron Odt [Zofran Odt] 4 mg PO Q8HR PRN #9 tab 01/18/19 [Rx] Simethicone 40 mg/0.6 ml Drops [Mylicon Drops] 40 mg PO PCHS PRN #30 ml 01/18/19 [Rx] [facility]Ref[place]21[facility]19 10:00 am Patient Instructions/Handouts: Gabi-en-Y Gastric Bypass (DC) Activity/Diet/Wound Care/Special Instructions: Only take [place] if you have severe pain. Otherwise, use Tylenol for pain management No lifting over 4 pounds for 4 weeks. You may shower. No bathtub soaks. Dressings will be removed by your doctor in office Drinks 64 ounces of fluid daily. Notify the bariatric Center for temperature over 101.0, increased pain, or drainage from incisions No straws or carbonated beverages. Liquid diet only. Sugar content to be less than 6 g to avoid dumping syndrome You may take milk of magnesia for constipation Crush, open, or cut tablets larger than the size of a tic tac Discharge Disposition: HOME SELF-CARE <Alexia Trujillo - Last Filed: 01/18/19 23:24> Providers Date of admission: 01/17/19 09:30 Attending physician: Alexia Trujillo Primary care physician: [facility] Hospital Course: As above, follow up in bariatric center in 2 to 3 days.
[2019-01-18 14:56] LABS: Hemoglobin A1C 7.2 % (4.0-6.0)
[2019-01-19] MEDS ORDERED: BISACODYL 5 MG TABLET.DR PO PRN (08:00)
== END 2019-01-18 15:38 | disposition home or self-care (01) | DRG 621 ==
LOC: 2ORMAIN 09:30 → 4SSUR 14:08
PROVIDERS: ADMIT Surgery Plastic and Reconstructive Surgery; ATTEND Surgery Plastic and Reconstructive Surgery
PROC: 8E0W4CZ Robotic Assisted Procedure of Trunk Region, Percutaneous Endoscopic Approach (ICD-10-PCS; 2019-01-17)
PROC: 0DJ08ZZ Inspection of Upper Intestinal Tract, Via Natural or Artificial Opening Endoscopic (ICD-10-PCS; 2019-01-17)
PROC: 0D164ZA Bypass Stomach to Jejunum, Percutaneous Endoscopic Approach (ICD-10-PCS; principal; 2019-01-17 11:00)
DX: E66.01 Morbid (severe) obesity due to excess calories (principal); Z68.41 Body mass index [BMI] 40.0-44.9, adult; D50.9 Iron deficiency anemia, unspecified; E03.9 Hypothyroidism, unspecified; E11.9 Type 2 diabetes mellitus without complications; E55.9 Vitamin D deficiency, unspecified; E78.00 Pure hypercholesterolemia, unspecified; G25.81 Restless legs syndrome; G47.33 Obstructive sleep apnea (adult) (pediatric); Z99.89 Dependence on other enabling machines and devices; I11.9 Hypertensive heart disease without heart failure; K21.9 Gastro-esophageal reflux disease without esophagitis; M17.0 Bilateral primary osteoarthritis of knee; M19.071 Primary osteoarthritis, right ankle and foot; M19.072 Primary osteoarthritis, left ankle and foot; M47.9 Spondylosis, unspecified; M79.3 Panniculitis, unspecified; Z79.1 Long term (current) use of non-steroidal anti-inflammatories (NSAID); Z79.84 Long term (current) use of oral hypoglycemic drugs; Z79.890 Hormone replacement therapy; Z79.899 Other long term (current) drug therapy; Z82.49 Family history of ischemic heart disease and other diseases of the circulatory system; Z83.3 Family history of diabetes mellitus; Z82.61 Family history of arthritis; Z87.891 Personal history of nicotine dependence; Z96.653 Presence of artificial knee joint, bilateral; Z90.49 Acquired absence of other specified parts of digestive tract; Z88.8 Allergy status to other drugs, medicaments and biological substances
CPT/HCPCS: 80051; 82310; 82565; 83036; 83735; 84100; 84520; 85025; 86850; 86900; 86901; 94640; 94760; 94762

== ENCOUNTER 2019-01-19 16:11 | Emergency (ER) | payer MEDICARE ==
[2019-01-19] MEDS ORDERED: PANTOPRAZOLE 40 MG/10 ML VIAL IVP STA (16:27)
[2019-01-19] MEDS ORDERED: SODIUM CHLORIDE 0.9% 1,000 ML IV STA (16:27)
[2019-01-19] MEDS ORDERED: diphenhydrAMINE 50 MG/ML 1 ML VIAL IVP STA (16:28)
--- NOTE | 2019-01-19 16:32 | ED ---
General Adult HPI - General Chief complaint: Nausea/Vomiting/Diarrhea Stated complaint: nausea, vomiting Time Seen by Provider: 01/19/19 16:15 Source: patient, family, RN/MD, RN notes reviewed Mode of arrival: wheelchair Limitations: no limitations - History of Present Illness Initial comments: Patient is a pleasant 68-year-old female presenting to the emergency department with complaints of nausea and vomiting. Onset of symptoms was last night. Pat ient has vomited a proximal he 5 or 6 times. Patient still has continued nausea. Patient has had a couple episodes of minimal diarrhea. Patient has some abdominal discomfort however states it is mild and consistent with what she would expect postoperatively. Patient did go to [facility] and was given Zofran and fluids and Decadron and scopolamine patch without improvement of symptoms. Gastric bypass, Gabi-en-Y surgery done 2 days ago and was just discharged yesterday. - Related Data Home Medications Medication Instructions Recorded Confirmed Levothyroxine Sodium [Synthroid] 50 mcg PO DAILY 11/30/18 01/17/19 Omeprazole 40 mg PO DAILY 11/30/18 01/17/19 Cetirizine HCl [Zyrtec] 10 mg PO DAILY 12/13/18 01/17/19 Pramipexole Di-HCl [Mirapex] 3 mg PO HS 12/13/18 01/17/19 Nystatin 100,000 Unit/gm Powd 1 applic TOPICAL BID PRN 12/24/18 01/17/19 [Mycostatin Powder] amLODIPine [Norvasc] 10 mg PO DAILY 12/24/18 01/17/19 Previous Rx's Medication Instructions Recorded Acetaminophen Oral Susp [Tylenol 650 mg PO Q4H PRN #200 ml 01/18/19 Oral Susp] Bisacodyl [Dulcolax] 5 mg PO DAILY PRN #10 tablet. 01/18/19 HYDROcodone/APAP [[place] Elixir 15 ml PO Q6HR PRN 3 Days #180 ml 01/18/19 7.5-325Mg/15Ml] Ondansetron Odt [Zofran Odt] 4 mg PO Q8HR PRN #9 tab 01/18/19 Simethicone 40 mg/0.6 ml Drops 40 mg PO PCHS PRN #30 ml 01/18/19 [Mylicon Drops] Allergies Allergy/AdvReac Type Severity Reaction Status Date / Time VINICIO Inhibitors Allergy angioedema Verified 01/19/19 16:14 ARB-Angiotensin Receptor Allergy angioedema Verified 01/19/19 16:14 Antagonist Review of Systems ROS Statement: Those systems with pertinent positive or pertinent negative responses have been documented in the HPI. ROS Other: All systems not noted in ROS Statement are negative. Constitutional: Denies: fever Eyes: Denies: eye pain ENT: Denies: ear pain Respiratory: Denies: cough, dyspnea Cardiovascular: Denies: chest pain Endocrine: Denies: fatigue Gastrointestinal: Reports: as per HPI, nausea, vomiting Genitourinary: Denies: dysuria Musculoskeletal: Denies: back pain Skin: Denies: rash Neurological: Denies: weakness Past Medical History Past Medical History: GERD/Reflux, Hypertension, Osteoarthritis (OA) Additional Past Medical History / Comment(s): patient states that she has a 20% reduction in breathing/lung capacity as of March 2016, Water retention, restless leg syndrome, hiatal hernia dx in March 2016, LEFT KNEE IS "BONE ON BONE" patient completed series of 3 Symvis injections in March 2016 (after cortisone failed) History of Any Multi-Drug Resistant Organisms: None Reported Past Surgical History: Cholecystectomy, Hernia Repair, Joint Replacement, Orthopedic Surgery, Tonsillectomy Additional Past Surgical History / Comment(s): Inguinal HERNIA REPAIR X7,1 umbilical hernia, RT TOT KNEE,BLADDER SURGERY,LT FOOT SURGERY, FUSIONS TO 2ND DIGITS OF LEFT HAND, RT HAND HAS METAL PLATE (NOT FUSION) IN DIGIT 2, EYELID LIFT, Gastric bypass Past Anesthesia/Blood Transfusion Reactions: Postoperative Nausea & Vomiting (PONV) Additional Past Anesthesia/Blood Transfusion Reaction / Comment(s): NO HX OF TRANSFUSION Past Psychological History: No Psychological Hx Reported Smoking Status: Former smoker Past Alcohol Use History: None Reported Past Drug Use History: None Reported - Past Family History Father Family Medical History: Hypertension, Osteoarthritis (OA) Additional Family Medical History / Comment(s): FROM HEART ISSUES AT AGE 86 Mother Family Medical History: Cancer, Hypertension, Osteoarthritis (OA) Additional Family Medical History / Comment(s): CANCEROUS TUMOR IN LUNG (NOT LUNG CANCER PER PATIENT), AT AGE 80 FROM HEART ATTACK General Exam Limitations: no limitations General appearance: alert, in no apparent distress Head exam: Present: normocephalic Eye exam: Present: normal appearance, PERRL ENT exam: Present: normal oropharynx Neck exam: Present: normal inspection Respiratory exam: Present: normal lung sounds bilaterally Cardiovascular Exam: Present: tachycardia GI/Abdominal exam: Present: soft, tenderness (Mild diffuse tenderness consistent with recent postoperative state). Absent: distended Extremities exam: Present: normal inspection. Absent: calf tenderness Neurological exam: Present: alert Psychiatric exam: Present: normal affect, normal mood Skin exam: Present: normal color Course Vital Signs 01/19/19 16:11 Temperature 98.7 F Pulse Rate 111 H Respiratory 20 Rate Blood Pressure 159/95 O2 Sat by Pulse 98 Oximetry - Reevaluation(s) Reevaluation #1: 01/19/19 17:34 Patient reevaluated and somewhat improved. 01/19/19 17:[address] Gonzales in the operating room who will come evaluate patient. Medical Decision Making - Medical Decision Making Patient was seen by Dr. Gonzales. Patient is feeling much better and requesting discharge home. Patient was also reevaluated twice by myself. Patient is updated on results and need for follow-up. Dr. Gonzales requests urine culture and this has arty been ordered. She'll follow-up on this prior to deciding if treatment is needed for questionable urinary changes. - Lab Data Result diagrams: 01/19/19 16:30 01/19/19 16:30 Lab Results 01/19/19 01/19/19 01/19/19 Range/Units 16:30 16:30 17:05 WBC 8.5 (3.8-10.6) k/uL RBC 4.18 (3.80-5.40) m/uL Hgb 11.4 (11.4-16.0) gm/dL Hct 34.5 (34.0-46.0) % MCV 82.5 (80.0-100.0) fL MCH 27.3 (25.0-35.0) pg MCHC 33.1 (31.0-37.0) g/dL RDW 14.4 (11.5-15.5) % Plt Count 233 (150-450) k/uL Neutrophils % 80 % Lymphocytes % 12 % Monocytes % 2 % Eosinophils % 5 % Basophils % 0 % Neutrophils # 6.8 (1.3-7.7) k/uL Lymphocytes # 1.0 (1.0-4.8) k/uL Monocytes # 0.2 (0-1.0) k/uL Eosinophils # 0.4 (0-0.7) k/uL Basophils # 0.0 (0-0.2) k/uL Sodium 140 (137-145) mmol/L Potassium 4.1 (3.5-5.1) mmol/L Chloride 106 (98-107) mmol/L Carbon Dioxide 24 (22-30) mmol/L Anion Gap 10 mmol/L BUN 7 (7-17) mg/dL Creatinine 0.38 L (0.52-1.04) mg/dL Est GFR (CKD-EPI)AfAm >90 (>60 ml/min/1.73 sqM) Est GFR (CKD-EPI)NonAf >90 (>60 ml/min/1.73 sqM) Glucose 120 H (74-99) mg/dL Calcium 8.4 (8.4-10.2) mg/dL Total Bilirubin 0.4 (0.2-1.3) mg/dL AST 67 H (14-36) U/L ALT 199 H (9-52) U/L Alkaline Phosphatase 115 (38-126) U/L Total Protein 5.6 L (6.3-8.2) g/dL Albumin 3.0 L (3.5-5.0) g/dL Amylase <30 L (30-110) U/L Lipase 20 L (23-300) U/L Urine Color Light Yellow Urine Appearance Clear (Clear) Urine pH 5.5 (5.0-8.0) Ur Specific [place] 1.010 (1.001-1.035) Urine Protein Negative (Negative) Urine Glucose (UA) Negative (Negative) Urine Ketones 4+ H (Negative) Urine Blood Trace H (Negative) Urine Nitrite Negative (Negative) Urine Bilirubin Negative (Negative) Urine Urobilinogen <2.0 (<2.0) mg/dL Ur Leukocyte Esterase Large H (Negative) Urine RBC 1 (0-5) /hpf Urine WBC 29 H (0-5) /hpf Ur Squamous Epith Cells 1 (0-4) /hpf Urine Bacteria Occasional H (None) /hpf Urine Mucus Rare H (None) /hpf - Radiology Data Radiology results: image reviewed (Chest x-ray is limited. Hypoventilatory exam. Cannot rule out underlying pulmonary venous congestion. Some patchy left basilar opacity could represent atelectasis or early infiltrate.) Disposition Clinical Impression: Vomiting Disposition: HOME SELF-CARE Condition: Stable Instructions (If sedation given, give patient instructions): Acute Nausea and Vomiting (ED) Additional Instructions: Please follow-up with Dr. Gonzales's couple of days as directed by . Lydia as needed. Return for increased pain, fevers, uncontrolled vomiting, worsening symptoms or any other concerns. Please have Dr. Gonzales follow-up with urine culture. Also follow-up with your primary care physician. Is patient prescribed a controlled substance at d/c from ED?: No Referrals: Alexia Trujillo MD [STAFF PHYSICIAN] - 1-2 days Sajan Patel MD [Primary Care Provider] - 1-2 days Time of Disposition: 18:40
[2019-01-19 16:46] LABS: Basophils % (A) 0 %; Eosinophils # (A) 0.4 k/uL (0-0.7); Eosinophils % (A) 5 %; HCT 34.5 % (34.0-46.0); HGB 11.4 gm/dL (11.4-16.0); Lymphocytes % (A) 12 %; MCH 27.3 pg (25.0-35.0); MCHC 33.1 g/dL (31.0-37.0); MCV 82.5 fL (80.0-100.0); Mean Platelet Volume 7.2; Monocytes # (A) 0.2 k/uL (0-1.0); Monocytes % (A) 2 %; Neutrophils # (A) 6.8 k/uL (1.3-7.7); Neutrophils % (A) 80 %; Platelet Count 233 k/uL (150-450); RBC 4.18 m/uL (3.80-5.40); RDW 14.4 % (11.5-15.5); WBC 8.5 k/uL (3.8-10.6)
[2019-01-19 16:59] LABS: ALT 199 U/L (9-52); AST 67 U/L (14-36); African American GFR (CKD) >90 (>60 ml/min/1.73 sqM); Alkaline Phosphatase 115 U/L (38-126); Amylase <30 U/L (30-110); Anion Gap 10 mmol/L; Blood Urea Nitrogen 7 mg/dL (7-17); Calcium 8.4 mg/dL (8.4-10.2); Carbon Dioxide 24 mmol/L (22-30); Chloride 106 mmol/L (98-107); Glucose 120 mg/dL (74-99); Non-African American GFR(CKD) >90 (>60 ml/min/1.73 sqM); Potassium 4.1 mmol/L (3.5-5.1); Sodium 140 mmol/L (137-145); Total Bilirubin 0.4 mg/dL (0.2-1.3); Total Protein 5.6 g/dL (6.3-8.2)
--- NOTE | 2019-01-19 17:08 | XR ---
EXAMINATION TYPE: XR chest 2V DATE OF EXAM: 01/19/2019 COMPARISON: None HISTORY: 68-year-old female with abdominal pain TECHNIQUE: AP and lateral views FINDINGS: Reverse total shoulder arthroplasties partially visualized. Very low lung volumes with crowded vascul ar markings. Diffuse interstitial prominence. Patchy left basilar opacity. No sizable effusion. Heart likely borderline enlarged. IMPRESSION: Very limited, hypoventilatory exam. Correlate to exclude underlying pulmonary vascular congestion. So me patchy left basilar opacity could represent atelectasis or early infiltrate. The former is favored .
[2019-01-19 17:21] LABS: Appearance,Urine Clear (Clear); Bacteria,Urine Occasional /hpf; Bilirubin,Urine Negative (Negative); Blood,Urine Trace (Negative); Color,Urine Light Yellow; Glucose,Urine (UA) Negative (Negative); Ketones,Urine 4+ (Negative); Leukocyte Esterase,Urine Large (Negative); Mucus,Urine Rare /hpf; Nitrite,Urine Negative (Negative); PH, Urine 5.5 (5.0-8.0); Protein,Urine Negative (Negative); RBC,Urine 1 /hpf (0-5); Squamous Epithelial Cell,Urine 1 /hpf (0-4); Urobilinogen,Urine <2.0 mg/dL (<2.0)
[2019-01-19 19:06] VITALS: BP 145/89; PULSE 101; RESP 18; TEMP 98.8
--- NOTE | 2019-01-20 12:18 | P.PN ---
Subjective Progress Note Date: 01/19/19 DATE OF SERVICE: 01/19/2019 CHIEF COMPLAINT: Intractable nausea and vomiting HISTORY OF PRESENT ILLNESS: The patient is a 68-year-old female postop day 2 status post gastric bypass, uneventful. She reports yesterday doing quite well prior to discharge. She was tolerating liquids. Separately, she reports at 1:00 early this morning at least 8 hours following discharge, she had severe nausea. Despite trying to keep up with her fluid intake she had vomiting. She presented to the bariatric center earlier today on a nurse visit where she reports having a red popsicle. At the bariatric center, she had red emesis which is presumed to be hematemesis. As result of this finding, she was taken to the emergency room. She reports generalized weakness. Since being in the emergency room included in the bariatric Center, she had at least 3-1/2 L normal saline fluid boluses. She reports feeling much better after normal saline boluses. "It takes me a long time to get over anesthesia" per her report. No fevers or chills. No new chest pain. No productive sputum. She denies any burning or blood with urination. PAST MEDICAL HISTORY: 1. Gastroesophageal reflux disease. 2. Morbid obesity. 3. Osteoarthritis of the lower back. 4. Osteoarthritis of bilateral knees. 5. Osteoporosis of the ankles. 6. Hypertension. 7. Panniculitis. 8. Obstructive sleep apnea. PAST SURGICAL HISTORY: 1. Cholecystectomy. 2. Multiple bladder suspension surgeries. 3. Bilateral inguinal hernias. 4. Pinnings along the fingers. 5. Umbilical hernia repair. 6. Right total knee replacement x2. 7. Left foot surgery. 8. Tonsillectomy. 10. Upper endoscopy. 11. Robotic-assisted hiatal hernia repair July 2016. 12. Robotic-assisted gastric bypass 01/18/2019 MEDICATIONS: 1. Prilosec. 2. Benazepril/hydrochlorothiazide. ALLERGIES: DENIES. SOCIAL HISTORY: Denies any active tobacco use, however, she is a former tobacco user. FAMILY HISTORY: Pertinent for morbid obesity, hypertension, diabetes that run in her family. REVIEW OF SYSTEMS: CONSTITUTIONAL: At her 5 feet 5-1/2 inches, her ideal body weight is 149 pounds. Her highest weight was 289 pounds. Body mass index is down from 47.5 HEENT: Denies any troubles with vision or hearing. No reports of dysphagia. ENDOCRINE: Has thyroid disorder. Has diabetes. CARDIOVASCULAR: She has hypertension, for which she is on at least 2 different medications. She also had a previous cardiac catheterization performed in January of 2014 with findings of no evidence of pulmonary hypertension. Mild left ventricular hypertrophy was also identified. RESPIRATORY: Has obstructive sleep apnea. No recent pneumonias. GASTROINTESTINAL: Recent intractable nausea and vomiting with dehydration. MUSCULOSKELETAL: Has osteoarthritis of the bilateral hands, lower back, bilateral knees. NEURO: No reports of stroke or seizure disorder. PSYCH: No reports of depression or suicidal ideation. HEMATOLOGIC: Denies any easy bruising or bleeding. PHYSICAL EXAM: VITAL SIGNS: Reviewed CONSTITUTIONAL: Well developed and in no acute distress. EYES: Conjuctivae without sclera icterus. Extraocular movements grossly intact. HEAD, EARS, NOSE, THROAT: Moist buccal mucosa. Head is atraumatic, normocephalic. Hears conversational speech. No nasal drainage. NECK: Supple. No thyroidomegaly. RESPIRATORY: Non-labored respirations and equal bilateral excursions. CARDIOVASCULAR: Palpable 2+ radial pulses. ABDOMEN: Incisions clean dry and intact. Soft. No peritonitis. MUSCULOSKELETAL: No gross deformity of the lower extremities noted. No clubbing. No cyanosis. 2+ bilateral foot edema. SKIN: Good skin turgor. Well perfused. NEUROLOGIC: Cranial nerves I through XII grossly intact. No focal or lateralizing signs. PSYCH: Appropriate affect. Alert and oriented to person, place and time. CLINICAL LABS: White blood cell count normal. Urinalysis negative for nitrites and negative for leukocyte esterase ASSESSMENT: 1. Acute dehydration intractable nausea and vomiting PLAN: 1. Continue scopolamine patch. 2. Fluid intake over 64 ounces advised. She reports getting less than 10 pounds since his discharge home. 3. No clinical features of urinary tract infection Objective - Vital Signs Vital signs: Vital Signs Temp 98.8 F 01/19/19 19:02 Pulse 101 H 01/19/19 19:02 Resp 18 01/19/19 19:02 BP 145/89 01/19/19 19:02 Pulse Ox 94 L 01/19/19 19:02 Intake & Output 01/19/19 01/20/19 01/20/19 18:59 06:59 18:59 Weight 113.398 kg - Labs CBC & Chem 7: 01/19/19 16:30 01/19/19 16:30 Labs: Abnormal Lab Results - Last 24 Hours (Table) 01/19/19 01/19/19 Range/Units 16:30 17:05 Creatinine 0.38 L (0.52-1.04) mg/dL Glucose 120 H (74-99) mg/dL AST 67 H (14-36) U/L ALT 199 H (9-52) U/L Total Protein 5.6 L (6.3-8.2) g/dL Albumin 3.0 L (3.5-5.0) g/dL Amylase <30 L (30-110) U/L Lipase 20 L (23-300) U/L Urine Ketones 4+ H (Negative) Urine Blood Trace H (Negative) Ur Leukocyte Esterase Large H (Negative) Urine WBC 29 H (0-5) /hpf Urine Bacteria Occasional H (None) /hpf Urine Mucus Rare H (None) /hpf Microbiology - Last 24 Hours (Table) 01/19/19 17:05 Urine Culture - Preliminary Urine,Voided Assessment and Plan (1) Intractable nausea and vomiting Status: Acute Code(s): R11.2 - NAUSEA WITH VOMITING, UNSPECIFIED SNOMED Code(s): 665915102 (2) Postoperative nausea and vomiting Status: Acute Code(s): R11.2 - NAUSEA WITH VOMITING, UNSPECIFIED; Z98.890 - OTHER SPECIFIED POSTPROCEDURAL STATES SNOMED Code(s): 6397289 (3) Dehydration Status: Acute Code(s): E86.0 - DEHYDRATION SNOMED Code(s): 99987621
== END 2019-01-19 19:06 | disposition home or self-care (01) ==
LOC: EC 16:11
DX: R11.2 Nausea with vomiting, unspecified (principal); R19.7 Diarrhea, unspecified; K21.9 Gastro-esophageal reflux disease without esophagitis; I10 Essential (primary) hypertension; M19.90 Unspecified osteoarthritis, unspecified site; Z79.890 Hormone replacement therapy; Z79.899 Other long term (current) drug therapy; Z87.891 Personal history of nicotine dependence; Z98.84 Bariatric surgery status; Z88.8 Allergy status to other drugs, medicaments and biological substances; Z90.49 Acquired absence of other specified parts of digestive tract; Z87.19 Personal history of other diseases of the digestive system
CPT/HCPCS: 99284 ×2; 96374 ×2; 96375 ×3; 96361 ×4; 36415; 80053; 82150; 83690; 85025; 81001; 87086; 87077; 87186; 71046; 96360; J1200; J1100; J2405; C9113

== ENCOUNTER → 2019-01-19 | Outpatient (CLI) | payer MEDICARE ==
[~2019-01-19] MED LIST changes: -CHLORHEXIDINE GLUCONATE 15 ML CUP MUCOUS MEM ONE; -DEXAMETHASONE SOD PHOSPHATE 10 MG/ML 1 ML VIAL IV ONE; +DEXAMETHASONE SOD PHOSPHATE 10 MG/ML 1 ML VIAL IV STA; -ENOXAPARIN 40 MG/0.4 ML SYRINGE SQ ONE; -HYDROmorphone 0.5 MG/0.5 ML SYRINGE IVP PRN; -LIDOCAINE 1% 20 ML VIAL (10MG/ML) FOR IV START INTRADERMA PRN; -ONDANSETRON 4 MG/2 ML VIAL IVP ONE; +ONDANSETRON 4 MG/2 ML VIAL IVP STA; -PANTOPRAZOLE 40 MG/10 ML VIAL IV ONE; +SCOPOLAMINE 1.5MG/72HR PATCH TRANSDERM ONE; +SODIUM CHLORIDE 0.9% 500 ML 500 ML in EMPTY BAG 1 BAG IV PRN; -fentaNYL (PF) 50 MCG/ML 2 ML AMP IV PRN
[2019-01-19 13:29] VITALS: BP 155/89; PULSE 108; RESP 16; TEMP 98.2
[2019-01-19] MEDS: SODIUM CHLORIDE 0.9% 1,000 ML IV SCH ×2 (13:29→14:31)
== END ==
LOC: PROCWHC3 13:02
PROVIDERS: ATTEND Surgery Plastic and Reconstructive Surgery
DX: E86.0 Dehydration (principal)
CPT/HCPCS: 96360; 96361; 96375; J1100; J2405

== ENCOUNTER → 2019-01-21 | Outpatient (CLI) | payer MEDICARE ==
[~2019-01-21] MED LIST changes: -DEXAMETHASONE SOD PHOSPHATE 10 MG/ML 1 ML VIAL IV STA; -ONDANSETRON 4 MG/2 ML VIAL IVP STA; -SCOPOLAMINE 1.5MG/72HR PATCH TRANSDERM ONE; +SODIUM CHLORIDE 0.9% 1,000 ML IV ONE; -SODIUM CHLORIDE 0.9% 500 ML 500 ML in EMPTY BAG 1 BAG IV PRN
[2019-01-21 10:17] VITALS: BP 145/81; PULSE 91; RESP 18
--- NOTE | 2019-01-21 11:23 | P.PN ---
Subjective Progress Note Date: 01/21/19 DATE OF SERVICE: 01/21/2019 CHIEF COMPLAINT: Morbid obesity HISTORY OF PRESENT ILLNESS: Yamileth Jimenez is a 68-year-old female who is status post gastric bypass 01/17/19. She is POD 4. She reports feeling much better. She has no further nausea. She is tolerating liquids. Swelling in her legs has improved. Her blood pressure is stable without medications. She is status post fluid hydration 2 days ago of 3.5 liters of fluids. At her 5 feet 5-1/2 inches, her ideal body weight is 149 pounds. Her highest weight was 289 pounds. Today she comes in weighing 249 pounds from 274 pounds, 1 month ago. She has lost 25 pounds in 1 month. Body mass index is down from 47.5 down to 40.4. She has lost 40 pounds lifetime. Percent excess weight loss is 28%. PHYSICAL EXAM: VITAL SIGNS: 5 feet 5-1/2 inches, 249 pounds. Body mass index 40.4 Vital Signs Temp 98.2 F 01/21/19 11:34 Pulse 91 01/21/19 11:34 Resp 18 01/21/19 10:14 BP 145/81 01/21/19 11:34 Pulse Ox GENERAL: Well-developed female in no acute distress. HEENT: No sclerae icterus. Extraocular movements grossly intact. Moist buccal mucosa. NECK: Supple without lymphadenopathy. CHEST: Non-labored respirations with equal bilateral excursions. CARDIOVASCULAR: Tachycardia. 2+ palpable pulses. ABDOMEN: Protuberant, soft, nondistended. Dressing demonstrates no infection upon removal. MUSCULOSKELETAL: No clubbing, cyanosis or edema. NEURO: No focal or lateralizing signs. Cranial nerves 2 through 12 grossly within normal limits. PSYCH: Appropriate affect. Alert and oriented to person, place and time. SKIN: Has panniculitis. Well-perfused. Good skin turgor. ASSESSMENT: 1. Morbid obesity due to excess calories. 2. Body mass index reduced from 47.5 down to 40.4 3. Family history of morbid obesity. 4. Osteoarthritis of bilateral knees. 5. Osteoarthritis of bilateral ankles. 6. 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 7. Gastroesophageal reflux disease. 8. Chronic panniculitis. 9. Hypertensive heart disease. 10. Iron deficiency anemia. 11. Diabetes, type 2. 12. Obstructive sleep apnea.ia 13. Hypercholesterolemia. 14. Vitamin D deficiency. 15. Hypothyroidism. 16. Restless leg syndrome. 17. Panniculitis. 18. Supraventricular tachycardia 19. Diabetic gastroparesis 20. Recurrent hiatal hernia 21. Erosive esophagitis 22. Status post gastric bypass. 23. Severe post op nausea and vomiting PLAN: 1. Recommend discontinue diabetic medications for blood sugar glucose over 150. 2. Hold blood pressure medications. 3. Follow-up in 2 weeks. 4. Continue protein shakes at . 5. Recommend IV fluids for history of dehydration. Objective - Vital Signs Vital signs: Vital Signs Temp 98.3 F 01/21/19 10:14 Pulse 91 01/21/19 10:14 Resp 18 01/21/19 10:14 BP 145/81 01/21/19 10:14 Pulse Ox Intake & Output 01/20/19 01/21/19 01/21/19 18:59 06:59 18:59 Weight 113.398 kg
[2019-01-21 11:36] VITALS: TEMP 98.2; BMI 40.3
== END | disposition home or self-care (01) ==
LOC: BARWHC3 09:25
PROVIDERS: ATTEND Surgery Plastic and Reconstructive Surgery
DX: E66.01 Morbid (severe) obesity due to excess calories (principal); Z68.41 Body mass index [BMI] 40.0-44.9, adult; M17.0 Bilateral primary osteoarthritis of knee; M19.072 Primary osteoarthritis, left ankle and foot; M19.071 Primary osteoarthritis, right ankle and foot; M19.90 Unspecified osteoarthritis, unspecified site; K21.9 Gastro-esophageal reflux disease without esophagitis; M79.3 Panniculitis, unspecified; I50.9 Heart failure, unspecified; I11.0 Hypertensive heart disease with heart failure; D50.9 Iron deficiency anemia, unspecified; G47.33 Obstructive sleep apnea (adult) (pediatric); E78.00 Pure hypercholesterolemia, unspecified; E55.9 Vitamin D deficiency, unspecified; E03.9 Hypothyroidism, unspecified; G25.81 Restless legs syndrome; I47.1 Supraventricular tachycardia; E11.43 Type 2 diabetes mellitus with diabetic autonomic (poly)neuropathy; K31.84 Gastroparesis; K44.9 Diaphragmatic hernia without obstruction or gangrene; K22.10 Ulcer of esophagus without bleeding; R11.2 Nausea with vomiting, unspecified; R06.09 Other forms of dyspnea; E86.0 Dehydration; Z98.84 Bariatric surgery status
CPT/HCPCS: 97803; 96360; G0463; 99211

== ENCOUNTER → 2019-02-02 | Outpatient (CLI) | payer MEDICARE ==
--- NOTE | 2019-02-02 15:34 | P.PN ---
Subjective Progress Note Date: 02/02/19 DATE OF SERVICE: 02/02/2019 CHIEF COMPLAINT: Morbid obesity HISTORY OF PRESENT ILLNESS: Yamileth Jimenez is a 68-year-old female who is status post gastric bypass 01/17/19. She is 2 weeks out. She is no longer on blood sugar medications. She is off water pills. She is off her hypertension medications. No gastroesophageal reflux disease. She is off all medications. At her 5 feet 5-1/2 inches, her ideal body weight is 149 pounds. Her highest weight was 289 pounds. Today she comes in weighing 248 pounds from 249 pounds, 2 weeks ago. She has lost 1 pounds in 1 2 weeks. Body mass index is down from 47.5 down to 40.8. She has lost 41 pounds lifetime. Percent excess weight loss is 29%. PHYSICAL EXAM: VITAL SIGNS: 5 feet 5-1/2 inches, 248 pounds. Body mass index 40.8 Vital Signs Temp 97.8 F 02/02/19 16:14 Pulse 91 02/02/19 16:14 Resp BP 160/87 02/02/19 16:14 Pulse Ox GENERAL: Well-developed female in no acute distress. HEENT: No sclerae icterus. Extraocular movements grossly intact. Moist buccal mucosa. NECK: Supple without lymphadenopathy. CHEST: Non-labored respirations with equal bilateral excursions. CARDIOVASCULAR: Tachycardia. 2+ palpable pulses. ABDOMEN: Protuberant, soft, nondistended. Her incisions are doing well. MUSCULOSKELETAL: No clubbing, cyanosis or edema. NEURO: No focal or lateralizing signs. Cranial nerves 2 through 12 grossly within normal limits. PSYCH: Appropriate affect. Alert and oriented to person, place and time. SKIN: Has panniculitis. Well-perfused. Good skin turgor. ASSESSMENT: 1. Morbid obesity due to excess calories. 2. Body mass index reduced from 47.5 down to 40.8 3. Family history of morbid obesity. 4. Osteoarthritis of bilateral knees. 5. Osteoarthritis of bilateral ankles. 6. 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 7. Gastroesophageal reflux disease. 8. Chronic panniculitis. 9. Hypertensive heart disease. 10. Iron deficiency anemia. 11. Diabetes, type 2. 12. Obstructive sleep apnea. 13. Hypercholesterolemia. 14. Vitamin D deficiency. 15. Hypothyroidism. 16. Restless leg syndrome. 17. Panniculitis. 18. Supraventricular tachycardia 19. Diabetic gastroparesis 20. Recurrent hiatal hernia 21. Erosive esophagitis 22. Status post gastric bypass. 23. Severe post op nausea and vomiting PLAN: 1. Must start Omeprazole.
[2019-02-02 16:17] VITALS: BP 160/87; PULSE 91; TEMP 97.8; BMI 40.8
== END | disposition home or self-care (01) ==
LOC: BARWHC3 14:30
PROVIDERS: ATTEND Surgery Plastic and Reconstructive Surgery
DX: Z48.815 Encounter for surgical aftercare following surgery on the digestive system (principal); E66.01 Morbid (severe) obesity due to excess calories; Z68.41 Body mass index [BMI] 40.0-44.9, adult; M17.0 Bilateral primary osteoarthritis of knee; M19.072 Primary osteoarthritis, left ankle and foot; M19.071 Primary osteoarthritis, right ankle and foot; M47.816 Spondylosis without myelopathy or radiculopathy, lumbar region; K21.9 Gastro-esophageal reflux disease without esophagitis; M79.3 Panniculitis, unspecified; I11.9 Hypertensive heart disease without heart failure; D50.9 Iron deficiency anemia, unspecified; E11.9 Type 2 diabetes mellitus without complications; G47.33 Obstructive sleep apnea (adult) (pediatric); E78.00 Pure hypercholesterolemia, unspecified; E55.9 Vitamin D deficiency, unspecified; E03.9 Hypothyroidism, unspecified; G25.81 Restless legs syndrome; I47.1 Supraventricular tachycardia; K31.84 Gastroparesis; K44.9 Diaphragmatic hernia without obstruction or gangrene; R11.2 Nausea with vomiting, unspecified; K22.10 Ulcer of esophagus without bleeding
CPT/HCPCS: 99211

== ENCOUNTER → 2019-02-15 | Outpatient (CLI) | payer MEDICARE ==
[2019-02-15 10:18] LABS: HCT 34.8 % (34.0-46.0); HGB 10.8 gm/dL (11.4-16.0); Hypochromasia Slight; MCH 25.3 pg (25.0-35.0); MCHC 31.1 g/dL (31.0-37.0); MCV 81.3 fL (80.0-100.0); Platelet Count 180 k/uL (150-450); RBC 4.28 m/uL (3.80-5.40); RDW 14.4 % (11.5-15.5); WBC 5.5 k/uL (3.8-10.6)
[2019-02-15 10:30] LABS: INR 0.9 (<1.2); Partial Thromboplastin Time 25.8 sec (22.0-30.0); Prothrombin Time 10.2 sec (9.0-12.0)
[2019-02-15 17:19] LABS: Ferritin 27.7 ng/mL (10.0-291.0)
[2019-02-15 17:23] LABS: % Iron Saturation 5.25 (12.00-45.00); African American GFR (CKD) 110.1 (60.0-200.0); Albumin 3.8 g/dL (3.80-4.90); Albumin/Globulin Ratio 2.11 (1.60-3.17); Anion Gap 7.8 mmol/L (4.00-12.00); BUN/Creat Ratio 23.33 Ratio (12.00-20.00); Calcium 8.7 mg/dL (8.7-10.3); Carbon Dioxide 28.2 mmol/L (21.6-31.8); Chol/HDL Ratio 3.83; Folate, Serum 15.8 ng/mL; Globulin 1.8 g/dL (1.6-3.3); LDL Cholesterol,Calculated 76.8 mg/dL (0.0-131.0); Magnesium 2.1 mg/dL (1.5-2.4); Phosphorus 3.1 mg/dL (2.4-5.1); Potassium 3.7 mmol/L (3.5-5.5); Total Bilirubin 0.3 mg/dL (0.3-1.2); Total Protein 5.6 g/dL (6.2-8.2); VLDL Calculation 22.2 mg/dL (5.00-40.00)
[2019-02-15 19:37] LABS: Hemoglobin A1C 6.5 % (4.0-6.0)
[2019-02-17 06:43] LABS: Vitamin A 31 ug/dL (38-106)
[2019-02-17 12:55] LABS: Zinc, Serum 56 ug/dL (60-130)
== END | disposition home or self-care (01) ==
LOC: LABWHC1 09:23
PROVIDERS: ATTEND Surgery Plastic and Reconstructive Surgery
DX: E21.1 Secondary hyperparathyroidism, not elsewhere classified (principal); E89.1 Postprocedural hypoinsulinemia; D50.9 Iron deficiency anemia, unspecified; K90.9 Intestinal malabsorption, unspecified; E55.9 Vitamin D deficiency, unspecified; K74.1 Hepatic sclerosis; N19 Unspecified kidney failure; K50.90 Crohn's disease, unspecified, without complications; K90.89 Other intestinal malabsorption
CPT/HCPCS: 36415; 80053; 80061; 82306; 82525; 82607; 82728; 82746; 83036; 83540; 83550; 83735; 83970; 84100; 84134; 84255; 84425; 84443; 84590; 84630; 85027; 85610; 85730

== ENCOUNTER → 2019-02-16 | Outpatient (CLI) | payer MEDICARE ==
--- NOTE | 2019-02-16 15:10 | P.PN ---
Subjective Progress Note Date: 02/16/19 DATE OF SERVICE: 02/16/2019 CHIEF COMPLAINT: Morbid obesity HISTORY OF PRESENT ILLNESS: Yamileth Jimenez is a 68-year-old female who is status post gastric bypass 01/17/19. She is 1 month out. She has lost 20 pounds. She has no further gastroesophageal reflux disease since her bypass. Her protein intake 60+ grams daily. She reports occasional soreness. She has denies moderate abdominal pain. She is off blood pressure and diabetic medications. At her 5 feet 5-1/2 inches, her ideal body weight is 149 pounds. Her highest weight was 289 pounds. Today she comes in weighing 243 pounds form 248 pounds, 1 [id number]. She has lost 1 pounds in 1 week. Body mass index is down from 47.5 down to 40.0. She has lost 46 pounds lifetime. Percent excess weight loss is 33%. PHYSICAL EXAM: VITAL SIGNS: 5 feet 5-1/2 inches, 243 pounds. Body mass index 40.0 Vital Signs Temp 98.9 F 02/16/19 15:02 Pulse 94 02/16/19 15:02 Resp BP 143/85 02/16/19 15:02 Pulse Ox GENERAL: Well-developed female in no acute distress. HEENT: No sclerae icterus. Extraocular movements grossly intact. Moist buccal mucosa. NECK: Supple without lymphadenopathy. CHEST: Non-labored respirations with equal bilateral excursions. CARDIOVASCULAR: Regular rate and rhythm. 2+ palpable pulses. ABDOMEN: Protuberant, soft, nondistended. No hernia. MUSCULOSKELETAL: No clubbing, cyanosis or edema. NEURO: No focal or lateralizing signs. Cranial nerves 2 through 12 grossly within normal limits. PSYCH: Appropriate affect. Alert and oriented to person, place and time. SKIN: Has panniculitis. Well-perfused. Good skin turgor. ASSESSMENT: 1. Morbid obesity due to excess calories. 2. Body mass index reduced from 47.5 down to 40.0 3. Family history of morbid obesity. 4. Osteoarthritis of bilateral knees. 5. Osteoarthritis of bilateral ankles. 6. 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 7. Gastroesophageal reflux disease. 8. Chronic panniculitis. 9. Hypertensive heart disease. 10. Iron deficiency anemia. 11. Diabetes, type 2. 12. Obstructive sleep apnea. 13. Hypercholesterolemia. 14. Vitamin D deficiency. 15. Hypothyroidism. 16. Restless leg syndrome. 17. Panniculitis. 18. Supraventricular tachycardia 19. Diabetic gastroparesis 20. Recurrent hiatal hernia 21. Erosive esophagitis 22. Status post gastric bypass. 23. Iron deficiency anemia PLAN: 1. Recommend protein intake over 75 grams daily 2. Her bariatric labs were reviewed 3. Recommend iron infusion.
[2019-02-16 15:18] VITALS: BP 143/85; PULSE 94; TEMP 98.9; BMI 39.9
== END | disposition home or self-care (01) ==
LOC: BARWHC3 14:05
PROVIDERS: ATTEND Surgery Plastic and Reconstructive Surgery
DX: E66.01 Morbid (severe) obesity due to excess calories (principal); Z68.41 Body mass index [BMI] 40.0-44.9, adult; M17.0 Bilateral primary osteoarthritis of knee; M19.072 Primary osteoarthritis, left ankle and foot; M19.071 Primary osteoarthritis, right ankle and foot; K21.9 Gastro-esophageal reflux disease without esophagitis; M79.3 Panniculitis, unspecified; I11.9 Hypertensive heart disease without heart failure; D50.9 Iron deficiency anemia, unspecified; E11.9 Type 2 diabetes mellitus without complications; G47.33 Obstructive sleep apnea (adult) (pediatric); E78.00 Pure hypercholesterolemia, unspecified; E55.9 Vitamin D deficiency, unspecified; E03.9 Hypothyroidism, unspecified; G25.81 Restless legs syndrome; I47.1 Supraventricular tachycardia; K31.84 Gastroparesis; K44.9 Diaphragmatic hernia without obstruction or gangrene; K22.10 Ulcer of esophagus without bleeding; Z98.84 Bariatric surgery status
CPT/HCPCS: 97803; G0463; 99211

== ENCOUNTER → 2019-04-06 | Outpatient (CLI) | payer MEDICARE ==
[2019-04-06 13:54] VITALS: BP 163/93; PULSE 86; TEMP 98; BMI 38.3
--- NOTE | 2019-04-06 14:00 | P.PN ---
Subjective Progress Note Date: 04/06/19 DATE OF SERVICE: 04/06/2019 CHIEF COMPLAINT: Status post gastric bypass HISTORY OF PRESENT ILLNESS: Yamileth Jimenez is a 68-year-old female who is status post gastric bypass 01/17/19. She is almost 3 months out. She denies any gastroesophageal reflux disease. She reports hypertension. No reports of abdom inal pain. She denies dysphagia. Her protein intake is not being recorded. Her bowel movements are okay. She is off omeprazole. At her 5 feet 5-1/2 inches, her ideal body weight is 149 pounds. Her highest weight was 289 pounds. Today she comes in weighing 234 pounds from 243 pounds, 2 months ago. She has lost 10 pounds in 2 months. Body mass index is down from 47.5 down to 38.3. She has lost 55 pounds lifetime. Percent excess weight loss is 40 %. PHYSICAL EXAM: VITAL SIGNS: 5 feet 5-1/2 inches, 234 pounds. Body mass index 38.3 Vital Signs Temp 98.0 F 04/06/19 13:46 Pulse 86 04/06/19 13:46 Resp BP 163/93 04/06/19 13:46 Pulse Ox GENERAL: Well-developed female in no acute distress. HEENT: No sclerae icterus. Extraocular movements grossly intact. Moist buccal mucosa. NECK: Supple without lymphadenopathy. CHEST: Non-labored respirations with equal bilateral excursions. CARDIOVASCULAR: Regular rate and rhythm. 2+ palpable pulses. ABDOMEN: Protuberant, soft, nondistended. No hernia. MUSCULOSKELETAL: No clubbing, cyanosis or edema. NEURO: No focal or lateralizing signs. Cranial nerves 2 through 12 grossly within normal limits. PSYCH: Appropriate affect. Alert and oriented to person, place and time. SKIN: Has panniculitis. Well-perfused. Good skin turgor. ASSESSMENT: 1. Morbid obesity due to excess calories. 2. Body mass index reduced from 47.5 down to 38.3 3. Family history of morbid obesity. 4. Osteoarthritis of bilateral knees. 5. Osteoarthritis of bilateral ankles. 6. 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 7. Gastroesophageal reflux disease. 8. Chronic panniculitis. 9. Hypertensive heart disease. 10. Iron deficiency anemia. 11. Diabetes, type 2. 12. Obstructive sleep apnea. 13. Hypercholesterolemia. 14. Vitamin D deficiency. 15. Hypothyroidism. 16. Restless leg syndrome. 17. Panniculitis. 18. Supraventricular tachycardia 19. Diabetic gastroparesis 20. Recurrent hiatal hernia 21. Erosive esophagitis 22. Status post gastric bypass. 23. Iron deficiency anemia PLAN: 1. Recommend bariatric labs 2. Recommend protein intake over 75 grams daily Laboratory Last Values WBC 6.9 k/uL (3.8-10.6) 04/06/19 14:56 RBC 5.47 m/uL (3.80-5.40) H 04/06/19 14:56 Hgb 14.5 gm/dL (11.4-16.0) D 04/06/19 14:56 Hct 45.8 % (34.0-46.0) 04/06/19 14:56 MCV 83.8 fL (80.0-100.0) 04/06/19 14:56 MCH 26.5 pg (25.0-35.0) 04/06/19 14:56 MCHC 31.6 g/dL (31.0-37.0) 04/06/19 14:56 RDW 15.9 % (11.5-15.5) H 04/06/19 14:56 Plt Count 242 k/uL (150-450) 04/06/19 14:56 PT 9.5 sec (9.0-12.0) 04/06/19 14:56 INR 0.9 (<1.2) 04/06/19 14:56 APTT 24.0 sec (22.0-30.0) 04/06/19 14:56 Sodium 143 mmol/L (135-145) 04/06/19 14:56 Potassium 4.6 mmol/L (3.5-5.5) 04/06/19 14:56 Chloride 101 mmol/L (96-109) 04/06/19 14:56 Carbon Dioxide 32.0 mmol/L (21.6-31.8) H 04/06/19 14:56 Anion Gap 10.00 mmol/L (4.00-12.00) 04/06/19 14:56 BUN 14.0 mg/dL (9.0-27.0) 04/06/19 14:56 Creatinine 0.7 mg/dL (0.6-1.5) 04/06/19 14:56 Est GFR (CKD-EPI)AfAm 104.6 (60.0-200.0) 04/06/19 14:56 Est GFR (CKD-EPI)NonAf 90.3 (60.0-200.0) 04/06/19 14:56 BUN/Creatinine Ratio 20.00 Ratio (12.00-20.00) 04/06/19 14:56 Glucose 130 mg/dL (70-110) H 04/06/19 14:[address] Glu mg/dL 123 04/06/19 14:56 Hemoglobin A1c 5.9 % (4.0-6.0) 04/06/19 14:56 Calcium 9.9 mg/dL (8.7-10.3) 04/06/19 14:56 Phosphorus 5.1 mg/dL (2.4-5.1) 04/06/19 14:56 Magnesium 2.2 mg/dL (1.5-2.4) 04/06/19 14:56 Iron 83 ug/dL (50-170) 04/06/19 14:56 TIBC 361 ug/dL (228-460) 04/06/19 14:56 % Saturation 22.99 (12.00-45.00) 04/06/19 14:56 Ferritin 112.9 ng/mL (10.0-291.0) 04/06/19 14:56 Total Bilirubin 0.4 mg/dL (0.3-1.2) 04/06/19 14:56 AST 21 U/L (13-35) 04/06/19 14:56 ALT 30 U/L (8-44) 04/06/19 14:56 Alkaline Phosphatase 118 U/L (41-126) 04/06/19 14:56 Total Protein 6.6 g/dL (6.2-8.2) 04/06/19 14:56 Albumin 4.60 g/dL (3.80-4.90) 04/06/19 14:56 Globulin 2.0 g/dL (1.6-3.3) 04/06/19 14:56 Albumin/Globulin Ratio 2.30 g/dL (1.60-3.17) 04/06/19 14:56 Prealbumin 30.0 mg/dL (18.0-42.0) 04/06/19 14:56 Triglycerides 125.0 mg/dL (0.0-149.0) 04/06/19 14:56 Cholesterol 208 mg/dL (0-200) H 04/06/19 14:56 LDL Cholesterol, Calc 131.0 mg/dL (0.0-131.0) 04/06/19 14:56 VLDL Cholesterol, Calc 25.00 mg/dL (5.00-40.00) 04/06/19 14:56 HDL Cholesterol 52.0 mg/dL (40.0-60.0) 04/06/19 14:56 Cholesterol/HDL Ratio 4.00 04/06/19 14:56 Vitamin A 76 ug/dL (38-106) 04/06/19 14:56 Vitamin B1 97 ug/L (38-122) 04/06/19 14:56 Vitamin B12 2984.0 pg/mL (200.0-944.0) H 04/06/19 14:56 Vitamin D 25-Hydroxy 24.4 ng/mL (30.0-100.0) L 04/06/19 14:56 Folate 21.0 ng/mL 04/06/19 14:56 TSH 2.050 uIU/mL (0.350-5.500) 04/06/19 14:56 PTH Intact 70.7 pg/mL (14.0-72.0) 04/06/19 14:56 Copper 1488 ug/L (810-1990) 04/06/19 14:56 Selenium 95 mcg/L (63-160) 04/06/19 14:56 Zinc 72 ug/dL (60-130) 04/06/19 14:56 Objective - Vital Signs Vital signs: Vital Signs Temp 98.0 F 04/06/19 13:46 Pulse 86 04/06/19 13:46 Resp BP 163/93 04/06/19 13:46 Pulse Ox Intake & Output 04/05/19 04/06/19 04/06/19 18:59 06:59 18:59 Weight 106.141 kg - Labs CBC & Chem 7: 04/06/19 14:56 04/06/19 14:56
[2019-04-06 15:23] LABS: RBC 5.47 m/uL (3.80-5.40); WBC 6.9 k/uL (3.8-10.6)
[2019-04-06 15:24] LABS: HCT 45.8 % (34.0-46.0); MCH 26.5 pg (25.0-35.0); MCHC 31.6 g/dL (31.0-37.0); MCV 83.8 fL (80.0-100.0); Mean Platelet Volume 8.3; Platelet Count 242 k/uL (150-450); RDW 15.9 % (11.5-15.5)
[2019-04-06 15:29] LABS: INR 0.9 (<1.2); Prothrombin Time 9.5 sec (9.0-12.0)
[2019-04-06 23:18] LABS: HGB 14.5 gm/dL (11.4-16.0)
[2019-04-07 00:01] LABS: Hemoglobin A1C 5.9 % (4.0-6.0)
[2019-04-07 00:13] LABS: Ferritin 112.9 ng/mL (10.0-291.0)
[2019-04-07 00:54] LABS: % Iron Saturation 22.99 (12.00-45.00); African American GFR (CKD) 104.6 (60.0-200.0); Albumin 4.6 g/dL (3.80-4.90); Albumin/Globulin Ratio 2.3 (1.60-3.17); Calcium 9.9 mg/dL (8.7-10.3); Magnesium 2.2 mg/dL (1.5-2.4); Non-African American GFR(CKD) 90.3 (60.0-200.0); Phosphorus 5.1 mg/dL (2.4-5.1); Potassium 4.6 mmol/L (3.5-5.5); Total Bilirubin 0.4 mg/dL (0.3-1.2); Total Protein 6.6 g/dL (6.2-8.2)
[2019-04-07 14:51] LABS: Zinc, Serum 72 ug/dL (60-130)
[2019-04-08 07:45] LABS: Vitamin A 76 ug/dL (38-106)
[2019-04-08 10:48] LABS: Vit B1(Thiamine) 97 ug/L (38-122)
[2019-04-09 00:18] LABS: Selenium 95 mcg/L (63-160)
== END | disposition home or self-care (01) ==
LOC: BARWHC3 13:10
PROVIDERS: ATTEND Surgery Plastic and Reconstructive Surgery
DX: E66.01 Morbid (severe) obesity due to excess calories (principal); Z68.38 Body mass index [BMI] 38.0-38.9, adult; M17.0 Bilateral primary osteoarthritis of knee; M19.072 Primary osteoarthritis, left ankle and foot; M19.071 Primary osteoarthritis, right ankle and foot; M47.816 Spondylosis without myelopathy or radiculopathy, lumbar region; K21.9 Gastro-esophageal reflux disease without esophagitis; M79.3 Panniculitis, unspecified; I11.9 Hypertensive heart disease without heart failure; D50.9 Iron deficiency anemia, unspecified; E11.9 Type 2 diabetes mellitus without complications; G47.33 Obstructive sleep apnea (adult) (pediatric); E78.00 Pure hypercholesterolemia, unspecified; E55.9 Vitamin D deficiency, unspecified; E03.9 Hypothyroidism, unspecified; G25.81 Restless legs syndrome; I47.1 Supraventricular tachycardia; K31.84 Gastroparesis; K44.9 Diaphragmatic hernia without obstruction or gangrene; K22.10 Ulcer of esophagus without bleeding; Z98.84 Bariatric surgery status; E21.1 Secondary hyperparathyroidism, not elsewhere classified; E89.1 Postprocedural hypoinsulinemia; K90.9 Intestinal malabsorption, unspecified; K74.1 Hepatic sclerosis; N19 Unspecified kidney failure; K50.90 Crohn's disease, unspecified, without complications
CPT/HCPCS: 84255; 84134; 84425; 80061; 80053; 82607; 82728; 82525; 82746; 83540; 83550; 83735; 84100; 84443; 84590; 84630; 85027; 85610; 85730; 82306; 83970; 83036; 97803; 36415; G0463; 99211

== ENCOUNTER → 2019-08-24 | Outpatient (CLI) | payer MEDICARE | END | disposition home or self-care (01) | LOC: LABWHC1 07:45 | PROVIDERS: ATTEND Family Medicine | DX: Z11.59 Encounter for screening for other viral diseases (principal) ==

== ENCOUNTER → 2019-11-09 | Outpatient (CLI) | payer MEDICARE | END | disposition home or self-care (01) | LOC: LABWHC1 10:03 | PROVIDERS: ATTEND Family Medicine | DX: Z03.89 Encounter for observation for other suspected diseases and conditions ruled out (principal) | CPT/HCPCS: U0003; C9803 ==